=== PATIENT | female | born 1995 | race Caucasian/White ===

== ENCOUNTER 2023-04-21 16:20 | Emergency (ER) | payer OTHER, SELFPAY ==
[2023-04-21] VITALS (37 sets, daily range): BP systolic 0–147; BP diastolic 0–106; PULSE 104–153; RESP 16–39; O2SAT 53–99; BMI 56.5
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
--- NOTE | 2023-04-21 16:48 | XR_ITS ---
The [address] [address] Patient Name: GEOVANY GONZALEZ MRN: [id number] date: 1995 Sex: F Assigned Patient Location: ER Current Patient Location: ED.MAIN Accession/Order Number: [id number] Exam Date: 04/21/2023 18:19 Report Date: 04/21/2023 19:12 At the request of: APPLE BLEDSOE Procedure: XR chest 1V EXAM: XR chest 1V HISTORY: Dyspnea; technologist notes state overdose, unresponsive and finding. COMPARISON: 01/28/2021. TECHNIQUE: AP supine portable view of the chest performed. FINDINGS: The trachea is midline. The heart size is within normal limits. The cardiomediastinal silhouette and hilar shadows are within normal limits. There are low lung volumes with elevation of the right hemidiaphragm. There is no consolidation or infiltrates. There is no pleural effusion or pulmonary vascular congestion. There is no pneumothorax or osseous abnormality. XR/XR chest 1V IMPRESSION: Unremarkable expiratory chest. Electronically authenticated by: LOU BARRETT Date: 04/21/2023 19:12
--- NOTE | 2023-04-21 16:48 | ECG_ITS ---
The [facility] Test Date: 2023-04-21 Pat Name: GEOVANY GONZALEZ Department: Room: - Gender: Female School Cook: : 1995 Requested By: TOLU PLAZA Order Number: [id number] Reading MD: ANTIONETTE HIGGINS Measurements Intervals [place] Rate: 138 P: 233 [place]: 170 QRS: 81 QRSD: 78 T: 54 QT: 308 QTc: 389 Interpretive Statements Sinus tachycardia with PVC [address] depression 0102 ARTIFACT PRESENT 9150 abnormal ECG No previous ECG available for comparison Electronically Signed On 04-22-2023 7:11:00 EDT by ANTIONETTE HIGGINS
--- NOTE | 2023-04-21 16:50 | CT_ITS ---
The [address] [address] Patient Name: GEOVANY GONZALEZ MRN: [id number] date: 1995 Sex: F Assigned Patient Location: ER Current Patient Location: ER Accession/Order Number: [id number] Exam Date: 04/21/2023 18:30 Report Date: 04/21/2023 19:20 At the request of: APPLE BLEDSOE Procedure: CT head/brain wo con EXAM: CT scan of the head without contrast. Dose reduction technique used: Automated exposure control and/or adjustment of the mA and/or kV according to patient size and/or use of iterative reconstruction technique. REASON FOR EXAM: altered consciousness COMPARISON: CT scan dated 09/27/2018 CT/CT head/brain wo con IMPRESSION: Motion artifact degrades image quality and severely reduces sensitivity of the exam. No large intracranial hemorrhage. No mass effect or midline shift. No hydrocephalus. Remainder unremarkable. Electronically authenticated by: ALEXANDRA GARDNER Date: 04/21/2023 19:20
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
[2023-04-21] MEDS: 0.9 % SODIUM CHLORIDE 1,000 ML 100 ML IV (17:13)
[2023-04-21 17:17] LABS: pH VBG 7.381 (7.330-7.430)
[2023-04-21 17:18] LABS: PCO2 VBG 35.6 mmHg (40.0-52.0)
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
[2023-04-21 17:51] LABS: Amphetamine Screen Urine POSITIVE (NEGATIVE); Cannabinoid Screen Urine NEGATIVE (NEGATIVE); Cocaine Screen Urine NEGATIVE (NEGATIVE); Methamphetamines Screen Urine POSITIVE (NEGATIVE); Opiate Screen Urine NEGATIVE (NEGATIVE); Phencyclidine Screen Urine NEGATIVE (NEGATIVE)
[2023-04-21 17:52] LABS: Barbiturates Screen Urine NEGATIVE (NEGATIVE); Benzodiazepines Screen Urine NEGATIVE (NEGATIVE); Buprenorphine Screen Urine NEGATIVE (NEGATIVE); Methadone Screen Urine NEGATIVE (NEGATIVE); Oxycodone Screen Urine NEGATIVE (NEGATIVE); Tricyclic Antidepressant Urine NEGATIVE (NEGATIVE)
[2023-04-21] MEDS: NALOXONE HCL 2 MG/2 ML SYRINGE NS (18:21)
[2023-04-21] MEDS: LORAZEPAM 2 MG/ML 1 ML VIAL IV ×2 (18:22→20:36)
[2023-04-21 18:31] LABS: Alkaline Phosphatase 112 U/L (46-116); Anion Gap 22.4; BUN Creatinine Ratio 16.1; Bilirubin Total 1.4 mg/dL (0.2-1.0); Calcium 10.9 mg/dL (8.5-10.1); Carbon Dioxide 19.7 mmol/L (21.0-32.0); Chloride 108 mmol/L (98-107); Estimated GFR (African America 29 (>=60); Estimated GFR (Non-African Ame 24 (>=60); Glucose 150 mg/dL (74-106); Sodium 144 mmol/L (136-145); Total Protein 8.3 g/dL (6.4-8.2)
[2023-04-21 18:36] LABS: Salicylate <2.8 mg/dL (<=19.9)
[2023-04-21 18:46] LABS: Acetaminophen <2.0 ug/mL (10.0-30.0); Ethanol <3 mg/dL
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
[2023-04-21 18:51] LABS: Troponin I High Sensitivity 733.1 pg/mL (4.0-51.3)
[2023-04-21 18:52] LABS: Potassium 6.1 mmol/L (3.5-5.1)
[2023-04-21 19:00] LABS: Albumin Globulin Ratio 0.7; Albumin Level 3.3 g/dL (3.4-5.0)
[2023-04-21 19:01] LABS: Alanine Aminotransferase 1794 U/L (14-59)
--- NOTE | 2023-04-21 19:02 | PC.NURSE ---
nelli schumacher dark yellow urine pt remians in 4 pt restraints at this time [facility]0 infusing without difficulities pt remains agitated and on the quality control director at this time report given to avril jc rn and santo galloway
[2023-04-21 19:26] LABS: Lactate/Lactic Acid 4.8 mmol/L (0.4-2.0)
[2023-04-21 20:01] LABS: Myoglobin 14613 ng/mL (9-82)
[2023-04-21] MEDS: HALOPERIDOL LACTATE 5 MG/ML VIAL 10 MG IM (20:36)
[2023-04-21] MEDS: DIPHENHYDRAMINE HCL 50 MG/ML (1ML) VIAL IV (20:36)
[2023-04-21 21:05] LABS: Hematocrit 40.8 % (36.0-48.0); Hemoglobin 14.4 g/dL (12.0-16.0); Mean Corpuscular HGB Conc 35.3 g/dL (29.9-35.2); Mean Corpuscular Hemoglobin 30.6 pg (26.7-34.0); Mean Corpuscular Volume 86.8 fL (81.0-99.0); Mean Platelet Volume 9.1 fL (9.5-13.5); Platelet Count 546 10^3/uL (150-450); Red Cell Distribution Width 12.4 % (11.0-15.0); White Blood Count 27.2 10^3/uL (4.0-11.0)
[2023-04-21] MEDS: 0.9 % SODIUM CHLORIDE 1,000 ML 999 ML IV (21:07)
[2023-04-21] MEDS: SODIUM BICARBONATE 150 MEQ in DEXTROSE 5 % IN WATER 1,000 ML 250 MEQ IV (21:07)
[2023-04-21 21:24] LABS: Potassium 3.6 mmol/L (3.5-5.1)
[2023-04-21 21:27] LABS: Bilirubin Urine MODERATE (NEGATIVE); Blood Urine LARGE (NEGATIVE); Clarity Urine CLEAR (CLEAR); Color Urine DK. YELLOW (YELLOW); Glucose Urine UA 100 mg/dL (NEGATIVE); Ketones Urine TRACE mg/dL (NEGATIVE); Leukocyte Esterase Urine NEGATIVE (NEGATIVE); Nitrite Urine NEGATIVE (NEGATIVE); Protein Urine >=300 mg/dL (NEG/TRACE); Specific Gravity Urine >=1.030 (1.005-1.025); pH Urine 5.5 (5.0-9.0)
[2023-04-21 21:39] LABS: Lymphocytes Absolute Manual 1.36 10^3/uL (1.20-3.80); Monocytes Absolute Manual 1.36 10^3/uL (0.30-0.80); Segmented Neut Absolute Manual 24.48 10^3/uL (1.4-6.5)
[2023-04-21] MEDS: 0.9 % SODIUM CHLORIDE 1,000 ML 1000 ML IV (21:42)
[2023-04-21 21:43] LABS: Albumin Globulin Ratio 0.8; Albumin Level 3.5 g/dL (3.4-5.0); Alkaline Phosphatase 102 U/L (46-116); Bilirubin Total 1.2 mg/dL (0.2-1.0); Globulin 4.2 g/dL; Total Protein 7.7 g/dL (6.4-8.2)
[2023-04-21 21:47] LABS: Lactate/Lactic Acid 2.2 mmol/L (0.4-2.0)
[2023-04-21 21:48] LABS: Alanine Aminotransferase 1742 U/L (14-59); Aspartate Amino Transferase 1771 U/L (15-37); Bilirubin Direct 0.6 mg/dL (0.0-0.2); Creatine Kinase 10778 U/L (26-192)
[2023-04-21 21:49] LABS: Troponin I High Sensitivity 1160.2 pg/mL (4.0-51.3)
[2023-04-21 21:51] LABS: Bacteria Urine TRACE #/HPF (NONE SEEN); Cast Seen? NONE SEEN #/LPF (NONE SEEN); Mucus Urine NONE SEEN (NONE SEEN); Squamous Epithelial Cell Urine FEW #/LPF (NONE/RARE); Urine Microscopic Indicated YES; WBC Urine 0-2 #/HPF (NONE SEEN)
[2023-04-21 21:52] LABS: Amorphous Sediment Urine MANY; Crystals Seen? Seen #/HPF (None Seen); HCG Qualitative Urine* NEGATIVE (NEGATIVE); Urine Culture Indicated NO
[2023-04-21] MEDS: 0.9 % SODIUM CHLORIDE 1,000 ML 150 ML IV (22:50)
[2023-04-21 23:27] LABS: Acetaminophen <2.0 ug/mL (10.0-30.0)
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
[2023-04-22 00:27] VITALS: BP 130/89; PULSE 119; RESP 32; O2SAT 98
== END 2023-04-22 00:28 | disposition short-term general hospital (02) ==
PROVIDERS: Emergency Medicine Emergency Medical Services; Emergency Provider Emergency Medicine; PCP Nurse Practitioner
DX: T43.651A Poisoning by methamphetamines accidental (unintentional), initial encounter (principal); T43.621A Poisoning by amphetamines, accidental (unintentional), initial encounter
CPT/HCPCS: 36415; 70450; 71045; 80053; 80076; 80179; 80307; 80320; 80329; 81001; 82550; 82800; 83605; 83874; 84132; 84484; 84703; 85027; 93005; 96374; 96375; 96376; 99285

== ENCOUNTER 2023-08-04 00:29 | Emergency (ER) | payer OTHER, SELFPAY ==
[2023-08-04 00:31] VITALS: BP 156/96; PULSE 111; RESP 18; TEMP 36.9; O2SAT 98; BMI 38.4
--- NOTE | 2023-08-04 01:01 | ED_ITS ---
HPI - Eye Problem General Chief complaint: Eye Problems Stated complaint: RT EYE SWELLING Time Seen by Provider: 08/04/23 00:48 Source: patient Mode of arrival: walk-in Limitations: no limitations History of Present Illness HPI Narrative: This 28-year-old female who wears corrective lenses but not contact lenses presents for evaluation of one week of redness and tenderness and swelling to the right lower eyelid. She states there has been purulent drainage from the area. She has no pain with extraocular movement. There is no facial redness or swelling. She has been using teabags to the area and applying warm compresses. She does have the agency trainer/control systems specialist that she sees locally for her eyeglasses and eye exams. She also has a history of MRSA in the past. She has not had a fever. She states she does not wear contact lenses and she does not wear makeup. Related Data Home Medications Medication Instructions Recorded Confirmed aripiprazole 10 mg tablet 10 mg PO DAILY 08/04/23 08/04/23 buspirone 10 mg tablet 10 mg PO BID 08/04/23 08/04/23 clonidine HCl 0.1 mg tablet 0.1 mg PO TID 08/04/23 08/04/23 cyclobenzaprine 10 mg tablet 10 mg PO TID 08/04/23 08/04/23 gabapentin 300 mg capsule 300 mg PO TID 08/04/23 08/04/23 hydroxyzine HCl 25 mg tablet 25 mg PO DAILY 08/04/23 08/04/23 Allergies Allergy/AdvReac Type Severity Reaction Status Date / Time No Known Drug Allergies Allergy Verified 04/21/23 18:58 [facility] Social History Smoking status: Current every day smoker Exam Narrative Exam Narrative: Nurses note and vital signs reviewed; She is afebrile, mildly tachycardic with a pulse of 111 and blood pressures elevated at 156/96, she is not hypoxic with pulse ox of 98 percent on room air General: Alert, nontoxic female, notable right lower eyelid and conjunctiva swelling Skin: Warm, dry, no pallor noted. There is no rash noted. Head: Normocephalic, atraumatic Eye: Pupils are equal and reactive, vision is grossly intact, the right eye is notable for marked swelling of the lower eyelid with a small pustule on the lateral aspect of the lower eyelid which was expressed and cultured. There is no pain with extraocular movement. There is no periorbital redness swelling or sign of cellulitis. Ears, Nose, Mouth, and Throat: oral mucosa is moist. Nares patent. Mouth without vesicles. Cardiovascular: Regular Rate and Rhythm Respiratory: Patient is in no distress, no accessory muscle use, lungs are clear to auscultation, no wheezing, rales or rhonchi Neurological: A&O x4, normal speech Psychiatric: Cooperative Constitutional Vital Signs, click to edit/add: Last Vital Signs Temp 98.5 F 08/04/23 00:31 Pulse 111 H 08/04/23 00:31 Resp 18 08/04/23 00:31 BP 156/96 H 08/04/23 00:31 Pulse Ox 98 08/04/23 00:31 O2 Del Method Room Air 08/04/23 00:31 Course Vital Signs Vital signs: Vital Signs Temperature 98.5 F 08/04/23 00:31 Pulse Rate 111 H 08/04/23 00:31 Respiratory Rate 18 08/04/23 00:31 Blood Pressure 156/96 H 08/04/23 00:31 Pulse Oximetry 98 08/04/23 00:31 Oxygen Delivery Method Room Air 08/04/23 00:31 Temperature 98.5 F 08/04/23 00:31 Pulse Rate 111 H 08/04/23 00:31 Respiratory Rate 18 08/04/23 00:31 Blood Pressure 156/96 H 08/04/23 00:31 Pulse Oximetry 98 08/04/23 00:31 Oxygen Delivery Method Room Air 08/04/23 00:31 MDM - Eye Problem MDM Narrative Medical decision making narrative: This 28-year-old female with a history of MRSA who wears corrective lenses but not contact lenses presents for evaluation of one week of lower right eyelid swelling with conjunctival injection and a stye at the lateral aspect of the right lower eyelid. She has been using warm compresses and teabags with mild clinical improvement. She has not had a fever. She has no pain with extraocular movement. She denies any blurred vision. She states she has been having purulent drainage from the area. She had a small pustule at the lateral aspect of the right lower inner eyelid that I compressed and expressed some purulent drainage that was cultured. 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 She was given oral clindamycin instead and erythromycin ointment to use for the stye and conjunctival injection. He is instructed to continue using the warm compresses and tea bags and follow closely with her control systems specialist/agency trainer for further evaluation and treatment. Culture is pending at this time. Discharge Plan Discharge Chief Complaint: Eye Problems Clinical Impression: Hordeolum external, Blepharitis of eyelid of right eye Patient Disposition: Home, Self-Care Condition: Good Prescriptions / Home Meds: No Action aripiprazole 10 mg tablet 10 mg PO DAILY buspirone 10 mg tablet 10 mg PO BID clonidine HCl 0.1 mg tablet 0.1 mg PO TID cyclobenzaprine 10 mg tablet 10 mg PO TID gabapentin 300 mg capsule 300 mg PO TID hydroxyzine HCl 25 mg tablet 25 mg PO DAILY Instructions: Stye (ED), Blepharitis (ED) Additional Instructions: Continue using warm compresses to the right eye area. Use antibiotics as directed. Follow up as soon as possible with your control systems specialist or eye doctor. Return to the emergency department for change in her vision, worsening eye pain, fever or pain with any movement of upper respiratory infection. Stand Alone Forms: Portal Instructions Referrals: GHASSAN AL [Primary Care Provider] - 1 week
[2023-08-04] MEDS: ERYTHROMYCIN OP OINT 0.5% 1 GM TUBE OP (01:28)
[2023-08-04] MEDS: CLINDAMYCIN HCL 150 MG CAPSULE 300 MG PO (01:37)
--- NOTE | 2023-08-06 16:51 | PC.NURSE ---
PT CALLED IN NEW ANTIBIOTIC (BACTRIM) FOR POSITIVE EYE CULTURE. EVALUATED BY COLLEEN SAVAGE.
== END 2023-08-04 02:00 | disposition home or self-care (01) ==
PROVIDERS: Emergency Provider Emergency Medicine; PCP Nurse Practitioner Family
DX: H00.012 Hordeolum externum right lower eyelid (principal); H01.002 Unspecified blepharitis right lower eyelid; Z86.14 Personal history of Methicillin resistant Staphylococcus aureus infection; Z79.899 Other long term (current) drug therapy; F17.210 Nicotine dependence, cigarettes, uncomplicated
CPT/HCPCS: 87070; 87150; 87186; 99284

== ENCOUNTER 2024-05-10 06:51 | Emergency (ER) | payer SELFPAY ==
[2024-05-10 06:57] VITALS: BP 144/100; PULSE 103; TEMP 36.9; O2SAT 99; BMI 33.7
--- OUTSIDE RECORDS SUMMARY | 2024-05-10 06:58 | XMS_ITS | CCD ---
Author Organization [facility] Care Team Providers Care Communication Equipment Mechanic Name Role Phone NEAL HAMMOND Referring Unavailable NEAL HAMMOND Primary Care Unavailable DR NANI GUNTER Admitting Unavailable JANI, DR CARDOZA Attending Unavailable THANH TRISTAN Primary Care Unavailable JANI, DR CARDOZA Consulting Unavailable Vickie Nuñez Primary Care Provider [phone] NON STAFF Primary Care Provider UnavailDO Truong De Guzman Emergency Provider [phone] Truong Concepcion Attending Unavailable Truong Concepcion Admitting Unavailable NON STAFF Primary Care Unavailable THANH TRISTAN Primary Care Unavailable MARLYS STEWART Attending Unavailable Medications Current Medications Medication Drug Class(es) Dates Sig (Normalized) Sig (Original) busPIRone hydrochloride 5 mg oral tablet (3 sources) Start: 05-21-2023 take 5 mg by mouth twice daily Buspirone Active 5 MG PO Twice daily May 21, 2023 12:00am Start: 03-30-2023 take 5 mg by mouth twice daily 5 mg, Oral, 2 TIMES DAILY, First dose on Thu04/24/23 at 2100, Until Discontinued cefTRIAXone (ROCEPHIN) 1,000 mg in sterile water 10 mL IV syringe (1 source) Start: 04-25-2023 End: 04-28-2023 cefTRIAXone (ROCEPHIN) 1,000 mg in sterile water 10 mL IV syringe cloNIDine hydrochloride 0.1 mg oral tablet (1 source) Central alpha-2 Adrenergic Agonist Start: 05-21-2023 take 0.1 mg by mouth three times daily Clonidine Hcl Active 0.1 MG PO Three times daily May 21, 2023 12:00am cyclobenzaprine hydrochloride 5 mg oral tablet (1 source) Muscle Relaxant Start: 05-21-2023 take 5 mg by mouth three times daily Cyclobenzaprine Active 5 MG PO Three times daily May 21, 2023 12:00am 0.3 ml enoxaparin sodium 100 mg/ml prefilled syringe (1 source) Low Molecular Weight Heparin Start: 04-23-2023 enoxaparin Sodium (LOVENOX) injection 30 mg gabapentin 300 mg oral capsule (1 source) Anti-epileptic Agent Start: 05-21-2023 take 300 mg by mouth three times daily Gabapentin Active 300 MG PO Three times daily May 21, 2023 12:00am hydrOXYzine hydrochloride 25 mg oral tablet (4 sources) Antihistamine Start: 05-21-2023 take 25 mg by mouth once daily Hydroxyzine Hcl Active 25 MG PO Daily May 21, 2023 12:00am Start: 04-23-2023 End: 04-23-2023 hydrOXYzine (VISTARIL) injec tion 25 mg Start: 03-30-2023 take 25 mg by mouth every eight hours as needed 25 mg, Oral, EVERY 8 HOURS PRN, Starting on Thu04/24/23 at 1640, Until Discontinued, Anxiety nitrofurantoin, macrocrystals 25 mg / nitrofurantoin, monohydrate 75 mg oral capsule (3 sources) Nitrofuran Antibacterial Start: 04-26-2023 End: 05-02-2023 nitrofurantoin (macrocrystal-monohydrate) (MACROBID) capsule 100 mg ondansetron (ZOFRAN-ODT) disintegrating tablet 4 mg (1 source) Start: 04-22-2023 ondansetron (ZOFRAN-ODT) disintegrating tablet 4 mg oxyCODONE (1 source) Opioid Agonist Start: 04-26-2023 oxyCODONE (ROXICODONE) immediate release tablet 5 mg polyethylene glycol [id number] mg powder for oral solution (1 source) Osmotic Laxative Start: 04-22-2023 polyethylene glycol (GLYCOLAX) packet 17 g traZODone hydrochloride 50 mg oral tablet (3 sources) Serotonin Reuptake Inhibitor Start: 05-21-2023 take 50 mg by mouth once daily at bedtime Trazodone Active 50 MG PO Daily at bedtime May 21, 2023 12:00am Start: 03-30-2023 take 50 mg by mouth once daily as needed 50 mg, Oral, NIGHTLY PRN, Starting on Thu04/24/23 at 1640, Until Discontinued, Sleep Completed/Discontinued Medications Medication Drug Class(es) Dates Sig (Normalized) Sig (Original) acetaminophen 325 mg oral tablet (1 source) Start: 11-02-2017 End: 05-21-2023 take 2 tablets by mouth every six hours Acetaminophen (Tylenol) 325 mg Tablet Discontinued 2 TAB PO Every 6 hours November 02, 2017 12:00am May 21, 2023 6:34am 100 ml dexmedetomidine 0.004 mg/ml injection (1 source) Central alpha-2 Adrenergic Agonist Start: 04-22-2023 End: 04-26-2023 dexmedetomidine (PRECEDEX) 400 mcg in sodium chloride 0.9 % 100 mL infusion 250 ml glucose 50 mg/ml / sodium chloride 4.5 mg/ml injection (1 source) Start: 04-23-2023 End: 04-25-2023 dextrose 5 % and 0.45 % sodium chloride infusion 1 ml heparin sodium, porcine 5000 unt/ml prefilled syringe (1 source) Unfractionated Heparin, Anti-coagulant Start: 04-22-2023 End: 04-23-2023 heparin (porcine) injection 5,000 Units ibuprofen 200 mg oral tablet (1 source) Nonsteroidal Anti-inflammatory Drug Start: 12-11-2017 End: 12-16-2017 take 1 tablet by mouth three times daily Ibuprofen Discontinued 1 TAB PO Three times daily December 11, 2017 12:00am December 16, 2017 5:28pm 1 ml LORazepam 2 mg/ml injection (3 sources) Benzodiazepine Start: 04-23-2023 End: 04-23-2023 LORazepam (ATIVAN) injection 1 mg Start: 04-23-2023 End: 04-23-2023 LORazepam (ATIVAN) 2 MG/ML i njection Start: 04-22-2023 End: 04-22-2023 LORazepam (ATIVAN) injection 1 mg meloxicam 7.5 mg oral tablet (1 source) Nonsteroidal Anti-inflammatory Drug Start: 11-02-2017 End: 05-21-2023 take 1 tablet by mouth once daily Meloxicam Discontinued 1 TAB PO Daily November 02, 2017 12:00am May 21, 2023 6:34am microencapsulated potassium chloride 20 meq extended release oral tablet (4 sources) Start: 04-24-2023 End: 04-25-2023 potassium chloride (KLOR-CON M) extended release tablet 40 mEq Start: 04-22-2023 End: 04-22-2023 potassium chloride 20 mEq/50 mL IVPB (Central Line) 1000 ml sodium chloride 9 mg /ml injection (5 sources) Start: 04-22-2023 sodium chlorid e flush 0.9 % injection 5-40 mL Start: 04-22-2023 End: 04-26-2023 0.9 % sodium chloride infusi on Problems Problem Classification Problem Date Documented Date Episodic/Chronic Acute and unspecified renal failure (3 sources) Acute injury of kidney; Translations: [Acute kidney failure, unspecified] Onset: 04-22-2023 Resolved: 04-26-2023 Episodic Anxiety disorders (2 sources) Anxiety; Translations: [Anxiety disorder, unspecified] Onset: 04-25-2023 Chronic Cardiac dysrhythmias (1 source) Tachycardia; Translations: [Tachycardia, unspecified] 05-21-2023 Episodic Hepatitis (2 sources) Acute hepatitis C; Translations: [Acute hepatitis C without hepatic coma] Onset: 04-25-2023 Episodic Immunizations and screening for infectious disease (3 sources) Encounter for screening for infections with a predominantly sexual mode of transmission; Translations: [Encounter for screening for human immunodeficiency virus [HIV]] Onset: 06-03-2022 Episodic Mood disorders (2 sources) Depressive disorder; Translations: [Depression] Onset: 04-25-2023 Chronic Other connective tissue disease (1 source) Swelling of lower limb; Translations: [Other specified soft tissue disorders] Episodic Other connective tissue disease (1 source) Non-traumatic rhabdomyolysis; Translations: [Rhabdomyolysis] Episodic Other connective tissue disease (3 sources) Pain in lower limb; Translations: [Pain in leg, unspecified] Onset: 02-22-2024 05-21-2023 Episodic Other connective tissue disease (1 source) Pain in left lower limb; Translations: [Pain in left leg] Onset: 05-21-2023 Episodic Other connective tissue disease (1 source) Other specified soft tissue disorders; Translations: [Other specified soft tissue disorders] Onset: 05-21-2023 Episodic Other injuries and conditions due to external causes (1 source) Other injury of unspecified body region, initial encounter; Translations: [Other injury of unspecified body region, initial encounter] Onset: 02-22-2024 Episodic Other nervous system disorders (2 sources) Toxic metabolic encephalopathy; Translations: [Toxic metabolic encephalopathy] Onset: 04-25-2023 Resolved: 04-26-2023 Episodic Other screening for suspected conditions (not mental disorders or infectious disease) (5 sources) Encounter for screening for diseases of the blood and blood-forming organs and certain disorders involving the immune mechanism; Translations: [Other specified abnormal findings of blood chemistry] Onset: 05-30-2022 Episodic Poisoning by other medications and drugs (2 sources) Poisoning by unspecified drugs, medicaments and biological substances, undetermined, initial encounter; Translations: [Poisoning by unspecified drug or medicinal substance] Onset: 04-22-2023 Resolved: 04-26-2023 Episodic Residual codes; unclassified (1 source) Edema of lower extremity; Translations: [Localized edema] 05-21-2023 Episodic Skin and subcutaneous tissue infections (1 source) Local infection of the skin and subcutaneous tissue, unspecified; Translations: [Local infection of the skin and subcutaneous tissue, unspecified] Onset: 02-22-2024 Episodic Substance-related disorders (1 source) Substance abuse; Translations: [Other psychoactive substance use, unspecified, uncomplicated] 05-21-2023 Episodic Urinary tract infections (2 sources) Escherichia coli urinary tract infection; Translations: [Urinary tract infection, site not specified] Onset: 04-25-2023 Episodic Results Test Name Value Interpretation Reference Range Facility Activated partial thrombopla stin time (aPTT) in platelet poor plasma by coagulation aOrdered By: Truong Concepcion on 05-21-2023 aPTT Coag (PPP) [Time] 30.5 s 25.1-36.5 [facility] Comment on above: A hematocrit value g reater than 55% may lead to inaccurate results in coagulation testing. Patients having hematocrit values >55% require a special collection tube for coagulation studies. Please contact the laboratory at [phone] for redraw instructions. Alanine aminotransferase [En zymatic activity/volume] in Serum or PlasmaOrdered By: Truong Concepcion on 05-21-2023 ALT [Catalytic activity/Vol] 30 U/L 7-52 [facility] Albumin [Mass/volume] in Ser um or Plasma by Bromocresol green (BCG) dye binding methoOrdered By: Truong Concepcion on 05-21-2023 Albumin BCG dye [Mass/Vol] 4.1 g/dL 3.5-5.7 [facility] Alkaline phosphatase [Enzyma tic activity/volume] in Serum or PlasmaOrdered By: Truong Concepcion on 05-21-2023 ALP [Catalytic activity/Vol] 91 U/L 34-104 [facility] Amphetamine Screen Ql (U)Ord ered By: Truong Concepcion on 05-21-2023 Amphetamines Ql (U) Positive Negative [facility] Aspartate aminotransferase [ Enzymatic activity/volume] in Serum or PlasmaOrdered By: Truong Concepcion on 05-21-2023 AST [Catalytic activity/Vol] 30 U/L 13-39 [facility] Automated epithelial cells c ount in urine sediment (number/area)Ordered By: Truong Concepcion on 05-21-2023 Epithelial cells Auto (Urine sed) [#/Area] 20-49 [HPF] 0-2 [facility] Automated erythrocytes count in urine sediment (number/area)Ordered By: Truong Concepcion on 05-21-2023 RBC Auto (Urine sed) [#/Area] 0-1 [HPF] 0-4 [facility] Automated leukocytes count i n urine sediment (number/area)Ordered By: Truong Concepcion on 05-21-2023 WBC Auto (Urine sed) [#/Area] 0-1 [HPF] 0-4 [facility] Automated urine color determ inationOrdered By: Truong Concepcion on 05-21-2023 Color (U) Yellow Normal Yellow [facility] Comment on above: Order Comment: Name Collection Type:: Clean-Voided Midstream Performed By: #### U HCG, ADDONUAPLUS ####[facility] [id number] [place] [address] [facility] Automated urine hyaline cast s count (number/volume)Ordered By: Truong Concepcion on 05-21-2023 Hyaline casts Auto (U) [#/Vol] None seen [LPF] 0-1 [facility] B-Type Natriuretic Peptideon 05-21-2023 Natriuretic peptide B (Bld) [Mass/Vol] 9.0 pg/mL Normal 5-100 [facility] Comment on above: Result Comment: PERF ORMED BY: [facility] [address] [place] [address] PATHOLOGIST SHEET LAYER OBI MORRIS M.D. Performed By: #### P T, LACTIC, CMP, HS TROP, BNP, MG, CK, PTT ####[facility] [id number] [place] [address] [facility] Barbiturates [Presence] in U rine by Screen methodOrdered By: Truong Concepcion on 05-21-2023 Barbiturates Screen Ql (U) Negative Negative [facility] Basophils Auto (Bld) [#/Vol] Ordered By: Truong Concepcion on 05-21-2023 Basophils (Bld) [#/Vol] 0.1 10*3/uL 0.0-0.2 [facility] Basophils/100 WBC Auto (Bld) Ordered By: Truong Concepcion on 05-21-2023 Basophils/100 WBC (Bld) 0.6 % . [facility] Benzodiazepines Screen Ql (U )Ordered By: Truong Concepcion on 05-21-2023 Benzodiazepines Ql (U) Negative Negative [facility] Benzoylecgonine [Presence] i n Urine by Screen methodOrdered By: Truong Concepcion on 05-21-2023 Benzoylecgonine Screen Ql (U) Positive Negative [facility] Bilirubin Test strip Ql (U)O rdered By: Truong Concepcion on 05-21-2023 Bilirubin Ql (U) Negative Negative [facility] Bilirubin.total [Mass/volume ] in Serum or PlasmaOrdered By: Truong Concepcion on 05-21-2023 Bilirubin [Mass/Vol] 0.4 mg/dL 0.3-1.0 [facility] Calcium [Mass/volume] in Ser um or PlasmaOrdered By: Truong Concepcion on 05-21-2023 Calcium [Mass/Vol] 9.2 mg/dL 8.6-10.3 [facility] Cannabinoids [Presence] in U rine by Screen methodOrdered By: Truong Concepcion on 05-21-2023 Cannabinoids Screen Ql (U) Negative Negative [facility] Comment on above: These are unconfirme d results and should not be used for legal purposes. Drug Cut-Off Concentration: AMPH 1000 ng/mL AMY 200 ng/mL FANNY 200 ng/mL COCM 300 ng/mL OP 300 ng/mL PCP 25 ng/mL THC 20 ng/mL Carbon dioxide, total [Moles /volume] in Serum or PlasmaOrdered By: Truong Concepcion on 05-21-2023 CO2 [Moles/Vol] 28.3 mmol/L 21.0-31.0 [facility] Casts typing in urine sedime nt by light microscopyOrdered By: Truong Concepcion on 05-21-2023 Casts LM Nom (Urine sed) None seen [LPF] None Seen [facility] Chloride [Moles/volume] in S toyin or PlasmaOrdered By: Truong Concepcion on 05-21-2023 Chloride [Moles/Vol] 104 mmol/L 98-107 [facility] Complete Blood Count Auto Di ffon 05-21-2023 Basophils (Bld) [#/Vol] 0.1 10*3/uL Normal 0.0-0.2 [facility] Comment on above: Result Comment: PERF ORMED BY: [place] [address] PATHOLOGIST SHEET LAYER OBI MORRIS M.D. Performed By: #### C BC #### [address] Basophils/100 WBC (Bld) 0.6 % Normal . [facility] Comment on above: Performed By: #### C BC #### [place] [address] [place] Eosinophils (Bld) [#/Vol] 0.2 10*3/uL Normal 0.0-0.45 [facility] Comment on above: Performed By: #### C BC #### [place] [address] [place] Eosinophils/100 WBC (Bld) 2.2 % Normal . [facility] Comment on above: Performed By: #### C BC #### [address] Erythrocyte distribution width (RBC) [Ratio] 13.2 % Normal 11.9-15.3 [facility] Comment on above: Performed By: #### C BC #### [facility] [address] Hematocrit (Bld) [Volume fraction] 33.2 % Low 34.0-46.4 [facility] Comment on above: Performed By: #### C BC #### [facility] [address] Hemoglobin (Bld) [Mass/Vol] 11.4 g/dL Low 11.8-15.4 [facility] Comment on above: Performed By: #### C BC #### [facility] [address] Lymphocytes (Bld) [#/Vol] 2.8 10*3/uL Normal 1.00-4.8 [facility] Comment on above: Performed By: #### C BC #### [address] Lymphocytes/100 WBC (Bld) 27.4 % Normal . [facility] Comment on above: Performed By: #### C BC #### [facility] [address] MCH (RBC) [Entitic mass] 30.4 pg Normal 24.7-34.3 [facility] Comment on above: Performed By: #### C BC #### [address] MCV (RBC) [Entitic vol] 88.8 fL Normal 80-100 [facility] Comment on above: Performed By: #### C BC #### [address] Mean Corpuscular HGB Conc 34.2 g/dL Normal 32.0-35.0 [facility] Comment on above: Performed By: #### C BC #### [address] Monocytes (Bld) [#/Vol] 0.7 10*3/uL Normal 0.0-0.8 [facility] Comment on above: Performed By: #### C BC #### [facility] [address] [place] [address] [place] Monocytes/100 WBC (Bld) 20.95 % High 0.00-20.00 [facility] Comment on above: Result Comment: For adults in ED, MDW > 20.0 may be associated with a higher risk of sepsis during the first 12 hrs of hospital admission Performed By: #### C BC #### [facility] [address] Monocytes/100 WBC (Bld) 7.3 % Normal . [facility] Comment on above: Performed By: #### C BC #### [address] Neutrophils (Bld) [#/Vol] 6.4 10*3/uL Normal 1.8-7.7 [facility] Comment on above: Performed By: #### C BC #### [address] Neutrophils/100 WBC (Bld) 62.5 % Normal . [facility] Comment on above: Performed By: #### C BC #### [address] NRBC% 0.0 /100{WBC} Normal 0-0.5 [facility] Comment on above: Performed By: #### C BC #### [address] Platelet mean volume (Bld) [Entitic vol] 7.5 fL Normal 6.3-10.7 [facility] Comment on above: Performed By: #### C BC #### [place] [address] [place] Platelets (Bld) [#/Vol] 427 10*3/uL Normal 150-450 [facility] Comment on above: Performed By: #### C BC #### [place] [address] [place] RBC (Bld) [#/Vol] 3.74 10*6/uL Normal 3.60-5.00 [facility] Comment on above: Performed By: #### C BC #### [address] WBC (Bld) [#/Vol] 10.2 10*3/uL Normal 3.8-11.6 [facility] Comment on above: Performed By: #### C BC #### [address] Comprehensive Metabolic Pane patrice 05-21-2023 Albumin [Mass/Vol] 4.1 g/dL Normal 3.5-5.7 [facility] Comment on above: Performed By: #### P T, LACTIC, CMP, HS TROP, BNP, MG, CK, PTT #### [address] Albumin/Globulin [Mass ratio] 1.2 {ratio} Normal [facility] Comment on above: Performed By: #### P T, LACTIC, CMP, HS TROP, BNP, MG, CK, PTT #### [address] ALP [Catalytic activity/Vol] 91 U/L Normal 34-104 [facility] Comment on above: Performed By: #### P T, LACTIC, CMP, HS TROP, BNP, MG, CK, PTT #### [address] ALT [Catalytic activity/Vol] 30 U/L Normal 7-52 [facility] Comment on above: Performed By: #### P T, LACTIC, CMP, HS TROP, BNP, MG, CK, PTT #### [address] Anion gap [Moles/Vol] 5.3 mmol/L Low 6.0-15.0 [facility] Comment on above: Performed By: #### P T, LACTIC, CMP, HS TROP, BNP, MG, CK, PTT #### [address] AST [Catalytic activity/Vol] 30 U/L Normal 13-39 [facility] Comment on above: Performed By: #### P T, LACTIC, CMP, HS TROP, BNP, MG, CK, PTT #### [facility] [address] Bilirubin [Mass/Vol] 0.4 mg/dL Normal 0.3-1.0 [facility] Comment on above: Performed By: #### P T, LACTIC, CMP, HS TROP, BNP, MG, CK, PTT #### [facility] [address] Calcium [Mass/Vol] 9.2 mg/dL Normal 8.6-10.3 [facility] Comment on above: Performed By: #### P T, LACTIC, CMP, HS TROP, BNP, MG, CK, PTT #### [facility] [address] Chloride [Moles/Vol] 104 mmol/L Normal 98-107 [facility] Comment on above: Performed By: #### P T, LACTIC, CMP, HS TROP, BNP, MG, CK, PTT #### [facility] [address] CO2 [Moles/Vol] 28.3 mmol/L Normal 21.0-31.0 [facility] Comment on above: Performed By: #### P T, LACTIC, CMP, HS TROP, BNP, MG, CK, PTT #### [facility] [address] Creatinine [Mass/Vol] 0.72 mg/dL Normal 0.60-1.20 [facility] Comment on above: Performed By: #### P T, LACTIC, CMP, HS TROP, BNP, MG, CK, PTT #### [facility] [address] [place] [address] [place] Creatinine Clr Calc Pharmacy 135.61 Normal [facility] Comment on above: Performed By: #### P T, LACTIC, CMP, HS TROP, BNP, MG, CK, PTT #### [address] GFR/1.73 sq M.predicted MDRD (S/P/Bld) [Vol rate/Area] mL/min/{1.73_m2} Normal [facility] Comment on above: Performed By: #### P T, LACTIC, CMP, HS TROP, BNP, MG, CK, PTT #### [facility] [address] Globulin (S) [Mass/Vol] 3.3 g/dL [facility] Comment on above: Performed By: #### P T, LACTIC, CMP, HS TROP, BNP, MG, CK, PTT #### [facility] [address] Glucose [Mass/Vol] 120 mg/dL High 70-100 [facility] Comment on above: Result Comment: [facility] Glucose Reference Range is dependent on time and content of last meal. Glucose of more than 200 mg/dL in a nonstressed, ambulatory subject supports the diagnosis of Diabetes Mellitus. ADA recommended reference range Performed By: #### P T, LACTIC, CMP, HS TROP, BNP, MG, CK, PTT #### [facility] [address] [place] [address] Potassium [Moles/Vol] 3.6 mmol/L Normal 3.5-5.1 [facility] Comment on above: Performed By: #### P T, LACTIC, CMP, HS TROP, BNP, MG, CK, PTT #### [address] Protein [Mass/Vol] 7.4 g/dL Normal 6.4-8.9 [facility] Comment on above: Performed By: #### P T, LACTIC, CMP, HS TROP, BNP, MG, CK, PTT #### [facility] [address] Sodium [Moles/Vol] 134 mmol/L Low 136-145 [facility] Comment on above: Performed By: #### P T, LACTIC, CMP, HS TROP, BNP, MG, CK, PTT #### [facility] [address] Urea nitrogen [Mass/Vol] 8 mg/dL Normal 7-25 [facility] Comment on above: Performed By: #### P T, LACTIC, CMP, HS TROP, BNP, MG, CK, PTT #### [facility] [address] [place] [id number] [place] Creatine Kinaseon 05-21-2023 CK [Catalytic activity/Vol] 398 U/L High [facility] Comment on above: Performed By: #### P T, LACTIC, CMP, HS TROP, BNP, MG, CK, PTT ####[facility] Creatine kinase [Enzymatic a ctivity/volume] in Serum or PlasmaOrdered By: Truong Concepcion on 05-21-2023 CK [Catalytic activity/Vol] 398 U/L [facility] Creatinine [Mass/volume] in Serum or PlasmaOrdered By: Truong Concepcion on 05-21-2023 Creatinine [Mass/Vol] 0.72 mg/dL 0.60-1.20 [facility] Dipstick and Microscopicon 0 05-21-2023 Appearance (U) Cloudy Critically abnormal Clear [facility] Comment on above: Order Comment: Name Collection Type:: Clean-Voided Midstream Performed By: #### U HCG, ADDONUAPLUS ####[place] [id number] [address] Bacteria,Urine Rare High None Seen [facility] Comment on above: Order Comment: Name Collection Type:: Clean-Voided Midstream Performed By: #### U HCG, ADDONUAPLUS ####[address] Bilirubin,Urine Negative Normal Negative [facility] Comment on above: Order Comment: Name Collection Type:: Clean-Voided Midstream Performed By: #### U HCG, ADDONUAPLUS ####[place] [id number] [address] Glucose Ql (U) Normal Normal Normal [facility] Comment on above: Order Comment: Name Collection Type:: Clean-Voided Midstream Performed By: #### U HCG, ADDONUAPLUS ####[address] Hyaline Casts,Urine None Seen Normal 0-1 [facility] Comment on above: Order Comment: Name Collection Type:: Clean-Voided Midstream Performed By: #### U HCG, ADDONUAPLUS ####[address] [address] [facility] Ketones Ql (U) Negative Normal Negative [facility] Comment on above: Order Comment: Name Collection Type:: Clean-Voided Midstream Performed By: #### U HCG, ADDONUAPLUS ####[address] [address] [facility] Leukocyte esterase Test strip Ql (U) Negative Normal Negative [facility] Comment on above: Order Comment: Name Collection Type:: Clean-Voided Midstream Performed By: #### U HCG, ADDONUAPLUS ####[address] [address] [facility] Nitrite,Urine Negative Normal Negative [facility] Comment on above: Order Comment: Name Collection Type:: Clean-Voided Midstream Performed By: #### U HCG, ADDONUAPLUS ####[address] [address] [facility] Occult Blood,Urine Negative Normal Negative [facility] Comment on above: Order Comment: Name Collection Type:: Clean-Voided Midstream Performed By: #### U HCG, ADDONUAPLUS ####[address] [address] [facility] Other Casts,Urine None Seen Normal None Seen [facility] Comment on above: Order Comment: Name Collection Type:: Clean-Voided Midstream Performed By: #### U HCG, ADDONUAPLUS ####[address] [address] [facility] Protein,Urine Negative Normal Negative [facility] Comment on above: Order Comment: Name Collection Type:: Clean-Voided Midstream Performed By: #### U HCG, ADDONUAPLUS ####[address] [address] [facility] RBC LM.HPF (Urine sed) [#/Area] 0 /[HPF] Normal 0-4 [facility] Comment on above: Order Comment: Name Collection Type:: Clean-Voided Midstream Performed By: #### U HCG, ADDONUAPLUS ####[address] Specificy [place],Urine 1.011 Normal 1.001-1.030 [facility] Comment on above: Order Comment: Name Collection Type:: Clean-Voided Midstream Performed By: #### U HCG, ADDONUAPLUS ####[address] Squamous Epithelial Cell,Urine 20-49 High 0-2 [facility] Comment on above: Order Comment: Name Collection Type:: Clean-Voided Midstream Performed By: #### U HCG, ADDONUAPLUS ####[address] Urobilinogen,Urine Normal Normal Normal [facility] Comment on above: Order Comment: Name Collection Type:: Clean-Voided Midstream Performed By: #### U HCG, ADDONUAPLUS ####[address] WBC LM.HPF (Urine sed) [#/Area] 0 /[HPF] Normal 0-4 [facility] Comment on above: Order Comment: Name Collection Type:: Clean-Voided Midstream Performed By: #### U HCG, ADDONUAPLUS ####[address] Drug Screen,Urineon 05-21-20 23 Amphetamine Screen,Urine Positive High Negative [facility] Comment on above: Performed By: #### U RDS #### [facility] [address] [place] [address] [place] Barbiturate Screen,Urine Negative Normal Negative [facility] Comment on above: Performed By: #### U RDS #### [facility] [address] [place] [address] [place] Benzodiazepines Screen,Urine Negative Normal Negative [facility] Comment on above: Performed By: #### U RDS #### [facility] [address] [place] [address] [place] Cannabinoid Screen,Urine Negative Normal Negative [facility] Comment on above: Result Comment: Thes e are unconfirmed results and should not be used for legal purposes. Drug Cut-Off Concentration: AMPH 1000 ng/mL AMY 200 ng/mL FANNY 200 ng/mL COCM 300 ng/mL OP 300 ng/mL PCP 25 ng/mL THC 20 ng/mL PERFORMED BY: [place] [address] PATHOLOGIST SHEET LAYER OBI MORRIS M.D. Performed By: #### U RDS #### [address] Cocaine Screen,Urine Positive High Negative [facility] Comment on above: Performed By: #### U RDS #### [address] Opiate Screen,Urine Negative Normal Negative [facility] Comment on above: Performed By: #### U RDS #### [place] [address] [place] Phencyclidine Screen,Urine Negative Normal Negative [facility] Comment on above: Performed By: #### U RDS #### [address] ECG 12 lead ECGon 05-21-2023 ECG 12 lead ECG [facility] [employer] [address] [place] [address] Electrocardiograph Report Signed Patient: Tracy Bennett MR#: [id number] 436 : 1995 Acct:[id number] Age/Sex: 28 / F ADM Date: 05/21/23 Loc: ER Room: Type: [facility] ER Attending Dr: Ordering Provider: Truong Concepcion DO Date of Service: 05/21/23 ECG/ECG 12 lead ECG: Skin/Abscess/Foreign Body Copies to: Test Reason : Blood Pressure : 164/104 mmHG Vent. Rate : 122 BPM Atrial Rate : 122 BPM P-R Int : 144 ms QRS Dur : 080 ms QT Int : 314 ms P-R-T Axes : 060 034 027 degrees QTc Int : 447 ms Sinus tachycardia Confirmed by Truong CONCEPCION DO ([id number]) on 05/21/2023 12:21:01 PM Referred By: Electronically Signed By:Truong CONCEPCION DO Transcribed By: MUS Signed By Truong Concepcion, 0 05/21/23 1221 Normal [facility] Eosinophils Auto (Bld) [#/Vo l]Ordered By: Truong Concepcion on 05-21-2023 Eosinophils (Bld) [#/Vol] 0.2 10*3/uL 0.0-0.45 [facility] Eosinophils/100 WBC Auto (Bl d)Ordered By: Truong Concepcion on 05-21-2023 Eosinophils/100 WBC (Bld) 2.2 % . [facility] Erythrocyte distribution wid th Auto (RBC) [Ratio]Ordered By: Truong Concepcion on 05-21-2023 Erythrocyte distribution width (RBC) [Ratio] 13.2 % 11.9-15.3 [facility] Globulin Calc (S) [Mass/Vol] Ordered By: Truong Concepcion on 05-21-2023 Globulin (S) [Mass/Vol] 3.3 g/dL [facility] Glucose [Mass/volume] in Ser um or PlasmaOrdered By: Truong Concepcion on 05-21-2023 Glucose [Mass/Vol] 120 mg/dL 70-100 [facility] Comment on above: ADA recommended refe rence rangeRandom Glucose Reference Range is dependent on time and content of last meal. Glucose of more than 200 mg/dL in a nonstressed, ambulatory subject supports the diagnosis of Diabetes Mellitus. HCG ( test) IA.rapi d Ql (U)Ordered By: Truong Concepcion on 05-21-2023 HCG ( test) Ql (U) Negative [facility] HCG,Urineon 05-21-2023 Beta HCG ( test) Ql (U) Negative Normal [facility] Comment on above: Order Comment: Name Collection Type:: Clean-Voided Midstream Result Comment: PERF ORMED BY: [facility] [address] [place] [address] PATHOLOGIST SHEET LAYER OBI MORRIS M.D. Performed By: #### U HCG, ADDONUAPLUS ####[facility] Hematocrit Auto (Bld) [Volum e fraction]Ordered By: Truong Concepcion on 05-21-2023 Hematocrit (Bld) [Volume fraction] 33.2 % 34.0-46.4 [facility] Hemoglobin [Mass/volume] in BloodOrdered By: Truong Concepcion on 05-21-2023 Hemoglobin (Bld) [Mass/Vol] 11.4 g/dL 11.8-15.4 [facility] INR in Platelet poor plasma by Coagulation assayOrdered By: Truong loco on 05-21-2023 INR Coag (PPP) [Relative time] 1.2 {INR} [facility] Comment on above: INR Therapeutic Rang e A) Pre- and Peroperative OAT started two weeks before surgery. NOT HIP SURGERY: 1.5 - 2.5 HIP SURGERY: 2 - 3B) Primary and secondary prevention of venous THROMBOSIS: 2 - 3C) Active venous thrombosis, pulmonary embolismand prevention of recurrent venous thrombosis: 2 - 3D) Prevention of arterial thromboembolismincluding patients with mechanical heart valves: 3 - 4.5 Ketones Auto test strip (U) [Mass/Vol]Ordered By: Truong Kush on 05-21-2023 Ketones (U) [Mass/Vol] Negative Negative [facility] Lactate [Moles/volume] in Se rum or PlasmaOrdered By: Truong Concepcion on 05-21-2023 Lactate [Moles/Vol] 1.0 mmol/L 0.5-2.2 [facility] Lactic Acidon 05-21-2023 Lactate [Moles/Vol] 1.0 mmol/L Normal 0.5-2.2 [facility] Comment on above: Result Comment: PERF ORMED BY: [place] [address] PATHOLOGIST SHEET LAYER OBI MORRIS M.D. Performed By: #### P T, LACTIC, CMP, HS TROP, BNP, MG, CK, PTT #### [address] Leukocytes [#/volume] correc shlomo for nucleated erythrocytes in Blood by Automated counOrdered By: [facility]2023 WBC corrected for nucl RBC Auto (Bld) [#/Vol] 10.2 10*3/uL 3.8-11.6 [facility] Lymphocytes Auto (Bld) [#/Vo l]Ordered By: Truong Concepcion on 05-21-2023 Lymphocytes (Bld) [#/Vol] 2.8 10*3/uL 1.00-4.8 [facility] Lymphocytes/100 WBC Auto (Bl d)Ordered By: Truong Concepcion on 05-21-2023 Lymphocytes/100 WBC (Bld) 27.4 % . [facility] MCH Auto (RBC) [Entitic mass ]Ordered By: Truong Concepcion on 05-21-2023 MCH (RBC) [Entitic mass] 30.4 pg 24.7-34.3 [facility] MCHC Auto (RBC) [Mass/Vol]Or dered By: Truong Concepcion on 05-21-2023 MCHC (RBC) [Mass/Vol] 34.2 g/dL 32.0-35.0 [facility] MCV Auto (RBC) [Entitic vol] Ordered By: Truong Concepcion on 05-21-2023 MCV (RBC) [Entitic vol] 88.8 fL 80-100 [facility] Magnesiumon 05-21-2023 Magnesium [Mass/Vol] 1.9 mg/dL Normal 1.9-2.7 [facility] Comment on above: Result Comment: PERF ORMED BY: [place] [address] PATHOLOGIST SHEET LAYER OBI MORRIS M.D. Performed By: #### P T, LACTIC, CMP, HS TROP, BNP, MG, CK, PTT #### [facility] [address] [place] [address] Magnesium [Mass/volume] in S toyin or PlasmaOrdered By: Truong Concepcion on 05-21-2023 Magnesium [Mass/Vol] 1.9 mg/dL 1.9-2.7 [facility] Monocyte distribution width [Entitic volume] in Blood by AutomatedOrdered By: Truong Concepcion on 05-21-2023 Monocyte distribution width Auto (Bld) [Entitic vol] 20.95 % 0.00-20.00 [facility] Comment on above: For adults in ED, MD W > 20.0 may be associated with a higher risk of sepsis during the first 12 hrs of hospital admission Monocytes Auto (Bld) [#/Vol] Ordered By: Truong Concepcion on 05-21-2023 Monocytes (Bld) [#/Vol] 0.7 10*3/uL 0.0-0.8 [facility] Monocytes/100 WBC Auto (Bld) Ordered By: Truong Concepcion on 05-21-2023 Monocytes/100 WBC (Bld) 7.3 % . [facility] Natriuretic peptide B [Mass/ Vol]Ordered By: Truong Concepcion on 05-21-2023 Natriuretic peptide B (Bld) [Mass/Vol] 9.0 pg/mL 5-100 [facility] Neutrophils Auto (Bld) [#/Vo l]Ordered By: Truong Concepcion on 05-21-2023 Neutrophils (Bld) [#/Vol] 6.4 10*3/uL 1.8-7.7 [facility] Neutrophils/100 WBC Auto (Bl d)Ordered By: Truong Concepcion on 05-21-2023 Neutrophils/100 WBC (Bld) 62.5 % . [facility] Nitrite Test strip Ql (U)Ord ered By: Truong Concepcion on 05-21-2023 Nitrite Ql (U) Negative Negative [facility] No Panel InformationOrdered By: Truong Concepcion on 05-21-2023 Estimated GFR (CKD-EPI) > 60.0 mL/Min [facility] Creatinine Clearance (Chem 135.61 [facility] Nucleated erythrocytes [Pres ence] in Blood by Automated countOrdered By: Truong Concepcion on 05-21-2023 Nucleated RBC Auto Ql (Bld) 0.0 /100{WBC} 0-0.5 [facility] Opiates [Presence] in Urine by Screen methodOrdered By: Truong Concepcion on 05-21-2023 Opiates Screen Ql (U) Negative Negative [facility] Partial Thromboplastin Timeo n 05-21-2023 aPTT Coag (Bld) [Time] 30.5 s Normal 25.1-36.5 [facility] Comment on above: Result Comment: A he matocrit value greater than 55% may lead to inaccurate results in coagulation testing. Patients having hematocrit values >55% require a special collection tube for coagulation studies. Please contact the laboratory at [phone] for redraw instructions. PERFORMED BY: [facility] [address] [place] [address] PATHOLOGIST SHEET LAYER OBI MORRIS M.D. Performed By: #### P T, LACTIC, CMP, HS TROP, BNP, MG, CK, PTT #### [address] [address] [facility] Phencyclidine Screen Ql (U)O rdered By: Truong Concepcion on 05-21-2023 Phencyclidine Ql (U) Negative Negative [facility] Platelet mean volume Auto (B ld) [Entitic vol]Ordered By: Truong Concepcion on 05-21-2023 Platelet mean volume (Bld) [Entitic vol] 7.5 fL 6.3-10.7 [facility] Platelets Auto (Bld) [#/Vol] Ordered By: Truong Concepcion on 05-21-2023 Platelets (Bld) [#/Vol] 427 10*3/uL 150-450 [facility] Potassium [Moles/volume] in Serum or PlasmaOrdered By: Truong Concepcion on 05-21-2023 Potassium [Moles/Vol] 3.6 mmol/L 3.5-5.1 [facility] Protein Auto test strip (U) [Mass/Vol]Ordered By: Truong Concepcion on 05-21-2023 Protein (U) [Mass/Vol] Negative Negative [facility] Protein [Mass/volume] in Ser um or PlasmaOrdered By: Truong Concepcion on 05-21-2023 Protein [Mass/Vol] 7.4 g/dL 6.4-8.9 [facility] Prothrombin Time INRon 05-21 INR Coag (PPP) [Relative time] 1.2 {INR} Normal [facility] Comment on above: Result Comment: INR Therapeutic Range A) Pre- and Peroperative OAT started two weeks before surgery. NOT HIP SURGERY: 1.5 - 2.5 HIP SURGERY: 2 - 3 B) Primary and secondary prevention of venous THROMBOSIS: 2 - 3 C) Active venous thrombosis, pulmonary embolism and prevention of recurrent venous thrombosis: 2 - 3 D) Prevention of arterial thromboembolism including patients with mechanical heart valves: 3 - 4.5 Performed By: #### P T, LACTIC, CMP, HS TROP, BNP, MG, CK, PTT #### [facility] [address] [place] [id number] [facility] PT Coag (PPP) [Time] 14.2 s High 9.0-12.9 [facility] Comment on above: Result Comment: A he matocrit value greater than 55% may lead to inaccurate results in coagulation testing. Patients having hematocrit values >55% require a special collection tube for coagulation studies. Please contact the laboratory at [phone] for redraw instructions. Performed By: #### P T, LACTIC, CMP, HS TROP, BNP, MG, CK, PTT #### [facility] [address] [place] [id number] [facility] Prothrombin time (PT)Ordered By: Truong Concepcion on 05-21-2023 PT Coag (PPP) [Time] 14.2 s 9.0-12.9 [facility] Comment on above: A hematocrit value g reater than 55% may lead to inaccurate results in coagulation testing. Patients having hematocrit values >55% require a special collection tube for coagulation studies. Please contact the laboratory at [phone] for redraw instructions. RBC Auto (Bld) [#/Vol]Ordere d By: Truong Concepcion on 05-21-2023 RBC (Bld) [#/Vol] 3.74 10*6/uL 3.60-5.00 [facility] Serum or plasma albumin/glob ulin mass ratioOrdered By: Truong Concepcion on 05-21-2023 Albumin/Globulin [Mass ratio] 1.2 {ratio} [facility] Serum or plasma anion gap de terminationOrdered By: Truong Concepcion on 05-21-2023 Anion gap [Moles/Vol] 5.3 mmol/L 6.0-15.0 [facility] Sodium [Moles/volume] in Ser um or PlasmaOrdered By: Truong Concepcion on 05-21-2023 Sodium [Moles/Vol] 134 mmol/L 136-145 [facility] Specific gravity Auto test s trip (U) [Rel density]Ordered By: Truong Concepcion on 05-21-2023 Specific gravity (U) [Rel density] 1.011 1.001-1.030 [facility] Troponin I High Sensitivityo n 05-21-2023 Troponin I High Sensitivity 3.0 pg/mL Normal 0.0-15.0 [facility] Comment on above: Result Comment: PERF ORMED BY: [place] [address] PATHOLOGIST SHEET LAYER OBI MORRIS M.D. Performed By: #### P T, LACTIC, CMP, HS TROP, BNP, MG, CK, PTT ####[facility] Troponin I.cardiac [Mass/vol ume] in Serum or Plasma by Detection limit <= 0.01 ng/Ordered By: Truong Concepcion on 05-21-2023 Troponin I.cardiac DL <= 0.01 ng/mL [Mass/Vol] 3.0 pg/mL 0.0-15.0 [facility] US venous duplex LE LTon US venous duplex LE LT [facility] [address] Ultrasound Report Signed Patient: Tracy Bennett MR#: [id number] 436 : 1995 Acct:[id number] Age/Sex: 28 / F ADM Date: 05/21/23 Loc: ER Room: Type: [facility] ER Attending Dr: Ordering Provider: Truong Concepcion DO Date of Service: 05/21/23 US/US venous duplex LE LT: eval dvt, edema, pain Copies to: Truong Concepcion DO LEFT LOWER EXTREMITY VENOUS DUPLEX INDICATION: Left leg edema, pain and tenderness. Unilateral left lower extremity venous duplex Doppler study was obtained utilizing B-mode, color- flow and spectral Doppler. FINDINGS: The left common femoral, femoral, and popliteal veins showed adequate compressibility, color-flow and augmentation. The left posterior tibial and peroneal veins were compressible, as well as proximal greater saphenous vein. The contralateral right common femoral vein was compressible with color-flow and augmentation. US/US venous duplex LE LT IMPRESSION: NO EVIDENCE OF DEEP VENOUS THROMBOSIS IN THE LEFT LOWER EXTREMITY. NO SUPERFICIAL THROMBOPHLEBITIS WAS NOTED. Impression dictated by: Aroldo Johnson MD05/21/2023 2:40 PM Dictation Location: [place] [address] Tech: Nuvia Muller Transcribed By: MIN 05/21/23 144 Dictated By: Aroldo Johnson MD 05/21/23 144 Signed By: 05/21/23 1440 Normal [facility] Urea nitrogen [Mass/volume] in Serum or PlasmaOrdered By: Truong Concepcion on 05-21-2023 Urea nitrogen [Mass/Vol] 8 mg/dL 7 [facility] Urine bacteria detection by automated methodOrdered By: Truong Concepcion on 05-21-2023 Bacteria Auto Ql (U) Rare None Seen [facility] Urine clarity by refractomet ry automatedOrdered By: Truong Concepcion on 05-21-2023 Clarity Refractometry automated (U) Cloudy Clear [facility] Urine glucose measurement by automated test strip (mass/volume)Ordered By: Truong Concepcion on 05-21-2023 Glucose Auto test strip (U) [Mass/Vol] Normal mg/dL Normal [facility] Urine hemoglobin detection b y automated test stripOrdered By: Truong Concepcion on 05-21-2023 Hemoglobin Auto test strip Ql (U) Negative Negative [facility] Urine leukocyte esterase det ection by automated test stripOrdered By: Truong Concepcion on 05-21-2023 Leukocyte esterase Auto test strip Ql (U) Negative Negative [facility] Urine pH measurement by auto mated test stripOrdered By: Truong Concepcion on 05-21-2023 pH (U) 6.0 [pH] Normal 5.0-9.0 [facility] Comment on above: Order Comment: Name Collection Type:: Clean-Voided Midstream Performed By: #### U HCG, ADDONUAPLUS ####[facility] [address] [place] [address] [facility] Urobilinogen Auto test strip (U) [Mass/Vol]Ordered By: Truong Concepcion on 05-21-2023 Urobilinogen (U) [Mass/Vol] Normal mg/dL Normal [facility] WBC Auto (Bld) [#/Vol]Ordere d By: Truong Concepcion on 05-21-2023 WBC (Bld) [#/Vol] 10.2 10*3/uL 3.8-11.6 [facility] XR foot LT min 3V*on 023 XR foot LT min 3V* [facility] [address] XRay Report Signed Patient: Tracy Bennett MR#: [id number] 436 : 1995 Acct:[id number] Age/Sex: 28 / F ADM Date: 05/21/23 Loc: ER Room: Type: [facility] ER Attending Dr: Copies to: Truong Concepcion DO Ordering Provider: Truong Concepcion DO Date of Service: 05/21/23 XR/XR chest 2V*: Skin/Abscess/Foreign Body ([id number]) XR/XR foot LT min 3V*: Skin/Abscess/Foreign Body ([id number]) XR/XR tibia fibula LT 2V*: Skin/Abscess/Foreign Body Plain film chest 2 view HISTORY: Fell yesterday. Left lower extremity swelling. COMPARISON: None FINDINGS: SUPPORT DEVICES: None POSTSURGICAL CHANGES: None HEART: Within normal limits PULMONARY EARLINE: Within normal limits MEDIASTINUM: Unremarkable LUNGS AND PLEURA: No acute lung process, pleural effusion or pneumothorax identified. BONY STRUCTURES: Intact ADDITIONAL FINDINGS None XR/XR chest 2V* IMPRESSION: No acute process. 2 views left lower leg no fracture or dislocation. Diffuse soft tissue swelling. IMPRESSION: No acute fracture. 3 views left foot Dorsal soft tissue swelling. No fracture or dislocation. IMPRESSION: No acute fracture. Impression dictated by: Eric Stewart M.D.05/21/2023 7:56 AM Dictation Location: [place] [address] Transcribed By: [facility] 05/21/23 075 Dictated By: Eric Stewart DO 05/21/23 0754 Signed By: 05/21/23 075 [facility] Basic Metabolic Panel w/ Ref aditya to MGon 04-27-2023 Anion gap [Moles/Vol] 12 mmol/L 9 - 17 mmol/L [facility] Calcium [Mass/Vol] 9.1 mg/dL 8.6 - 10. 4 mg/dL [facility] Chloride [Moles/Vol] 105 mmol/L 98 - 10 7 mmol/L [facility] CO2 [Moles/Vol] 21 mmol/L 20 - 31 mmol/L [facility] Creatinine [Mass/Vol] 0.8 mg/dL 0.5 - 0.9 mg/dL [facility] GFR/1.73 sq M.predicted MDRD (S/P/Bld) [Vol rate/Area] - PINF [facility] Comment on above: These results are not intended for use in patients <18 years of age. eGFR results are calculated without a race factor using the 2020 CKD-EPI equation. Careful clinical correlation is recommended, particularly when comparing to results calculated using previous equations. The CKD-EPI equation is less accurate in patients with extremes of muscle mass, extra-renal metabolism of creatine, excessive creatine ingestion, or following therapy that affects renal tubular secretion. Glucose [Mass/Vol] 100 mg/dL High 70 - 99 mg/dL [facility] Interpretation and review of laboratory results Abnormal [facility] Potassium [Moles/Vol] 3.6 mmol/L Low 3.7 - 5.3 mmol/L [facility] Sodium [Moles/Vol] 138 mmol/L 135 - 144 mmol/L [facility] Urea nitrogen [Mass/Vol] 9 mg/dL 6 - 20 mg/dL [facility] CBC with Auto Differentialon 04-27-2023 Basophils (Bld) [#/Vol] 0.05 10*3/uL [facility] Basophils/100 WBC (Bld) 0 % 0 - 2 % [facility] Eosinophils (Bld) [#/Vol] 0.22 10*3/uL [facility] Eosinophils/100 WBC (Bld) 2 % 1 - 4 % [facility] Erythrocyte distribution width (RBC) [Ratio] 12.6 % 11.8 - 14.4 % [facility] Hematocrit (Bld) [Volume fraction] 38.2 % 36.3 - 47.1 % [facility] Hemoglobin (Bld) [Mass/Vol] 12.8 g/dL 11.9 - 15.1 g/dL [facility] Immature granulocytes (Bld) [#/Vol] 0.07 10*3/uL [facility] Immature granulocytes/100 WBC (Bld) 1 % High [address] [facility] Interpretation and review of laboratory results Abnormal [facility] Lymphocytes/100 WBC (Bld) 30 % 24 - 43 % [facility] Lymphocytes/100 WBC (Bld) 3.57 % [facility] MCH (RBC) [Entitic mass] 30.2 pg 25.2 - 33.[address] [facility] MCHC (RBC) [Mass/Vol] 33.5 g/dL 28.4 - 34.8 g/dL [facility] MCV (RBC) [Entitic vol] 90.1 fL 82.6 - 102.9 fL [facility] Monocytes/100 WBC (Bld) 9 % 3 - 12 % [facility] Monocytes/100 WBC (Bld) 1.10 % [facility] Neutrophils/100 WBC (Bld) 58 % 36 - 65 % [facility] Nucleated RBC/100 WBC (Bld) [Ratio] 0.0 % 0.0 per [address] [facility] Platelet mean volume (Bld) [Entitic vol] 9.4 fL 8.1 - 13.[address] [facility] Platelets (Bld) [#/Vol] 405 10*3/uL [facility] RBC (Bld) [#/Vol] 4.24 10*6/uL 3.95 - 5.1 1 m/uL [facility] Segmented neutrophils/100 WBC (Bld) 6.73 % [facility] WBC other (Bld) [#/Vol] 11.7 High [facility] CKon 04-27-2023 CK [Catalytic activity/Vol] 2596 U/L High 26 - 192 U/L [facility] Interpretation and review of laboratory results Abnormal [facility] Culture, Blood 1on 3 Service comment (Unsp spec) [Interp] RT HAND [address] [facility] Culture, Blood 2on 3 Service comment (Unsp spec) [Interp] LEFT FA [address] [facility] Laboratoryon 04-27-2023 Microorganism identified Cx Nom (Unsp spec) NO GROWTH [address] [facility] No Panel Informationon 04-27 Specimen Description .BLOOD [facility] Basic Metabolic Panel w/ Ref aditya to MGon 04-26-2023 Anion gap [Moles/Vol] 14 mmol/L 9 - 17 mmol/L [facility] Calcium [Mass/Vol] 8.9 mg/dL 8.6 - 10. 4 mg/dL [facility] Chloride [Moles/Vol] 107 mmol/L 98 - 10 7 mmol/L [facility] CO2 [Moles/Vol] 20 mmol/L 20 - 31 mmol/L [facility] Creatinine [Mass/Vol] 1.0 mg/dL High 0.5 - 0.9 mg/dL [facility] GFR/1.73 sq M.predicted MDRD (S/P/Bld) [Vol rate/Area] - PINF [facility] Comment on above: These results are not intended for use in patients <18 years of age. eGFR results are calculated without a race factor using the 2020 CKD-EPI equation. Careful clinical correlation is recommended, particularly when comparing to results calculated using previous equations. The CKD-EPI equation is less accurate in patients with extremes of muscle mass, extra-renal metabolism of creatine, excessive creatine ingestion, or following therapy that affects renal tubular secretion. Glucose [Mass/Vol] 100 mg/dL High 70 - 99 mg/dL [facility] [facility] Interpretation and review of laboratory results Abnormal [facility] Potassium [Moles/Vol] 4.2 mmol/L 3.7 - 5.3 mmol/L [facility] Sodium [Moles/Vol] 141 mmol/L 135 - 144 mmol/L [facility] Urea nitrogen [Mass/Vol] 9 mg/dL 6 - 20 mg/dL [facility] CBC with Auto Differentialon 04-26-2023 Basophils (Bld) [#/Vol] 0.08 10*3/uL [facility] Basophils/100 WBC (Bld) 1 % 0 - 2 % [facility] Eosinophils (Bld) [#/Vol] 0.17 10*3/uL [facility] Eosinophils/100 WBC (Bld) 1 % 1 - 4 % [facility] Erythrocyte distribution width (RBC) [Ratio] 12.1 % 11.8 - 14.4 % [facility] Hematocrit (Bld) [Volume fraction] 38.0 % 36.3 - 47.1 % [facility] Hemoglobin (Bld) [Mass/Vol] 12.4 g/dL 11.9 - 15.1 g/dL [facility] Immature granulocytes (Bld) [#/Vol] 0.06 10*3/uL [facility] Immature granulocytes/100 WBC (Bld) 1 % High [address] [facility] Interpretation and review of laboratory results Abnormal [facility] Lymphocytes/100 WBC (Bld) 25 % 24 - 43 % [facility] Lymphocytes/100 WBC (Bld) 2.94 % [facility] MCH (RBC) [Entitic mass] 30.5 pg 25.2 - 33.[address] [facility] MCHC (RBC) [Mass/Vol] 32.6 g/dL 28.4 - 34.8 g/dL [facility] MCV (RBC) [Entitic vol] 93.6 fL 82.6 - 102.9 fL [facility] Monocytes/100 WBC (Bld) 9 % 3 - 12 % [facility] Monocytes/100 WBC (Bld) 1.11 % [facility] Neutrophils/100 WBC (Bld) 63 % 36 - 65 % [facility] Nucleated RBC/100 WBC (Bld) [Ratio] 0.0 % 0.0 per [address] [facility] Platelet mean volume (Bld) [Entitic vol] 9.1 fL 8.1 - 13.[address] [facility] Platelets (Bld) [#/Vol] 404 10*3/uL [facility] RBC (Bld) [#/Vol] 4.06 10*6/uL 3.95 - 5.1 1 m/uL [facility] Segmented neutrophils/100 WBC (Bld) 7.58 % [facility] WBC other (Bld) [#/Vol] 11.9 High [facility] CKon 04-26-2023 CK [Catalytic activity/Vol] 6033 U/L High 26 - 192 U/L [facility] Interpretation and review of laboratory results Abnormal [facility] Culture, Urineon 04-26-2023 Interpretation and review of laboratory results Abnormal [facility] Microorganism identified Cx Nom (Unsp spec) ESCHERICHIA COLI >100,000 CFU/ML Abnormal [facility] Specimen Description .CLEAN CATCH URINE [facility] HIV Screenon 04-26-2023 HIV 1+2 Ab+HIV1 p24 Ag IA Ql Non-Reactive NONREACTIVE [facility] Comment on above: No laboratory eviden ce of HIV infection. If acute HIV infection is suspected, consider testing for HIV-[address]. [facility] MRI TIBIA FIBULA LEFT WO CON TRASTon 04-26-2023 Diffuse nonspecific intramuscular edema throughout the leg, severe and greatest involving the medial head of the gastrocnemius. No discrete fluid collection. Etiologies include myositis, trauma, myopathies, rhabdomyolysis, in addition to vascular causes. Correlation with physical exam recommended, especially to exclude compartment syndrome and necrotizing fasciitis, which is based on clinical findings. The findings were sent to the Radiology Results Communication Center at 5:35 pm on 04/26/2023 to be communicated to a licensed caregiver. [facility] RIS CONSOLIDATED EXAMINATION: MRI OF THE LEFT TIBIA/FIBULA WITHOUT CONTRAST, 04/26/2023 3:07 pm TECHNIQUE: Multiplanar multisequence MRI of the left tibia/fibula was performed without the administration of intravenous contrast. COMPARISON: Same day MRI of the right tibia/fibula HISTORY: ORDERING SYSTEM PROVIDED HISTORY: Swelling pain TECHNOLOGIST PROVIDED HISTORY: Swelling pain Reason for Exam: Swelling pain FINDINGS: SOFT TISSUES: Diffuse intramuscular edema throughout the posterior compartment of the leg, severe and greatest involving the medial head of the gastrocnemius with perifascial edema throughout the entire leg. Mild edema throughout the anterior compartment in the proximal aspect of the leg. No discrete fluid collection. No definite gas formation. BONE MARROW: No evidence of fracture. Normal marrow signal. JOINTS: Visualized joint spaces demonstrate no significant joint effusions or appreciable osseous erosions. [facility] Lance Jackson DO - 04/26/2023 EXAMINATION: MRI OF THE LEFT TIBIA/FIBULA WITHOUT CONTRAST, 04/26/2023 3:07 pm TECHNIQUE: Multiplanar multisequence MRI of the left tibia/fibula was performed without the administration of intravenous contrast. COMPARISON: Same day MRI of the right tibia/fibula HISTORY: ORDERING SYSTEM PROVIDED HISTORY: Swelling pain TECHNOLOGIST PROVIDED HISTORY: Swelling pain Reason for Exam: Swelling pain FINDINGS: SOFT TISSUES: Diffuse intramuscular edema throughout the posterior compartment of the leg, severe and greatest involving the medial head of the gastrocnemius with perifascial edema throughout the entire leg. Mild edema throughout the anterior compartment in the proximal aspect of the leg. No discrete fluid collection. No definite gas formation. BONE MARROW: No evidence of fracture. Normal marrow signal. JOINTS: Visualized joint spaces demonstrate no significant joint effusions or appreciable osseous erosions. IMPRESSION: Diffuse nonspecific intramuscular edema throughout the leg, severe and greatest involving the medial head of the gastrocnemius. No discrete fluid collection. Etiologies include myositis, trauma, myopathies, rhabdomyolysis, in addition to vascular causes. Correlation with physical exam recommended, especially to exclude compartment syndrome and necrotizing fasciitis, which is based on clinical findings. The findings were sent to the Radiology Results Communication Center at 5:35 pm on 04/26/2023 to be communicated to a licensed caregiver. [facility] Rad[facility] Study observation (narrative) [facility] MRI TIBIA FIBULA LEFT WO CON TRASTOrdered By: Lance Jara on 04-26-2023 [facility] Work Phone: POC Glucose Fingerstickon Glucose [Mass/Vol] 133 mg/dL High 65 - 105 mg/dL [facility]Pr[facility] DigitalASHT[facility] Interpretation and review of laboratory results Abnormal [facility]ENTERDeliveryCheetah [facility] Glucose [Mass/Vol] 129 mg/dL High 65 - 105 mg/dL [facility] Interpretation and review of laboratory results Abnormal [facility] Glucose [Mass/Vol] 96 mg/dL 65 - 105 mg/dL [facility] Vascular duplex lower extrem ity venous bilateralon 04-26-2023 No evidence of deep or superficial vein thrombosis in the bilateral lower extremities. Right Lower Venous Unable to visualize the common femoral vein due to central line in the groin area. Limited visualization of the some of the vessels due to poor patient positioning. The superficial femoral, popliteal, posterior tibial, peroneal, great saphenous and small saphenous veins are compressible. The superficial femoral and popliteal veins have normal phasic and spontaneous flow. Left Lower Venous The common femoral, superficial femoral, popliteal, posterior tibial, great saphenous and small saphenous veins are compressible. The common femoral, superficial femoral and popliteal veins have normal phasic and spontaneous flow. Limited visualization of the calf veins due to swelling. Correctional Supervisor Lieutenant Details A neves scale, color Doppler imaging and spectral Doppler analysis ultrasound was performed. During the study longitudinal and transverse views were obtained. Overall the study quality was limited. Study was technically difficult due to: patient uncooperative, presence of lines and dressings, bedside exam, patient positioning and edema. [facility] CV CPACS Vascular duplex lower extrem ity venous bilateralOrdered By: Al Phan on 04-26-[address] [facility] Work Phone: Basic Metabolic Panel w/ Ref aditya to MGon 04-25-2023 Anion gap [Moles/Vol] 12 mmol/L 9 - 17 mmol/L [facility] Calcium [Mass/Vol] 8.6 mg/dL 8.6 - 10. 4 mg/dL [facility] Chloride [Moles/Vol] 107 mmol/L 98 - 10 7 mmol/L [facility] CO2 [Moles/Vol] 24 mmol/L 20 - 31 mmol/L [facility] Creatinine [Mass/Vol] 1.0 mg/dL High 0.5 - 0.9 mg/dL [facility] GFR/1.73 sq M.predicted MDRD (S/P/Bld) [Vol rate/Area] - PINF [facility] Comment on above: These results are not intended for use in patients <18 years of age. eGFR results are calculated without a race factor using the 2020 CKD-EPI equation. Careful clinical correlation is recommended, particularly when comparing to results calculated using previous equations. The CKD-EPI equation is less accurate in patients with extremes of muscle mass, extra-renal metabolism of creatine, excessive creatine ingestion, or following therapy that affects renal tubular secretion. Glucose [Mass/Vol] 94 mg/dL 70 - 99 mg/dL [facility] Interpretation and review of laboratory results Abnormal [facility] Potassium [Moles/Vol] 3.6 mmol/L Low 3.7 - 5.3 mmol/L [facility] Sodium [Moles/Vol] 143 mmol/L 135 - 144 mmol/L [facility] Urea nitrogen [Mass/Vol] 12 mg/dL 6 - 20 mg/dL [facility] CBC with Auto Differentialon 04-25-2023 Basophils (Bld) [#/Vol] 0.04 10*3/uL [facility] Basophils/100 WBC (Bld) 0 % 0 - 2 % [facility] Eosinophils (Bld) [#/Vol] 0.15 10*3/uL [facility] Eosinophils/100 WBC (Bld) 1 % 1 - 4 % [facility] Erythrocyte distribution width (RBC) [Ratio] 12.3 % 11.8 - 14.4 % [facility] Hematocrit (Bld) [Volume fraction] 34.4 % Low 36.3 - 47.1 % [facility] Hemoglobin (Bld) [Mass/Vol] 11.8 g/dL Low 11.9 - 15.1 g/dL [facility] Immature granulocytes (Bld) [#/Vol] 0.08 10*3/uL [facility] Immature granulocytes/100 WBC (Bld) 1 % High [address] [facility] Interpretation and review of laboratory results Abnormal [facility] Lymphocytes/100 WBC (Bld) 21 % Low 24 - 43 % [facility] Lymphocytes/100 WBC (Bld) 2.71 % [facility] MCH (RBC) [Entitic mass] 30.4 pg 25.2 - 33.5 pg [facility] MCHC (RBC) [Mass/Vol] 34.3 g/dL 28.4 - 34.8 g/dL [facility] MCV (RBC) [Entitic vol] 88.7 fL 82.6 - 102.9 fL [facility] Monocytes/100 WBC (Bld) 8 % 3 - 12 % [facility] Monocytes/100 WBC (Bld) 1.07 % [facility] Neutrophils/100 WBC (Bld) 69 % High 36 - 65 % [facility] Nucleated RBC/100 WBC (Bld) [Ratio] 0.0 % 0.0 per [address] [facility] Platelet mean volume (Bld) [Entitic vol] 10.0 fL 8.1 - 13.[address] [facility] Platelets (Bld) [#/Vol] 415 10*3/uL [facility] RBC (Bld) [#/Vol] 3.88 10*6/uL Low 3.95 - 5.1 1 m/uL [facility] Segmented neutrophils/100 WBC (Bld) 9.05 % High [facility] WBC other (Bld) [#/Vol] 13.1 High [facility] CKon 04-25-2023 CK [Catalytic activity/Vol] 99077 U/L High 26 - 192 U/L [facility] Interpretation and review of laboratory results Abnormal [facility] Potassiumon 04-25-2023 Interpretation and review of laboratory results Abnormal [facility] Potassium [Moles/Vol] 3.4 mmol/L Low 3.7 - 5.3 mmol/L [facility] Vascular duplex lower extrem ity venous bilateralon 04-25-2023 Radiology Study observation (narrative) [facility] Basic Metabolic Panel w/ Ref aditya to MGon 04-24-2023 Anion gap [Moles/Vol] 8 mmol/L Low 9 - 17 mmol/L [facility] Calcium [Mass/Vol] 8.5 mg/dL Low 8.6 - 10. 4 mg/dL [facility] Chloride [Moles/Vol] 107 mmol/L 98 - 10 7 mmol/L [facility] CO2 [Moles/Vol] 25 mmol/L 20 - 31 mmol/L [facility] Creatinine [Mass/Vol] 1.2 mg/dL High 0.5 - 0.9 mg/dL [facility] GFR/1.73 sq M.predicted MDRD (S/P/Bld) [Vol rate/Area] - PINF [facility] Comment on above: These results are not intended for use in patients <18 years of age. eGFR results are calculated without a race factor using the 2020 CKD-EPI equation. Careful clinical correlation is recommended, particularly when comparing to results calculated using previous equations. The CKD-EPI equation is less accurate in patients with extremes of muscle mass, extra-renal metabolism of creatine, excessive creatine ingestion, or following therapy that affects renal tubular secretion. Glucose [Mass/Vol] 140 mg/dL High 70 - 99 mg/dL [facility] Interpretation and review of laboratory results Abnormal [facility] Potassium [Moles/Vol] 3.5 mmol/L Low 3.7 - 5.3 mmol/L [facility] Sodium [Moles/Vol] 140 mmol/L 135 - 144 mmol/L [facility] Urea nitrogen [Mass/Vol] 14 mg/dL 6 - 20 mg/dL [facility] Anion gap [Moles/Vol] 9 mmol/L 9 - 17 mmol/L [facility] Calcium [Mass/Vol] 8.7 mg/dL 8.6 - 10. 4 mg/dL [facility] Chloride [Moles/Vol] 110 mmol/L High 98 - 10 7 mmol/L [facility] CO2 [Moles/Vol] 26 mmol/L 20 - 31 mmol/L [facility] Creatinine [Mass/Vol] 1.1 mg/dL High 0.5 - 0.9 mg/dL [facility] GFR/1.73 sq M.predicted MDRD (S/P/Bld) [Vol rate/Area] - PINF [facility] Comment on above: These results are not intended for use in patients <18 years of age. eGFR results are calculated without a race factor using the 2020 CKD-EPI equation. Careful clinical correlation is recommended, particularly when comparing to results calculated using previous equations. The CKD-EPI equation is less accurate in patients with extremes of muscle mass, extra-renal metabolism of creatine, excessive creatine ingestion, or following therapy that affects renal tubular secretion. Glucose [Mass/Vol] 106 mg/dL High 70 - 99 mg/dL [facility] Interpretation and review of laboratory results Abnormal [facility] Potassium [Moles/Vol] 3.6 mmol/L Low 3.7 - 5.3 mmol/L [facility] Sodium [Moles/Vol] 145 mmol/L High 135 - 144 mmol/L [facility] Urea nitrogen [Mass/Vol] 17 mg/dL 6 - 20 mg/dL [facility] CBC with Auto Differentialon 04-24-2023 Basophils (Bld) [#/Vol] 0.04 10*3/uL [facility] Basophils/100 WBC (Bld) 0 % 0 - 2 % [facility] Eosinophils (Bld) [#/Vol] 0.23 10*3/uL [facility] Eosinophils/100 WBC (Bld) 2 % 1 - 4 % [facility] Erythrocyte distribution width (RBC) [Ratio] 12.3 % 11.8 - 14.4 % [facility] Hematocrit (Bld) [Volume fraction] 32.7 % Low 36.3 - 47.1 % [facility] Hemoglobin (Bld) [Mass/Vol] 11.1 g/dL Low 11.9 - 15.1 g/dL [facility] Immature granulocytes (Bld) [#/Vol] 0.05 10*3/uL [facility] Immature granulocytes/100 WBC (Bld) 0 % [address] [facility] Interpretation and review of laboratory results Abnormal [facility] Lymphocytes/100 WBC (Bld) 25 % 24 - 43 % [facility] Lymphocytes/100 WBC (Bld) 2.81 % [facility] MCH (RBC) [Entitic mass] 30.7 pg 25.2 - 33.[address] [facility] MCHC (RBC) [Mass/Vol] 33.9 g/dL 28.4 - 34.8 g/dL [facility] MCV (RBC) [Entitic vol] 90.3 fL 82.6 - 102.9 fL [facility] Monocytes/100 WBC (Bld) 9 % 3 - 12 % [facility] Monocytes/100 WBC (Bld) 1.05 % [facility] Neutrophils/100 WBC (Bld) 64 % 36 - 65 % [facility] Nucleated RBC/100 WBC (Bld) [Ratio] 0.0 % 0.0 per [address] [facility] Platelet mean volume (Bld) [Entitic vol] 9.4 fL 8.1 - 13.[address] [facility] Platelets (Bld) [#/Vol] 358 10*3/uL [facility] RBC (Bld) [#/Vol] 3.62 10*6/uL Low 3.95 - 5.1 1 m/uL [facility] Segmented neutrophils/100 WBC (Bld) 7.24 % [facility] WBC other (Bld) [#/Vol] 11.4 High [facility] CKon 04-24-2023 CK [Catalytic activity/Vol] 24582 U/L High 26 - 192 U/L [facility] Interpretation and review of laboratory results Abnormal [facility] Drugs of abuse 9 serum w/ re flexon 04-24-2023 Amphetamine Negative Cutoff 20 ng/mL [facility] Barbiturates Negative Cutoff 50 ng/mL [facility] Benzodiazepines Ql (U) Negative Cutoff 50 ng/mL [facility] Buprenorphine Negative Cutoff 1 ng/mL [facility] Cocaine Ql (U) Negative Cutoff 20 ng/mL [facility] Drugs of Abuse Comment See Note [facility] Comment on above: (NOTE) INTERPRETIVE INFORMATION: Drug Screen 9 Panel, Serum or Plasma - Immunoassay Screen with Reflex to Mass Spectrometry Confirmation/Quantitation 1. Methodology: Qualitative Immunoassay Screen 2. Drugs/Drug classes reported as Positive are automatically reflexed to mass spectrometry confirmation/quantitation testing. An immunoassay unconfirmed positive screen result may be useful for medical purposes but does not meet forensic standards. 3. The absence of expected drug(s) and/or drug metabolite(s) may indicate noncompliance, inappropriate timing of specimen collection relative to drug administration, poor drug absorption, or limitations of testing. The concentration at which the screening test can detect a drug or metabolite varies within a drug class. Specimens for which drugs or drug classes are detected by the screen are automatically reflexed to a second, more specific technology (mass spectrometry). The concentration value must be greater than or equal to the cutoff to be reported as positive. Interpretive questions should be directed to the laboratory. 4. For medical purposes only; not valid for forensic use. This test was developed and its performance characteristics determined by [employer]. It has not been cleared or approved by the [place] Food and Drug Administration. This test was performed in a CLIA certified laboratory and is intended for clinical purposes. Performed By: [employer] [address] [place], [place] [id number] Nipple Threader: Canelo Croft MD, PhD CLIA Number: [id number] Methadone Ql (U) Negative Cutoff 25 ng/mL [facility] DigitalASHT[facility] Methamphetamine Negative Cutoff 20 ng/mL [facility] Opiates Ql (U) Negative Cutoff 20 ng/mL [facility]ENTERDelivery[facility] Oxycodone Negative Cutoff 20 ng/mL [facility] Phencyclidine Ql (U) Negative Cutoff 10 ng/mL [facility]ENTER[facility]AS[facility] THC Negative Cutoff 20 ng/mL [facility] Hepatic Function Panelon Albumin [Mass/Vol] 3.2 g/dL Low 3.5 - 5.2 g/dL [facility] Albumin/Globulin [Mass ratio] 1.2 {ratio} 1.0 - 2.5 [facility]HT[facility] ALP [Catalytic activity/Vol] 78 U/L 35 - 104 U/L [facility] ALT [Catalytic activity/Vol] 820 U/L High 5 - 33 U/L [facility]AS[facility] AST [Catalytic activity/Vol] 580 U/L High NINF - 32 U/L [facility] Bilirubin [Mass/Vol] 0.8 mg/dL 0.3 - 1 .2 mg/dL [facility] Bilirubin.direct [Mass/Vol] 0.4 mg/dL High NINF - 0.3 mg/dL [facility] Bilirubin.indirect [Mass/Vol] 0.4 mg/dL 0.0 - 1.0 mg/dL [facility] Interpretation and review of laboratory results Abnormal [facility] Protein [Mass/Vol] 5.9 g/dL Low 6.4 - 8.3 g/dL [facility] Hepatitis Panel, Acuteon HAV IgM IA Ql Non-Reactive NONREACTIVE [facility] HBV core IgM IA Ql Non-Reactive NONREACTIVE [facility] HBV surface Ag IA Ql Non-Reactive [facility]ACTIVE [facility] HCV Ab IA Ql Reactive Abnormal NONREACTIVE [facility] Comment on above: The hepatitis C procedure used in our laboratory is a Chemiluminescent test specific for three recombinant HCV antigens. A negative anti-HCV result indicates that the antibodies to hepatitis C virus are not present at this time. Individuals with reactive anti-HCV should be considered infected and infectious until proven otherwise. Confirmation of all equivocal or reactive results is recommended by ordering HCV RNA by PCR. Results reported to the appropriate Health Department Interpretation and review of laboratory results Abnormal [facility] Magnesiumon 04-24-2023 Interpretation and review of laboratory results Abnormal [facility] Magnesium [Mass/Vol] 2.7 mg/dL High 1.6 - 2 .6 mg/dL [facility] Microscopic Urinalysison Bacteria LM Ql (Urine sed) MANY Abnormal None [facility] Casts LM.LPF (Urine sed) [#/Area] 10 TO 20 HYALINE Reference range defined for non-centrifuged specimen. [facility] Epithelial cells LM.HPF (Urine sed) [#/Area] 10 TO [address] [facility] Interpretation and review of laboratory results Abnormal [facility] RBC LM.HPF (Urine sed) [#/Area] 5 TO [address] [facility] Comment on above: Reference range defi flavia for non-centrifuged specimen. WBC LM.HPF (Urine sed) [#/Area] TOO NUMEROUS TO COUNT [facility] POC Glucose Fingerstickon Glucose [Mass/Vol] 110 mg/dL High 65 - 105 mg/dL [facility] Interpretation and review of laboratory results Abnormal [facility] Glucose [Mass/Vol] 112 mg/dL High 65 - 105 mg/dL [facility] Interpretation and review of laboratory results Abnormal [facility] Glucose [Mass/Vol] 114 mg/dL High 65 - 105 mg/dL [facility] Interpretation and review of laboratory results Abnormal [facility] Glucose [Mass/Vol] 112 mg/dL High 65 - 105 mg/dL [facility] Interpretation and review of laboratory results Abnormal [facility] TSH with Reflexon 04-24-2023 TSH Qn 1.12 m[IU]/L [facility] Urinalysis with Reflex to Cu ltureon 04-24-2023 Bilirubin Ql (U) Negative NEGATIVE [facility] Clarity (U) Turbid Abnormal Clear [facility] Color (U) Yellow Yellow [facility] Glucose Test strip (U) [Mass/Vol] Negative NEGATIVE mg/dL [facility] Hemoglobin Auto test strip Ql (U) LARGE Abnormal NEGATIVE [facility] Interpretation and review of laboratory results Abnormal [facility] Ketones (U) [Mass/Vol] Negative NEGATIVE mg/dL [facility] Leukocyte esterase Test strip Ql (U) LARGE Abnormal NEGATIVE [facility] Nitrite Ql (U) Positive Abnormal NEGATIVE [facility] pH (U) 7.0 [pH] 5.0 - 8.[address] [facility] Protein (U) [Mass/Vol] 1+ Abnormal NEGATIVE mg/dL [facility] Specific gravity (U) [Rel density] 1.015 1.005 - 1.[address] [facility] Urobilinogen Qn (U) ELEVATED 0.0 - 1. 0 EU/dL [facility] APTTon 04-23-2023 aPTT Coag (Bld) [Time] 26.[address] [facility] Comment on above: IV Heparin Therapy Range: 66.0-92.0 sec Ammoniaon 04-23-2023 Ammonia (P) [Moles/Vol] 41 umol/L 11 - 51 umol/L [facility] Basic Metabolic Panel w/ Ref aditya to MGon 04-23-2023 Anion gap [Moles/Vol] 12 mmol/L 9 - 17 mmol/L [facility] Calcium [Mass/Vol] 8.6 mg/dL 8.6 - 10. 4 mg/dL [facility] Chloride [Moles/Vol] 120 mmol/L High 98 - 10 7 mmol/L [facility] CO2 [Moles/Vol] 24 mmol/L 20 - 31 mmol/L [facility] Creatinine [Mass/Vol] 1.2 mg/dL High 0.5 - 0.9 mg/dL [facility] GFR/1.73 sq M.predicted MDRD (S/P/Bld) [Vol rate/Area] - PINF [facility] Comment on above: These results are not intended for use in patients <18 years of age. eGFR results are calculated without a race factor using the 2020 CKD-EPI equation. Careful clinical correlation is recommended, particularly when comparing to results calculated using previous equations. The CKD-EPI equation is less accurate in patients with extremes of muscle mass, extra-renal metabolism of creatine, excessive creatine ingestion, or following therapy that affects renal tubular secretion. Glucose [Mass/Vol] 111 mg/dL High 70 - 99 mg/dL [facility] Interpretation and review of laboratory results Abnormal [facility] Potassium [Moles/Vol] 5.5 mmol/L High 3.7 - 5.3 mmol/L [facility] Sodium [Moles/Vol] 156 mmol/L High 135 - 144 mmol/L [facility] Urea nitrogen [Mass/Vol] 19 mg/dL 6 - 20 mg/dL [facility] CBC with Auto Differentialon 04-23-2023 Basophils (Bld) [#/Vol] 0.06 10*3/uL [facility] Basophils/100 WBC (Bld) 1 % 0 - 2 % [facility] Eosinophils (Bld) [#/Vol] 0.14 10*3/uL [facility] Eosinophils/100 WBC (Bld) 1 % 1 - 4 % [facility] Erythrocyte distribution width (RBC) [Ratio] 12.4 % 11.8 - 14.4 % [facility] Hematocrit (Bld) [Volume fraction] 36.7 % 36.3 - 47.1 % [facility] Hemoglobin (Bld) [Mass/Vol] 12.0 g/dL 11.9 - 15.1 g/dL [facility] Immature granulocytes (Bld) [#/Vol] 0.04 10*3/uL [facility] Immature granulocytes/100 WBC (Bld) 0 % [address] [facility] Interpretation and review of laboratory results Abnormal [facility] Lymphocytes/100 WBC (Bld) 20 % Low 24 - 43 % [facility] Lymphocytes/100 WBC (Bld) 2.35 % [facility] MCH (RBC) [Entitic mass] 30.2 pg 25.2 - 33.[address] [facility] MCHC (RBC) [Mass/Vol] 32.7 g/dL 28.4 - 34.8 g/dL [facility] MCV (RBC) [Entitic vol] 92.2 fL 82.6 - 102.9 fL [facility] Monocytes/100 WBC (Bld) 7 % 3 - 12 % [facility] Monocytes/100 WBC (Bld) 0.89 % [facility] Neutrophils/100 WBC (Bld) 71 % High 36 - 65 % [facility] Nucleated RBC/100 WBC (Bld) [Ratio] 0.0 % 0.0 per [address] [facility] Platelet mean volume (Bld) [Entitic vol] 9.1 fL 8.1 - 13.[address] [facility] Platelets (Bld) [#/Vol] 374 10*3/uL [facility] RBC (Bld) [#/Vol] 3.98 10*6/uL 3.95 - 5.1 1 m/uL [facility] Segmented neutrophils/100 WBC (Bld) 8.59 % High [facility] WBC other (Bld) [#/Vol] 12.1 High [facility] CKon 04-23-2023 CK [Catalytic activity/Vol] 99325 U/L High 26 - 192 U/L [facility] Interpretation and review of laboratory results Abnormal [facility] Comprehensive Metabolic Pane l w/ Reflex to MGon 04-23-2023 Albumin [Mass/Vol] 3.3 g/dL Low 3.5 - 5.2 g/dL [facility] Albumin/Globulin [Mass ratio] 1.2 {ratio} 1.0 - 2.[address] [facility] ALP [Catalytic activity/Vol] 78 U/L 35 - 104 U/L [facility] ALT [Catalytic activity/Vol] 1179 U/L High 5 - 33 U/L [facility] Anion gap [Moles/Vol] 9 mmol/L 9 - 17 mmol/L [facility] AST [Catalytic activity/Vol] 615 U/L High NINF - 32 U/L [facility] Bilirubin [Mass/Vol] 0.9 mg/dL 0.3 - 1 .2 mg/dL [facility] Calcium [Mass/Vol] 8.8 mg/dL 8.6 - 10. 4 mg/dL [facility] Chloride [Moles/Vol] 114 mmol/L High 98 - 10 7 mmol/L [facility] CO2 [Moles/Vol] 24 mmol/L 20 - 31 mmol/L [facility] Creatinine [Mass/Vol] 1.3 mg/dL High 0.5 - 0.9 mg/dL [facility] GFR/1.73 sq M.predicted MDRD (S/P/Bld) [Vol rate/Area] 57 mL/min/{1.73_m2} Low - PINF [facility] Comment on above: These results are not intended for use in patients <18 years of age. eGFR results are calculated without a race factor using the 2020 CKD-EPI equation. Careful clinical correlation is recommended, particularly when comparing to results calculated using previous equations. The CKD-EPI equation is less accurate in patients with extremes of muscle mass, extra-renal metabolism of creatine, excessive creatine ingestion, or following therapy that affects renal tubular secretion. Glucose [Mass/Vol] 99 mg/dL 70 - 99 mg/dL [facility] Interpretation and review of laboratory results Abnormal [facility] Potassium [Moles/Vol] 4.1 mmol/L 3.7 - 5.3 mmol/L [facility] Protein [Mass/Vol] 6.0 g/dL Low 6.4 - 8.3 g/dL [facility] Sodium [Moles/Vol] 147 mmol/L High 135 - 144 mmol/L [facility] Urea nitrogen [Mass/Vol] 21 mg/dL High 6 - 20 mg/dL [facility] No Panel Informationon 04-[address] [facility] POC Glucose Fingerstickon Glucose [Mass/Vol] 111 mg/dL High 65 - 105 mg/dL [facility] Interpretation and review of laboratory results Abnormal [facility] Glucose [Mass/Vol] 115 mg/dL High 65 - 105 mg/dL [facility] Interpretation and review of laboratory results Abnormal [facility] Protime-INRon 04-23-2023 INR Coag (PPP) [Relative time] 1.5 {INR} [facility] Comment on above: Therapeutic Range: Moderate Anticoagulant Intensity: INR = 2.0-3.0 High Anticoagulant Intensity: INR = 2.5-3.5 Interpretation and review of laboratory results Abnormal [facility] PT Coag (PPP) [Time] 17.8 s High [facility] US GALLBLADDER RUQon 04-23-2 023 1. Cholelithiasis bu t no evidence of thickening of the gallbladder wall. Negative Teague sign. 2. Normal liver and biliary system. [facility] RIS CONSOLIDATED EXAMINATION: RIGHT UPPER QUADRANT ULTRASOUND 04/22/2023 5:00 pm COMPARISON: None. HISTORY: ORDERING SYSTEM PROVIDED HISTORY: transaminitis TECHNOLOGIST PROVIDED HISTORY: transaminitis FINDINGS: LIVER: The liver demonstrates normal echogenicity without evidence of intrahepatic biliary ductal dilatation. There is hepatopetal flow of the portal vein which is in the normal direction. No evidence of hepatomegaly. BILIARY SYSTEM: Cholelithiasis. No evidence of wall thickening. Negative Teague sign. Common bile duct is within normal limits measuring 0.46 cm. RIGHT KIDNEY: The right kidney is grossly unremarkable without evidence of hydronephrosis. PANCREAS: Visualized portions of the pancreas are unremarkable. OTHER: No evidence of right upper quadrant ascites. [facility] RIS Chela Kim MD - 04/23/2023 EXAMINATION: RIGHT UPPER QUADRANT ULTRASOUND 04/22/2023 5:00 pm COMPARISON: None. HISTORY: ORDERING SYSTEM PROVIDED HISTORY: transaminitis TECHNOLOGIST PROVIDED HISTORY: transaminitis FINDINGS: LIVER: The liver demonstrates normal echogenicity without evidence of intrahepatic biliary ductal dilatation. There is hepatopetal flow of the portal vein which is in the normal direction. No evidence of hepatomegaly. BILIARY SYSTEM: Cholelithiasis. No evidence of wall thickening. Negative Teague sign. Common bile duct is within normal limits measuring 0.46 cm. RIGHT KIDNEY: The right kidney is grossly unremarkable without evidence of hydronephrosis. PANCREAS: Visualized portions of the pancreas are unremarkable. OTHER: No evidence of right upper quadrant ascites. IMPRESSION: 1. Cholelithiasis but no evidence of thickening of the gallbladder wall. Negative Teague sign. 2. Normal liver and biliary system. [facility] GALLBLADDER RUQOrdered By : Chela Sagastume on 04-23-2023 [facility] [employer] Work Phone: Arterial Blood Gas, POCon Brian Test Positive [facility] [employer] HCO3 (Bld) [Moles/Vol] 26.3 mmol/L 21.0 - 28.0 mmol/L [facility] [employer] Oxygen saturation in Blood 94.0 % 94.0 - 98.0 % [facility] POC pCO2 33.[address] [facility] POC pCO2 Temp 35.[address] mm [address] [facility] POC pH 7.503 High 7.350 - 7.[address] [facility] POC pH Temp 7.[address] [facility] POC PO2 63.[address] [facility] POC pO2 Temp 67.[address] [facility] Positive Base Excess, Art 3.5 mmol/L High 0.0 - 3.0 mmol/L [facility] Pt Temp 38.[address] [facility] Sample Site Right Radial Artery [facility] Basic Metabolic Panelon 03-26 Anion gap [Moles/Vol] 12 mmol/L 9 - 17 mmol/L [facility] Calcium [Mass/Vol] 8.1 mg/dL Low 8.6 - 10. 4 mg/dL [facility] Chloride [Moles/Vol] 108 mmol/L High 98 - 10 7 mmol/L [facility] CO2 [Moles/Vol] 24 mmol/L 20 - 31 mmol/L [facility] Creatinine [Mass/Vol] 1.4 mg/dL High 0.5 - 0.9 mg/dL [facility] GFR/1.73 sq M.predicted MDRD (S/P/Bld) [Vol rate/Area] 52 mL/min/{1.73_m2} Low - PINF [facility] Comment on above: These results are not intended for use in patients <18 years of age. eGFR results are calculated without a race factor using the 2020 CKD-EPI equation. Careful clinical correlation is recommended, particularly when comparing to results calculated using previous equations. The CKD-EPI equation is less accurate in patients with extremes of muscle mass, extra-renal metabolism of creatine, excessive creatine ingestion, or following therapy that affects renal tubular secretion. Glucose [Mass/Vol] 105 mg/dL High 70 - 99 mg/dL [facility] Interpretation and review of laboratory results Abnormal [facility] Potassium [Moles/Vol] 3.5 mmol/L Low 3.7 - 5.3 mmol/L [facility] Sodium [Moles/Vol] 144 mmol/L 135 - 144 mmol/L [facility] Urea nitrogen [Mass/Vol] 23 mg/dL High 6 - 20 mg/dL [facility] Basic Metabolic Panel w/ Ref aditya to MGon 04-22-2023 Anion gap [Moles/Vol] 10 mmol/L 9 - 17 mmol/L [facility] Calcium [Mass/Vol] 8.2 mg/dL Low 8.6 - 10. 4 mg/dL [facility] Chloride [Moles/Vol] 112 mmol/L High 98 - 10 7 mmol/L [facility] CO2 [Moles/Vol] 23 mmol/L 20 - 31 mmol/L [facility] Creatinine [Mass/Vol] 1.3 mg/dL High 0.5 - 0.9 mg/dL [facility] GFR/1.73 sq M.predicted MDRD (S/P/Bld) [Vol rate/Area] 57 mL/min/{1.73_m2} Low - PINF [facility] Comment on above: These results are not intended for use in patients <18 years of age. eGFR results are calculated without a race factor using the 2020 CKD-EPI equation. Careful clinical correlation is recommended, particularly when comparing to results calculated using previous equations. The CKD-EPI equation is less accurate in patients with extremes of muscle mass, extra-renal metabolism of creatine, excessive creatine ingestion, or following therapy that affects renal tubular secretion. Glucose [Mass/Vol] 117 mg/dL High 70 - 99 mg/dL [facility] Interpretation and review of laboratory results Abnormal [facility] Potassium [Moles/Vol] 4.1 mmol/L 3.7 - 5.3 mmol/L [facility] Sodium [Moles/Vol] 145 mmol/L High 135 - 144 mmol/L [facility] Urea nitrogen [Mass/Vol] 21 mg/dL High 6 - 20 mg/dL [facility] Anion gap [Moles/Vol] 12 mmol/L 9 - 17 mmol/L [facility] Calcium [Mass/Vol] 8.1 mg/dL Low 8.6 - 10. 4 mg/dL [facility] Chloride [Moles/Vol] 108 mmol/L High 98 - 10 7 mmol/L [facility] CO2 [Moles/Vol] 26 mmol/L 20 - 31 mmol/L [facility] Creatinine [Mass/Vol] 1.5 mg/dL High 0.5 - 0.9 mg/dL [facility] GFR/1.73 sq M.predicted MDRD (S/P/Bld) [Vol rate/Area] 48 mL/min/{1.73_m2} Low - PINF [facility] Comment on above: These results are not intended for use in patients <18 years of age. eGFR results are calculated without a race factor using the 2020 CKD-EPI equation. Careful clinical correlation is recommended, particularly when comparing to results calculated using previous equations. The CKD-EPI equation is less accurate in patients with extremes of muscle mass, extra-renal metabolism of creatine, excessive creatine ingestion, or following therapy that affects renal tubular secretion. Glucose [Mass/Vol] 91 mg/dL 70 - 99 mg/dL [facility] Interpretation and review of laboratory results Abnormal [facility] Potassium [Moles/Vol] 3.4 mmol/L Low 3.7 - 5.3 mmol/L [facility] Sodium [Moles/Vol] 146 mmol/L High 135 - 144 mmol/L [facility] Urea nitrogen [Mass/Vol] 26 mg/dL High 6 - 20 mg/dL [facility] CALCIUM, IONIC (POC)on 04-22 Calcium.ionized (Bld) [Moles/Vol] 1.10 mmol/L Low 1.15 - 1.33 mmol/L [facility] CBC with Auto Differentialon 04-22-2023 Basophils (Bld) [#/Vol] 0.00 10*3/uL [facility] Basophils/100 WBC (Bld) 0 % 0 - 2 % [facility] Eosinophils (Bld) [#/Vol] 0.00 10*3/uL [facility] Eosinophils/100 WBC (Bld) 0 % Low 1 - 4 % [facility] Erythrocyte distribution width (RBC) [Ratio] 12.4 % 11.8 - 14.4 % [facility] Hematocrit (Bld) [Volume fraction] 37.8 % 36.3 - 47.1 % [facility] Hemoglobin (Bld) [Mass/Vol] 13.0 g/dL 11.9 - 15.1 g/dL [facility] Immature granulocytes (Bld) [#/Vol] 0.00 10*3/uL [facility] Immature granulocytes/100 WBC (Bld) 0 % [address] [facility] Interpretation and review of laboratory results Abnormal [facility] Lymphocytes/100 WBC (Bld) 15 % Low 24 - 44 % [facility] Lymphocytes/100 WBC (Bld) 3.03 % [facility] MCH (RBC) [Entitic mass] 31.1 pg 25.2 - 33.[address] [facility] MCHC (RBC) [Mass/Vol] 34.4 g/dL 28.4 - 34.8 g/dL [facility] MCV (RBC) [Entitic vol] 90.4 fL 82.6 - 102.9 fL [facility] Monocytes/100 WBC (Bld) 3 % 1 - 7 % [facility] Monocytes/100 WBC (Bld) 0.61 % [facility] Morphology Jad (Bld) [Interp] Normal [facility] Neutrophils/100 WBC (Bld) 82 % High 36 - 66 % [facility] Nucleated RBC/100 WBC (Bld) [Ratio] 0.0 % 0.0 per [address] [facility] Platelet mean volume (Bld) [Entitic vol] 9.5 fL 8.1 - 13.[address] [facility] Platelets (Bld) [#/Vol] 441 10*3/uL [facility] RBC (Bld) [#/Vol] 4.18 10*6/uL 3.95 - 5.1 1 m/uL [facility] Segmented neutrophils/100 WBC (Bld) 16.56 % High [facility] WBC other (Bld) [#/Vol] 20.2 High [facility] CKon 04-22-2023 CK [Catalytic activity/Vol] 17326 U/L High 26 - 192 U/L [facility] Interpretation and review of laboratory results Abnormal [facility] Creatinine W/GFR Point of Ca reon 04-22-2023 Creatinine [Mass/Vol] 1.5 mg/dL High 0.51 - 1.19 mg/dL [facility] eGFR, POC 48 mL/min/1.73m [address] [facility] Comment on above: These results are not intended for use in patients <18 years of age. eGFR results are calculated without a race factor using the 2020 CKD-EPI equation. Careful clinical correlation is recommended, particularly when comparing to results calculated using previous equations. The CKD-EPI equation is less accurate in patients with extremes of muscle mass, extra-renal metabolism of creatine, excessive creatine ingestion, or following therapy that affects renal tubular secretion. DRUG SCREEN MULTI URINEon Amphetamines Ql (U) Positive Abnormal NEGATIVE [employer] [facility] Comment on above: (Positive cutoff 1000 ng/mL) Barbiturates Screen Ql (U) Negative NEGATIVE [facility] Comment on above: (Positive cutoff 200 ng/mL) Benzodiazepines Ql (U) Negative NEGATIVE [facility] Comment on above: (Positive cutoff 200 ng/mL) Cannabinoids Screen Ql (U) Negative NEGATIVE [facility] Comment on above: (Positive cutoff 50 ng/mL) Cocaine Ql (U) Negative NEGATIVE [facility] Comment on above: (Positive cutoff 300 ng/mL) fentaNYL Ql (U) Positive Abnormal NEGATIVE [facility] Comment on above: (Positive cutoff 5 ng/ml) Interpretation and review of laboratory results Abnormal [facility] Methadone Ql (U) Negative NEGATIVE [facility] Comment on above: (Positive cutoff 300 ng/mL) Opiates Screen Ql (U) Negative NEGATIVE [facility] Comment on above: (Positive cutoff 300 ng/mL) oxyCODONE Ql (U) Negative NEGATIVE [facility] Comment on above: (Positive cutoff 100 ng/mL) Phencyclidine Ql (U) Negative NEGATIVE [facility] Comment on above: (Positive cutoff 25 ng/mL) Test Information Assay provides medic al screening only. The absence of expected drug(s) and/or metabolite(s) may indicate diluted or adulterated urine, limitations of testing or timing of collection. [employer] Comment on above: Testing for legal pu rposes should be confirmed by another method. To request confirmation of test result, please call the lab within 7 days of sample submission. [employer] EKG 12 LeadOrdered By: Quinn Carrasco on 04-22-2023 Atrial Rate 115 BPM [employer] Work Phone: P [place] 56 degrees [employer] Work Phone: P-R Interval 132 ms [employer] Work Phone: Q-T Interval 382 ms [employer] Work Phone: QRS Duration 78 ms BON [employer] Work Phone: QTc Calculation (Bazett) 528 ms [employer] Work Phone: R [place] 54 degrees CINDY [employer] Work Phone: T [place] 60 degrees [employer] Work Phone: Ventricular Rate 115 BPM [facility] Work Phone: CINDY Corrig[employer] Work Phone: EKG 12 Leadon 04-22-[address] and T wave abnormality Prolonged QT Abnormal ECG When compared with ECG of 22-APR-2023 02:12, Fusion complexes are no longer Present [facility] Dale Ron MD - 04/22/[address] and T wave abnormality Prolonged QT Abnormal ECG When compared with ECG of 22-APR-2023 02:12, Fusion complexes are no longer Present [facility] Corrigo ELECTROLYTES PLUSon 04-22-20 Anion gap [Moles/Vol] 8 mmol/L 7 - 16 mmol/L [facility] [employer] Chloride [Moles/Vol] 110 mmol/L High 98 - 10 7 mmol/L [facility] CO2 Calc (Bld) [Moles/Vol] 28 mmol/L 22 - 30 mmol/L [facility] [employer] Potassium [Moles/Vol] 3.1 mmol/L Low 3.5 - 4.5 mmol/L [employer] Sodium [Moles/Vol] 145 mmol/L 138 - 146 mmol/L [facility] Hemoglobin and hematocrit, b loodon 04-22-2023 Hematocrit (Bld) [Volume fraction] 39 % 36 - 46 % [employer] Hemoglobin (Bld) [Mass/Vol] 13.2 g/dL 12.0 - 16.0 g/dL [facility] [employer] Lactic Acidon 04-22-2023 Lactic Acid, Whole Blood 1.5 mmol/L 0.7 - 2.1 mmol/L [facility] Lactic Acid, Whole Blood 1.3 mmol/L 0.7 - 2.1 mmol/L [facility] Lactic Acid, POCon POC Lactic Acid 1.8 mmol/L High 0.56 - 1.39 mmol/L [facility] POC Lactic Acid 1.4 mmol/L High 0.56 - 1.39 mmol/L [facility] MRSA DNA Probe, Nasalon 03-26 Interpretation and review of laboratory results Abnormal [facility] MRSA, DNA, Nasal POSITIVE: MRSA DNA detected by nucleic acid amplification. Abnormal NEGATIVE [facility] Comment on above: Results should be used as an adjunct to nosocomial control efforts to identify patients needing enhanced precautions. The test is not intended to identify patients with staphylococcal infections. Results should not be used to guide or monitor treatment for MRSA infections. Specimen Description .NASAL SWAB [facility] Magnesiumon 04-22-2023 Magnesium [Mass/Vol] 2.4 mg/dL 1.6 - 2 .6 mg/dL [facility] Mixed Venous Gas, POCon 03-26 Brian Test Positive [facility] HCO3 (Bld) [Moles/Vol] 28.1 mmol/L 23.0 - 29.0 mmol/L [facility] Oxygen saturation in Blood 86.1 % High 60.0 - 80.0 % [facility] PCO2, Mixed 34.[address] [facility] PH MIXED 7.524 High 7.310 - 7.[address] [facility] PO2, Mixed 45.[address] [facility] POC pCO2 Temp 35.[address] [facility] POC pH Temp 7.[address] [facility] POC pO2 Temp 47.[address] [facility] Positive Base Excess, Mixed 5.4 mmol/L High 0.0 - 3.0 mmol/L [facility] Pt Temp 37.7 [facility] Sample Site Left Radial Artery [facility] Myoglobin, Bloodon Interpretation and review of laboratory results Abnormal [facility] Myoglobin [Mass/Vol] 3819 ng/mL High 25 - 58 ng/mL [facility] No Panel Informationon 04-22 Interpretation and review of laboratory results Abnormal [facility] Interpretation and review of laboratory results Abnormal [facility] Radiology Study observation (narrative) [facility] POCT Glucoseon 04-22-2023 Glucose [Mass/Vol] 103 mg/dL High 74 - 100 mg/dL [facility] Glucose [Mass/Vol] 92 mg/dL 74 - 100 mg/dL [facility] POCT urea (BUN)on 04-22-2023 Urea nitrogen [Mass/Vol] 24 mg/dL 8 - 26 mg/dL [facility] Troponinon 04-22-2023 Interpretation and review of laboratory results Abnormal [facility] Troponin I.cardiac High sensitivity method [Mass/Vol] 84 ng/L Critically high 0 - 14 ng/L [facility] Comment on above: High Sensitivity Tro ponin values cannot be compared with other Troponin methodologies. Previous Alert Value Reported [facility] Interpretation and review of laboratory results Abnormal [facility] Troponin I.cardiac High sensitivity method [Mass/Vol] 90 ng/L Critically high 0 - 14 ng/L [facility] Comment on above: High Sensitivity Tro ponin values cannot be compared with other Troponin methodologies. Previous Alert Value Reported [facility] Interpretation and review of laboratory results Abnormal [facility] Troponin I.cardiac High sensitivity method [Mass/Vol] 103 ng/L Critically high 0 - 14 ng/L [facility] Comment on above: High Sensitivity Tro ponin values cannot be compared with other Troponin methodologies. Previous Alert Value Reported [facility] Interpretation and review of laboratory results Abnormal [facility] Troponin I.cardiac High sensitivity method [Mass/Vol] 105 ng/L Critically high 0 - 14 ng/L [facility] Comment on above: High Sensitivity Tro ponin values cannot be compared with other Troponin methodologies. [facility] XR CHEST PORTABLEon 04-22-20 Normal examination. [facility] RIS CONSOLIDATED EXAMINATION: ONE XRAY VIEW OF THE CHEST 04/22/2023 3:26 am COMPARISON: None. HISTORY: ORDERING SYSTEM PROVIDED HISTORY: pneumo TECHNOLOGIST PROVIDED HISTORY: pneumo FINDINGS: Heart size and pulmonary vasculature are normal. The lungs are clear and normally expanded. No evidence of pneumothorax or pleural effusion on this supine image. Surrounding osseous and soft tissue structures are unremarkable. [facility] RIS CONSOLIDATED Benji Leiva MD - 04/22/2023 EXAMINATION: ONE XRAY VIEW OF THE CHEST 04/22/2023 3:26 am COMPARISON: None. HISTORY: ORDERING SYSTEM PROVIDED HISTORY: pneumo TECHNOLOGIST PROVIDED HISTORY: pneumo FINDINGS: Heart size and pulmonary vasculature are normal. The lungs are clear and normally expanded. No evidence of pneumothorax or pleural effusion on this supine image. Surrounding osseous and soft tissue structures are unremarkable. IMPRESSION: Normal examination. [facility] XR CHEST PORTABLEOrdered By: Benji Leiva on 04-22-[address] [facility] Work Phone: HEPATITIS PANEL, ACUTEon HBsAg Screen Negative Normal Negative [facility] Comment on above: Performed By: #### H EPACUT #### [facility] [address] [place] [address] Dr. Dorothy Ornelas HCV AB >11.0 Critically high 0.0-0.9 [facility] Comment on above: Result Comment: . Performed By: #### H EPACUT #### [facility] [address] [address] [address] Dorothy Ornelas HCV log10 Normal [facility] Comment on above: Performed By: #### H EPACUT #### [facility] [address] [address] [address] Dorothy Ornelas Hep A Ab, IgM Negative Normal Negative [facility] Comment on above: Performed By: #### H EPACUT #### [facility] [address] [address] [address] Dorothy Ornelas Hep B Core Ab, IgM Negative Normal Negative [facility] Comment on above: Performed By: #### H EPACUT #### [facility] [address] [address] [address] Dorothy Ornelas Hep C Quantitation Not detected Normal [facility] Comment on above: Performed By: #### H EPACUT #### [facility] [address] [address] [address] Dorothy Ornelas Interpretation Comment Normal [facility] Comment on above: Result Comment: Posi tive HCV antibody screen without the presence of HCV RNA is consistent with a resolved past infection or a false positive HCV antibody. Consider repeat testing after one month. Performed By: #### H EPACUT #### [facility] [address] [place] [address] Dr. Dorothy Ornelas Test Information: Comment Normal [facility] Comment on above: Result Comment: The quantitative range of this assay is 15 IU/mL to 100 million IU/mL. Performed By: #### H EPACUT #### [facility] [address] [place] [address] Dr. Dorothy Ornelas HIV 1 AND 2 WITH REFLEXon HIV Screen 4th Generation wRfx Non-Reactive Normal Non Reactive [facility] Comment on above: Result Comment: HIV Negative HIV-1/HIV-2 antibodies and HIV-1 p24 antigen were NOT detected. There is no laboratory evidence of HIV infection. Performed By: #### H IV12 #### [facility] [address] [place] [address] Dr. Dorothy Ornelas RPR QUANTon 05-31-2022 Rapid Plasma Reagin, Quant Non-Reactive Normal NonRea<1:1 [facility] Comment on above: Result Comment: Plea se Note: This test does not meet current guidelines for screening and diagnosis of syphilis. This test is intended for following treatment response in patients being treated for syphilis infection. To screen for syphilis infection, a reflex cascade that includes both RPR and a treponema-specific assay should be utilized, such as Treponema pallidum (Syphilis) Screening [place] (315201) or Rapid Plasma Reagin (RPR) Test With Reflex to Quantitative RPR and Confirmatory Treponema pallidum Antibodies (297637). Performed By: #### R PRQ #### [facility] [address] [address] [address] Dorothy Ornelas CBC AUTO DIFFon 05-30-2022 BASO # 0.1 103/ul Normal 0.0-0.1 [facility] Comment on above: Performed By: #### C BC #### [facility] [address] [address] [address] Dorothy Ornelas Basophils/100 WBC (Bld) 0.5 % Normal 0.2-2.0 [facility] Comment on above: Performed By: #### C BC #### [facility] [address] [place] [address] Dr. Dorothy Ornelas EO # 0.1 103/ul Normal 0.0-0.7 [facility] Comment on above: Performed By: #### C BC #### [facility] [address] [place] [address] Dr. Dorothy Ornelas Eosinophils/100 WBC (Bld) 1.1 % Normal 0.9-7.0 [facility] Comment on above: Performed By: #### C BC #### [facility] [address] [place] [address] Dr. Dorothy Ornelas Erythrocyte distribution width (RBC) [Ratio] 13.0 % Normal 11.0-15.0 [facility] Comment on above: Performed By: #### C BC #### [facility] [address] [place] [address] Dr. Dorothy Ornelas Hematocrit (Bld) [Volume fraction] 45.1 % Normal 36.0-48.0 [facility] Comment on above: Performed By: #### C BC #### [facility] [address] [place] [address] Dr. Dorothy Ornelas Hemoglobin (Bld) [Mass/Vol] 15.1 g/dL Normal 12.0-16.0 [facility] Comment on above: Performed By: #### C BC #### [facility] [address] [place] [address] Dr. Dorothy Ornelas IG # 0.03 10e3/ul Normal 0.00-0.03 [facility] Comment on above: Performed By: #### C BC #### [facility] [address] [place] [address] Dr. Dorothy Ornelas IG % 0.3 % Normal 0.0-0.5 [facility] Comment on above: Performed By: #### C BC #### [facility] [address] [place] [address] Dr. Dorothy Ornelas LYMPH # 4.1 103/ul Critically high 1.2-3.8 [facility] Comment on above: Performed By: #### C BC #### [facility] [address] [place] [address] Dr. Dorothy Ornelas Lymphocytes/100 WBC (Bld) 38.2 % Normal 20.5-60.0 [facility] Comment on above: Performed By: #### C BC #### [facility] [address] [place] [address] Dr. Dorothy Ornelas MANUAL DIFF REQ NO Normal [facility] Comment on above: Performed By: #### C BC #### [facility] [address] [place] [address] Dr. Dorothy Ornelas MCH (RBC) [Entitic mass] 30.4 pg Normal 26.7-34.0 [facility] Comment on above: Performed By: #### C BC #### [facility] [address] [place] [address] Dr. Dorothy Ornelas MCHC (RBC) [Mass/Vol] 33.5 g/dL Normal 29.9-35.2 [facility] Comment on above: Performed By: #### C BC #### [facility] [address] [place] [address] Dr. Dorothy Ornelas MCV (RBC) [Entitic vol] 90.9 fL Normal 81.0-99.0 [facility] Comment on above: Performed By: #### C BC #### [facility] [address] [place] [address] Dr. Dorothy Ornelas MONO # 0.6 103/ul Normal 0.3-0.8 [facility] Comment on above: Performed By: #### C BC #### [facility] [address] [place] [address] Dr. Dorothy Ornelas Monocytes/100 WBC (Bld) 5.9 % Normal 1.7-12.0 [facility] Comment on above: Performed By: #### C BC #### [facility] [address] [place] [address] Dr. Dorothy Ornelas NEUT # 5.8 103/ul Normal 1.4-6.5 [facility] Comment on above: Performed By: #### C BC #### [facility] [address] [place] [address] Dr. Dorothy Ornelas Neutrophils/100 WBC (Bld) 54.0 % Normal 43.0-75.0 [facility] Comment on above: Performed By: #### C BC #### [facility] [address] [place] [address] Dr. Dorothy Ornelas Platelet mean volume (Bld) [Entitic vol] 9.3 fL Critically low 9.5-13.5 [facility] Comment on above: Performed By: #### C BC #### [facility] [address] [place] [address] Dr. Dorothy Ornelas PLT 390 103/ul Normal 150-450 [facility] Comment on above: Performed By: #### C BC #### [facility] [address] [place] [address] Dr. Dorothy Ornelas RBC 4.96 106/ul Normal 4.20-5.40 [facility] Comment on above: Performed By: #### C BC #### [facility] [address] [place] [address] Dr. Dorothy Ornelas WBC 10.8 103/ul Normal 4.0-11.0 [facility] Comment on above: Performed By: #### C BC #### [facility] [address] [place] [address] Dr. Dorothy Ornelas PROF 14(COMP METB)on 022 Albumin [Mass/Vol] 3.6 g/dL Normal 3.4-5.0 [facility] Comment on above: Performed By: #### C MP #### [facility] [address] [address] [address] Dorothy Ornelas Albumin/Globulin [Mass ratio] 0.8 {ratio} Normal [facility] Comment on above: Performed By: #### C MP #### [facility] [address] [address] [address] Dorothy Ornelas ALP [Catalytic activity/Vol] 101 U/L Normal 46-116 [facility] Comment on above: Performed By: #### C MP #### [facility] [address] [place] [address] Dr. Dorothy Ornelas ALT [Catalytic activity/Vol] 90 U/L Critically high 14-59 [facility] Comment on above: Performed By: #### C MP #### [facility] [address] [place] [address] Dr. Dorothy Ornelas Anion gap [Moles/Vol] 11.3 mmol/L Normal [facility] Comment on above: Performed By: #### C MP #### [facility] [address] [place] [address] Dr. Dorothy Ornelas AST [Catalytic activity/Vol] 65 U/L Critically high 15-37 [facility] Comment on above: Performed By: #### C MP #### [facility] [address] [place] [address] Dr. Dorothy Ornelas Bilirubin [Mass/Vol] 0.4 mg/dL Normal 0.2-1.0 [facility] Comment on above: Performed By: #### C MP #### [facility] [address] [place] [address] Dr. Dorothy Ornelas Calcium [Mass/Vol] 9.0 mg/dL Normal 8.5-10.1 [facility] Comment on above: Performed By: #### C MP #### [facility] [address] [place] [address] Dr. Dorothy Ornelas Chloride [Moles/Vol] 101 mmol/L Normal 98-107 [facility] Comment on above: Performed By: #### C MP #### [facility] [address] [place] [address] Dr. Dorothy Ornelas CO2 [Moles/Vol] 22.8 mmol/L Normal 21.0-32.0 [facility] Comment on above: Performed By: #### C MP #### [facility] [address] [address] [address] Dorothy Ornelas Creatinine [Mass/Vol] 0.84 mg/dL Normal 0.55-1.02 [facility] Comment on above: Performed By: #### C MP #### [facility] [address] [address] [address] Dorothy Ornelas EGFR-AF PORTUGUESE >60 Normal >=60 [facility] Comment on above: Performed By: #### C MP #### [facility] [address] [address] [address] Dorothy Ornelas EGFR-NON AF [place]UESE >60 Normal >=60 [facility] Comment on above: Performed By: #### C MP #### [facility] [address] [place] [address] Dr. Dorothy Ornelas Globulin (S) [Mass/Vol] 4.3 g/dL Normal [facility] Comment on above: Performed By: #### C MP #### [facility] [address] [place] [address] Dr. Dorothy Ornelas Glucose [Mass/Vol] 103 mg/dL Normal 74-106 [facility] Comment on above: Performed By: #### C MP #### [facility] [address] [place] [address] Dr. Dorothy Ornelas Potassium [Moles/Vol] 4.1 mmol/L Normal 3.5-5.1 [facility] Comment on above: Performed By: #### C MP #### [facility] [address] [address] [address] Dorothy Ornelas Protein [Mass/Vol] 7.9 g/dL Normal 6.4-8.2 [facility] Comment on above: Performed By: #### C MP #### [facility] [address] [place] [address] Dr. Dorothy Ornelas Sodium [Moles/Vol] 131 mmol/L Critically low 136-145 Th [facility] Comment on above: Performed By: #### C MP #### [facility] [address] [address] [address] Dorothy Ornelas Urea nitrogen [Mass/Vol] 9.0 mg/dL Normal 7.0-18.0 [facility] Comment on above: Performed By: #### C MP #### [facility] [address] [address] [address] Dorothy Ornelas Urea nitrogen/Creatinine [Mass ratio] 10.7 mg/mg Normal [facility] Comment on above: Performed By: #### C MP #### [facility] [address] [address] [address] Dorothy Ornelas CBCon 01-11-2019 Erythrocyte distribution width (RBC) [Ratio] 14.2 % Normal 11.8-14.4 [facility] Comment on above: Performed By: #### C BC, HCG, CP #### [address] [place] [address] Dispensing And Measuring Optician: Gee Velasco MD #### HIVCMB, PHEP #### [facility] [address] [place] [address] Dispensing And Measuring Optician: Main Hunt MD Hematocrit (Bld) [Volume fraction] 36.1 % Low 36.3-47.1 [facility] Comment on above: Performed By: #### C BC, HCG, CP #### [address] [place] [address] Dispensing And Measuring Optician: Gee Velasco MD #### HIVCMB, PHEP #### [facility] [address] [place] [address] Dispensing And Measuring Optician: Main Hunt MD Hemoglobin (Bld) [Mass/Vol] 11.8 g/dL Low 11.9-15.1 [facility] Comment on above: Performed By: #### C BC, HCG, CP #### [address] [place] [address] Dispensing And Measuring Optician: Gee Velasco MD #### HIVCMB, PHEP #### [address] [place], [place] [id number] [employer]pensing And Measuring Optician: Main Hunt MD MCH (RBC) [Entitic mass] 28.4 pg Normal 25.2-33.5 [facility] Comment on above: Performed By: #### C BC, HCG, CP #### [address] [place] [id number] Dispensing [employer] Measuring Optician: Gee Velasco MD #### HIVCMB, PHEP #### [address] [id number] [employer]pensing [employer] Measuring Optician: Main Hunt MD MCHC (RBC) [Mass/Vol] 32.7 g/dL Normal 28.4-34.8 [facility] Comment on above: Performed By: #### C BC, HCG, CP #### [address] [place] [id number] Dispensing And Measuring Optician: Gee Velasco MD #### HIVCMB, PHEP #### [place] [address] Dispensing And Measuring Optician: Main Hunt MD MCV (RBC) [Entitic vol] 86.8 fL Normal 82.6-102.9 [facility] Comment on above: Performed By: #### C BC, HCG, CP #### [address] [place] [id number] Dispensing And Measuring Optician: Gee Velasco MD #### HIVCMB, PHEP #### [address] [id number] [employer]pensing [employer] Measuring Optician: Main Hunt MD NRBC Automated 0.0 per [address] [facility] Comment on above: Performed By: #### C BC, HCG, CP #### [address] [place] [id number] Dispensing And Measuring Optician: Gee Velasco MD #### HIVCMB, PHEP #### [address] [place], [place] [id number] Dispensing And Measuring Optician: Main Hunt MD Platelet mean volume (Bld) [Entitic vol] 9.5 fL Normal 8.1-13.5 [facility] Comment on above: Performed By: #### C BC, HCG, CP #### [facility] [address] [place] [address] [address] [place] [id number] Dispensing And Measuring Optician: Gee Velasco MD #### HIVCMB, PHEP #### [address] [id number] [employer]pensing And Measuring Optician: Main Hunt MD Platelets (Bld) [#/Vol] 453 10*3/uL Normal 138-453 [facility] Comment on above: Performed By: #### C BC, HCG, CP #### [address] [place] [id number] Dispensing And Measuring Optician: Gee Velasco MD #### HIVCMB, PHEP #### [address] [id number] Dispensing And Measuring Optician: Main Hunt MD RBC (Bld) [#/Vol] 4.16 10*6/uL Normal 3.95-5.11 [facility] Comment on above: Performed By: #### C BC, HCG, CP #### [address] [place] [address] Dispensing And Measuring Optician: Gee Velasco MD #### HIVCMB, PHEP #### [address] [id number] Dispensing And Measuring Optician: Main Hunt MD WBC (Bld) [#/Vol] 9.4 10*3/uL Normal 3.5-11.3 [facility] Comment on above: Performed By: #### C BC, HCG, CP #### [address] [place] [address] Dispensing And Measuring Optician: Gee Velasco MD #### HIVCMB, PHEP #### [facility] [address] [place], [place] [id number] Dispensing And Measuring Optician: Main Hunt MD Comp Metabolic Profon 2018 (cont.) Normal [facility] Comment on above: Result Comment: Aver age GFR for 20-29 years old: 116 mL/min/1.73sq m Chronic Kidney Disease: <60 mL/min/1.73sq m Kidney failure: <15 mL/min/1.73sq m eGFR calculated using average adult body mass. Additional eGFR calculator available at: http://www.[employer]/multiple_crcl_2011.htm Performed By: #### C BC, HCG, CP #### [address] [place] [address] Dispensing And Measuring Optician: Gee Velasco MD #### HIVCMB, PHEP #### [address] [place], [place] [id number] Dispensing And Measuring Optician: Main Hunt MD Albumin [Mass/Vol] 4.1 g/dL Normal 3.5-5.2 [facility] Comment on above: Performed By: #### C BC, HCG, CP #### [address] [place] [address] Dispensing And Measuring Optician: Gee Velasco MD #### HIVCMB, PHEP #### [facility] [address] [place], [place] [id number] Dispensing And Measuring Optician: Main Hunt MD Albumin/Globulin [Mass ratio] 1.2 {ratio} Normal 1.0-2.5 [facility] Comment on above: Performed By: #### C BC, HCG, CP #### [address] [place] [address] Dispensing And Measuring Optician: Gee Velasco MD #### HIVCMB, PHEP #### [address] [place] [address] Dispensing And Measuring Optician: Main Hunt MD Alkaline Phos 85 U/L Normal 35-104 [facility] Comment on above: Performed By: #### C BC, HCG, CP #### [facility] [address] [place], [place] [id number] Dispensing And Measuring Optician: Gee Velasco MD #### HIVCMB, PHEP #### [address] [address] Dispensing And Measuring Optician: Main Hunt MD ALT [Catalytic activity/Vol] 26 U/L Normal 5-33 [facility] Comment on above: Performed By: #### C BC, HCG, CP #### [facility] [address] [place], [place] [id number] Dispensing And Measuring Optician: Gee Velasco MD #### HIVCMB, PHEP #### [address] [address] Dispensing And Measuring Optician: Main Hunt MD Anion gap [Moles/Vol] 14 mmol/L Normal 9-17 [facility] Comment on above: Performed By: #### C BC, HCG, CP #### [address] [place], [place] [phone] Dispensing And Measuring Optician: Gee Velasco MD #### HIVCMB, PHEP #### [address] [address] Dispensing And Measuring Optician: Main Hunt MD AST [Catalytic activity/Vol] 23 U/L Normal <32 [facility] Comment on above: Performed By: #### C BC, HCG, CP #### [facility] [address] [place], [place] [phone] Dispensing And Measuring Optician: Gee Velasco MD #### HIVCMB, PHEP #### [address] [place] [address] Dispensing And Measuring Optician: Main Hunt MD Bilirubin Ql (U) 0.65 mg/dL Normal 0.3-1.2 [facility] Comment on above: Performed By: #### C BC, HCG, CP #### [facility] [address] [place], [place] [id number] Dispensing And Measuring Optician: Gee Velasco MD #### HIVCMB, PHEP #### [address] [address] Dispensing And Measuring Optician: Main Hunt MD BUN/CRE Ratio 7 Low 9-20 [facility] Comment on above: Performed By: #### C BC, HCG, CP #### [facility] [address] [place] [address] Dr. [place], [place] [id number] Dispensing And Measuring Optician: Gee Velasco MD #### HIVCMB, PHEP #### [address] [address] Dispensing And Measuring Optician: Main Hunt MD Calcium [Mass/Vol] 9.3 mg/dL Normal 8.6-10.4 [facility] Comment on above: Performed By: #### C BC, HCG, CP #### [facility] [address] [place] [address] Dr. [place]án[place], [place] [id number] Dispensing And Measuring Optician: Gee Velasco MD #### HIVCMB, PHEP #### [address] [address] Dispensing And Measuring Optician: Main Hunt MD Chloride [Moles/Vol] 95 mmol/L Low 98-107 [facility] Comment on above: Performed By: #### C BC, HCG, CP #### [facility] [address] [place] [address] Dr. [place], [place] [id number] Dispensing And Measuring Optician: Gee Velasco MD #### HIVCMB, PHEP #### [address] [address] Dispensing And Measuring Optician: Main Hunt MD CO2 [Moles/Vol] 26 mmol/L Normal 20-31 [facility] Comment on above: Performed By: #### C BC, HCG, CP #### [facility] [address] [place], [place] [id number] Dispensing And Measuring Optician: Gee Velasco MD #### HIVCMB, PHEP #### [address] [address] Dispensing And Measuring Optician: Main Hunt MD Creatinine [Mass/Vol] 0.69 mg/dL Normal 0.50-0.90 [facility] Comment on above: Performed By: #### C BC, HCG, CP #### [address] [place], [place] [id number] Dispensing And Measuring Optician: Gee Velasco MD #### HIVCMB, PHEP #### [address] [address] Dispensing And Measuring Optician: Main Hunt MD GFR, Amer >60 Normal >60 [facility] Comment on above: Performed By: #### C BC, HCG, CP #### [facility] [address] [place] [address] Dr. [place], [place] [id number] Dispensing And Measuring Optician: Gee Velasco MD #### HIVCMB, PHEP #### [address] [address] Dispensing And Measuring Optician: Main Hutn MD GFR,non Amer >60 Normal >60 [facility] Comment on above: Performed By: #### C BC, HCG, CP #### [facility] [address] [place] [address] Dr. [place], [place] [id number] Dispensing And Measuring Optician: Gee Velasco MD #### HIVCMB, PHEP #### [address] [address] Dispensing And Measuring Optician: Main Hunt MD Glucose [Mass/Vol] 87 mg/dL Normal 70-99 [facility] Comment on above: Performed By: #### C BC, HCG, CP #### [facility] [address] [place] [address] Dr. [place], [place] [id number] Dispensing And Measuring Optician: Gee Velasco MD #### HIVCMB, PHEP #### [address] [address] Dispensing And Measuring Optician: Main Hunt MD Potassium [Moles/Vol] 3.6 mmol/L Low 3.7-5.3 [facility] Comment on above: Performed By: #### C BC, HCG, CP #### [address] [place] [id number] Dispensing And Measuring Optician: Gee Velasco MD #### HIVCMB, PHEP #### [address] [address] Dispensing And Measuring Optician: Main Hunt MD Protein [Mass/Vol] 7.6 g/dL Normal 6.4-8.3 [facility] Comment on above: Performed By: #### C BC, HCG, CP #### [address] [place] [id number] Dispensing And Measuring Optician: Gee Velasco MD #### HIVCMB, PHEP #### [address] [address] Dispensing And Measuring Optician: Main Hunt MD Sodium [Moles/Vol] 135 mmol/L Normal 135-144 [facility] Comment on above: Performed By: #### C BC, HCG, CP #### [address] [place] [id number] Dispensing And Measuring Optician: Gee Velasco MD #### HIVCMB, PHEP #### [address] [address] Dispensing And Measuring Optician: Main Hunt MD Staging: Normal [facility] Comment on above: Result Comment: Stag e 1: Some kidney damage normal GFR Stage 2: Mild kidney damage GFR 60-89 Stage 3: Moderate kidney damage GFR 30-59 Stage 4: Severe kidney damage GFR 15-29 Stage 5: Severe kidney damage GFR <15 ESRD - chronic treatment by dialysis or transplant Performed By: #### C BC, HCG, CP #### [facility] [address] [place], [place] [address] Dispensing And Measuring Optician: Gee Velasco MD #### HIVCMB, PHEP #### [place] [address] [place], [place] [id number] Dispensing And Measuring Optician: Main Hunt MD Urea nitrogen [Mass/Vol] 5 mg/dL Low - [facility] Comment on above: Performed By: #### C BC, HCG, CP #### [facility] [address] [place] [address] Dispensing And Measuring Optician: Gee Velasco MD #### HIVCMB, PHEP #### [facility] [address] [place], [place] [id number] Dispensing And Measuring Optician: Main Hunt MD HCG Screen, Bloodon 01-12-20 19 HCG Qn Negative Normal NEG [facility] Comment on above: Result Comment: Spec imens with hCG levels near the threshold of the test (25 mIU/mL) may give a negative or indeterminate result. In such cases, another test should be performed with a new specimen in 48-72 hours. If early is suspected clinically in this setting, correlation with quantitative serum b-hCG level is suggested. [facility] has confirmed the use of plasma for this test. This has not been cleared or approved by the U.S. Food and Drug Administration. The FDA has determined that such clearance is not necessary. Performed By: #### C BC, HCG, CP #### [facility] [address] [place] [address] Dispensing And Measuring Optician: Gee Velasco MD #### HIVCMB, PHEP #### [facility] [address] [place], [place] [id number] Dispensing And Measuring Optician: Main Hunt MD HIV Ag/Abon 01-11-2019 HIV Ag/Ab NONREACTIVE Normal NR [facility] Comment on above: Result Comment: No l aboratory evidence of HIV infection. If acute HIV infection is suspected, consider testing for HIV-1 RNA. Performed By: #### C BC, HCG, CP #### [facility] [address] [place], [place] [id number] Dispensing And Measuring Optician: Gee Velasco MD #### HIVCMB, PHEP #### [address] [address] Dispensing And Measuring Optician: Main Hunt MD Hepatitis Acute [facility] 01-11 Hep A Ab,IgM NONREACTIVE Normal NR [facility] Comment on above: Performed By: #### C BC, HCG, CP #### [facility] [address] [place] [address] Dr. [place], [place] [id number] Dispensing And Measuring Optician: Gee Velasco MD #### HIVCMB, PHEP #### [address] [address] Dispensing And Measuring Optician: Main Hunt MD Hep B Core Ab,IgM NONREACTIVE Normal NR [facility] Comment on above: Performed By: #### C BC, HCG, CP #### [address] [place], [place] 2016883 Dispensing And Measuring Optician: Gee Velasco MD #### HIVCMB, PHEP #### [address] [address] Dispensing And Measuring Optician: Main Hunt MD Hep B Surf Ag NONREACTIVE Normal NR [facility] Comment on above: Performed By: #### C BC, HCG, CP #### [facility] [address] [place] [address] Dispensing And Measuring Optician: Gee Velasco MD #### HIVCMB, PHEP #### [address] [address] Dispensing And Measuring Optician: Main Hunt MD Hep C Ab NONREACTIVE Normal NR [facility] Comment on above: Result Comment: The hepatitis C procedure used in our laboratory is a Chemiluminescent test specific for three recombinant HCV antigens. A negative anti-HCV result indicates that the antibodies to hepatitis C virus are not present at this time. Individuals with reactive anti-HCV should be considered infected and infectious until proven otherwise. Confirmation of all equivocal or reactive results is recommended by ordering HCV RNA by PCR. Performed By: #### C BC, HCG, CP #### [facility] [address] [place] [address] Dispensing And Measuring Optician: Gee Velasco MD #### HIVCMB, PHEP #### [facility] [address] [place], [place] [id number] Dispensing And Measuring Optician: Main Hunt MD Vital Signs Date Time Vital Sign Value Performing Clinician Faci lity 05-21-2023 09:17-0400 Diastolic blood pressure 90 mm[Hg] [facility] 05-21-2023 09:17-0400 Heart rate 115 /min [facility] 05-21-2023 09:17-0400 Respiratory rate 18 /min [facility] 05-21-2023 09:17-0400 SaO2% (BldA) [Mass fraction] 98 % [facility] 05-21-2023 09:17-0400 Systolic blood pressure 146 mm[Hg] [facility] 05-21-2023 06:28-0400 Body height 157.48 cm [facility] 05-21-2023 06:28-0400 Body weight 111.13 kg [facility] 05-21-2023 06:27-0400 Body temperature 98.4 [degF] [facility] 04-27-2023 09:38-0400 Respiratory rate 15 /min Salo Olivia MD Work Phone: [facility] 04-27-2023 07:43-0400 Body temperature 98.4 [degF] Salo Olivia MD [facility] Phone: [facility] 04-27-2023 07:43-0400 Diastolic blood pressure 112 mm[Hg] Salo Olivia MD Work Phone: [facility] 04-27-2023 07:43-0400 Heart rate 116 /min Salo Olivia MD Work Phone: [facility] 04-27-2023 07:43-0400 SaO2% (BldA) [Mass fraction] 97 % Salo Olivia MD Work Phone: [facility] 04-27-2023 07:43-0400 Systolic blood pressure 160 mm[Hg] Salo Olivia MD Work Phone: [facility] 04-25-2023 06:00-0400 Body weight 108.4 kg Salo Olivia MD Work Phone: [facility] Encounters Encounter Date Encounter Type Care Provider Facility Start: 02-22-2024 End: 02-22-2024 Emergency department patient visit [facility] Start: 05-21-2023 End: 05-21-2023 Emergency department patient visit Truong Concepcion Facility:[facility] Start: 05-21-2023 End: 05-21-2023 Emergency department patient visit [facility] Work Phone: Start: 04-22-2023 End: 04-27-2023 Evaluation and management of inpatient Salo Olivia MD Work Phone: [facility] Comment on above: Leg swelling (Primar y Dx); Acute kidney injury (HCC); Non-traumatic rhabdomyolysis; Elevated LFTs Start: 05-30-2022 End: 05-31-[address] NANI GUNTER Facility: Start: 01-11-2019 End: 01-12-2019 Patient encounter procedure [facility] Procedures Date Procedure Procedure Detail Performing Clinician Start: 05-21-2023 End: 05-21-2023 Plain chest X-ray Start: 05-21-2023 Plain X-ray of left tibia and left fibula Start: 04-27-2023 BASIC METABOLIC PANE L W/ REFLEX TO MG FOR LOW K Brendan Hand MD Work Phone: Start: 04-27-2023 Creatine kinase total J ulhima Schira F[employer]OSS - ORDER EDITOR Work Phone: Start: 04-26-2023 Glucose blood reagen t strip Yesenia Anne MD Work Phone: Start: 04-26-2023 Glucose blood reagen t strip Yesenia Anne MD Work Phone: Start: 04-26-2023 Mri lower extrem oth /thn jt w/o contr matrl Sandi Schira F[employer] - ORDER EDITOR Work Phone: Start: 04-26-2023 Mri lower extrem oth /thn jt w/o contr matrl Joe Vurest DO Work Phone: Start: 04-26-2023 Antibody hiv-1&hiv-2 single result Sandi Schira F[employer] - ORDER EDITOR Work Phone: Start: 04-26-2023 Creatine kinase total J ulhima Schira F[employer]OSS - ORDER EDITOR Work Phone: Start: 04-26-2023 BASIC METABOLIC PANE L W/ REFLEX TO MG FOR LOW K Brendan Hand MD Work Phone: Start: 04-26-2023 End: 04-26-2023 Blood count complete auto&auto difrntl wbc Sheila Parekh MD Work Phone: Start: 04-25-2023 Potassium serum plasma/whole blood Susanna Duran MD Work Phone: Start: 04-25-2023 Radiologic examinati on femur minimum 2 views Joe Thomast DO Work Phone: Start: 04-25-2023 Dup-scan xtr veins complete bilateral study Edda Howell MD Work Phone: Start: 04-25-2023 BASIC METABOLIC PANE L W/ REFLEX TO MG FOR LOW K Brendan Hand MD Work Phone: Start: 04-25-2023 Creatine kinase total S miles Olivia MD Work Phone: Start: 04-24-2023 Glucose blood reagen t strip Salo Olivia MD Work Phone: Start: 04-24-2023 Glucose blood reagen t strip Salo Olivia MD Work Phone: Start: 04-24-2023 Assay of magnesium Leigh Olivia MD Work Phone: Start: 04-24-2023 BASIC METABOLIC PANE L W/ REFLEX TO MG FOR LOW K Salo Olivia MD Work Phone: Start: 04-24-2023 Glucose blood reagen t strip Salo Olivia MD Work Phone: Start: 04-24-2023 Glucose blood reagen t strip Salo Olivia MD Work Phone: Start: 04-24-2023 End: 04-24-2023 Culture bacterial quanttative colony count urine Salo Olivia MD Work Phone: Start: 04-24-2023 BASIC METABOLIC PANE L W/ REFLEX TO MG FOR LOW K Edda Howell MD Work Phone: Start: 04-24-2023 Urnls dip stick/tabl et rgnt auto w/o microscopy Delonte Landa MD Work Phone: Start: 04-24-2023 End: 04-24-2023 Creatine kinase total Jillian Cuevas MD Work Phone: Start: 04-24-2023 Hepatic function panel Jillian Cuevas MD Work Phone: Start: 04-23-2023 BASIC METABOLIC PANE L W/ REFLEX TO MG FOR LOW K Salo Olivia MD Work Phone: Start: 04-23-2023 Prothrombin time Edda Howell MD Work Phone: Start: 04-23-2023 Creatine kinase total W pia Sawyer MD Work Phone: Start: 04-23-2023 End: 04-23-2023 Assay of ammonia Jillian Cuevas MD Work Phone: Start: 04-23-2023 Glucose blood reagen t strip Salo Olivia MD Work Phone: Start: 04-23-2023 Blood count complete auto&auto difrntl wbc Salo Olivia MD Work Phone: Start: 04-22-2023 BASIC METABOLIC PANE L W/ REFLEX TO MG FOR LOW K Delonte Landa MD Work Phone: Start: 04-22-2023 Assay of troponin quantitative Delonte Landa MD Work Phone: Start: 04-22-2023 Us abdominal real ti me w/image limited Brendan Hand MD Work Phone: Start: 04-22-2023 Assay of troponin quantitative Delonte Landa MD Work Phone: Start: 04-22-2023 Assay of lactate Velasquez Olivia MD Work Phone: Start: 04-22-2023 Culture bacterial bl ood aerobic w/id isolates Brendan Hand MD Work Phone: Start: 04-22-2023 Drug screen, qualitate/multi Salo Olivia MD Work Phone: Start: 04-22-2023 CULTURE, BLOOD 1 Di Hand MD Work Phone: Start: 04-22-2023 Basic metabolic pane l calcium total Salo Olivia MD Work Phone: Start: 04-22-2023 BASIC METABOLIC PANE L W/ REFLEX TO MG FOR LOW K Brendan Hand MD Work Phone: Start: 04-22-2023 End: 04-22-2023 Creatine kinase total Brendan hernadez MD Work Phone: Start: 04-22-2023 MYOGLOBIN, BLOOD Di Hand MD Work Phone: Start: 04-22-2023 ARTERIAL BLOOD GAS, POC Salo Olivia MD Work Phone: Start: 04-22-2023 End: 04-22-2023 Gluc bld gluc mntr dev cleared fda spec home use Salo Olivia MD Work Phone: Start: 04-22-2023 End: 04-22-2023 LACTIC ACID,POINT OF CARE Salo perez MD Work Phone: Start: 04-22-2023 Radiologic exam ches t single view Brendan Hand MD Work Phone: Start: 04-22-2023 RESPIRATORY CARE EVALUATION ONLY Brendan Hand MD Work Phone: Start: 04-22-2023 Drug tst prsmv instr mnt chem analyzers pr date Brendan Hand MD Work Phone: Start: 04-22-2023 CALCIUM, IONIC (POC) Sr bere Olivia MD Work Phone: Start: 04-22-2023 CREATININE W/GFR POI NT OF CARE Salo Olivia MD Work Phone: Start: 04-22-2023 ELECTROLYTES PLUS Kiran Olivia MD Work Phone: Start: 04-22-2023 MIXED VENOUS GAS, PO INT OF CARE Salo Olivia MD Work Phone: Start: 04-22-2023 Ecg routine ecg w/le ast 12 lds i&r only Brendan Hand MD Work Phone: Start: 04-22-2023 Iadna s aureus methi cillin resist amp probe tq Hugh George MD Work Phone: Start: 01-11-2019 Acute hepatitis panel E SAIMA HAMMOND Start: 01-11-2019 Antibody hiv-1&hiv-2 single result NEAL HAMMOND Start: 01-11-2019 Blood count complete automated NEAL HAMMOND Start: 01-11-2019 Comprehensive metabo lic panel NEAL HAMMOND Start: 01-11-2019 Gonadotropin chorion ic qualitative NEAL HAMMOND Plan of Treatment Date Care Activity Detail Author Start: 05-21-2023 Duplex scan of lower limb veins US venous duplex LE LT [facility] Start: 05-21-2023 US Lower extremity v ein - left [facility] Start: 05-04-2023 End: 04-27-2024 CK CK Lab Routine Non-traumatic rhabdomyolysis Expected: 05/04/2023, Expires: 04/27/[address] [facility] Comment on above: Expected: 05/04/2023 , Expires: 04/27/2024 Start: 05-04-2023 End: 04-27-2024 Comprehensive metabolic 2000 panel - Serum or Plasma Comprehensive Metabolic Panel Lab Routine Acute kidney injury (HCC) Elevated LFTs Expected: 05/04/2023, Expires: 04/27/2024 [facility] Comment on above: Expected: 05/04/2023 , Expires: 04/27/2024 Start: 03-24-2023 Influenza vaccination Flu vaccine (# 1) [facility] Start: 2015 Screening for malign ant neoplasm of cervix Pap smear [facility] Start: 2013 DTaP/Tdap/Td vaccine (1 - Tdap) DTaP/Tdap/Td vaccine (1 - Tdap) [facility] Start: 2006 Depression Monitoring Depression Mon itoring [facility] Start: 1995 Varicella vaccine (1 of 2 - 2-dose childhood series) Varicella vaccine (1 of 2 - 2-dose childhood series) [facility] Start: 1994 COVID-19 Vaccine (#1) COVID-19 Vacci ne (#1) [facility] ABG draw ABG draw Respira tory Care Routine As Needed until discontinued starting 04/22/2023 [employer] Comment on above: As Needed until disc ontinued starting 04/22/2023 End: 05-16-2023 CBC W Auto Differential panel - Blood CBC with Auto Differential Lab Routine Daily for 3 Weeks starting 04/26/2023 until 05/16/2023, 2 completed [employer] Comment on above: Daily for [address] arting 04/26/2023 until 05/16/2023, 2 completed End: 04-29-2023 CK CK Lab Routine Daily for 3 Days starting 04/27/2023 until 04/29/2023, 1 completed [employer] Comment on above: Daily for 3 Days sta rting 04/27/2023 until 04/29/2023, 1 completed Continuous pulse oximetry Pulse oximetry, continuous Respiratory Care Routine Every 4hr until discontinued starting 04/22/2023 [employer] Comment on above: Every 4hr until disc ontinued starting 04/22/2023 End: 04-22-2023 Culture, Respiratory Culture, Respiratory Microbiology Routine One Time for 1 Occurrences starting 04/22/2023 until 04/22/2023 [employer] Comment on above: One Time for 1 Occur rences starting 04/22/2023 until 04/22/2023 End: 04-22-2023 Culture, Virus, Respiratory Culture, Virus, Respiratory Microbiology Routine One Time for 1 Occurrences starting 04/22/2023 until 04/22/2023 [employer] Comment on above: One Time for 1 Occur rences starting 04/22/2023 until 04/22/2023 Glucose [Mass/volume ] in Serum or Plasma POCT glucose Point of Care Testing Routine 4X Daily (AC & HS) until discontinued starting 04/22/2023 [employer] Work Phone: Comment on above: 4X Daily (AC & HS) u ntil discontinued starting 04/22/2023 Mri lower extrem oth /thn jt w/o contr matrl MRI TIBIA FIBULA RIGHT WO CONTRAST Imaging STAT 04/26/2023 12:06 PM EDT [employer] Oxygen therapy [place] [place] Initiate Oxygen Therapy Protocol Respiratory Care Routine As Needed until discontinued starting 04/22/2023 [facility] Comment on above: As Needed until disc ontinued starting 04/22/2023 Patient Education Tachycardia De pendent Edema (DC) Muscle and Bone Pain (DC) [facility] Work Phone: Patient referral [facility] Work Phone: End: 04-22-2023 PREVIOUS SPECIMEN [employer] Work Phone: Comment on above: Once for 1 Occurrenc es starting 04/22/2023 until 04/22/2023 Radiologic examinati on femur minimum 2 views XR FEMUR RIGHT (MIN 2 VIEWS) Imaging STAT 04/25/2023 6:26 PM EDT [employer] Radiologic examinati on knee 3 views XR KNEE RIGHT (3 VIEWS) Imaging STAT 04/25/2023 6:26 PM EDT [employer] Work Phone: Radiologic examinati on tibia & fibula 2 views XR TIBIA FIBULA RIGHT (2 VIEWS) Imaging STAT 04/25/2023 6:26 PM EDT [employer] Payers Date Payer Category Payer Self-pay [id number] 1995 Unknown [id number] 1994 Unknown [id number] 1994 Unknown [id number] 1959 Unknown [id number] Unknown [id number] Social History Date Type Detail Facility Tobacco smoking status MTIS Tobacco smoking consumption unknown [employer] Start: 1995 Sex Assigned At Not on file B [facility] Start: 05-21-2023 Tobacco smoking status NHIS Smoker (finding) [facility] Start: 1995 Sex Assigned At Female F [facility] Hospital Discharge instructions 04-27-2023 Discharge InstructionsAttachments Note Date & Type Note Facility 04-27-2023 Hospital Discharg e instructions Yesenia Anne MD - 04/27/2023 3:37 PM EDT - Avoid excessive or strenuous activities till you follow-up with your PCP and get cleared -Repeat blood work in 1 week The following attachments cannot be sent through Care Everywhere.UTI (Urinary Tract Infection): Female ([place]ian)Rhabdomyolysis ([place]ian)Hepatitis C (Eth[place]ian)documented in this encounter [facility] course Narrative 04-27-2023 Yesenia Anne MD - 04/27/2023 2:24 PM EDT Note Date & Type Note Facility 04-27-2023 Hospital course Narrative [facility] Office: [phone] Evangelista Ledezma DO, Wojciech New DO, Piter Shin DO, Eric Aguillon DO, Ila Davila MD, Cora Ly MD, Natasha Monteiro MD, Yesenia Anne MD, Cory Balbuena MD, Catalina Sinha MD,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 (GLYCOLAX) packet 17 g 17 g, Oral, DAILY PRN, Starting on Thu04/22/23 at 0313, Until Discontinued, Constipation, First line therapy for constipation sodium chloride flush 0.9 % injection 5-40 mL 5-40 mL, IntraVENous, PRN, Starting on Thu04/22/23 at 0313, Until Discontinued, Line Care, After every IV line use, For Line Patency: Peripheral IV = 5 mL; Midline or Central Line = 10 mL/lumen. If following IV push medication, administer flush at same rate as the IV push. Flush volume is determined by type of infusion therapy being given. For non-viscous solutions use: Peripheral IV = 5 mL Midline or Central Line = 10 mL/lumen For viscous solutions (i.e. blood components, parenteral nutrition, contrast media, or after obtaining blood sample) use: Peripheral IV = 10 mL Midline or Central Line = 20 mL/lumen traZODone (DESYREL) tablet 50 mg 50 mg, Oral, NIGHTLY PRN, Starting on Thu04/24/23 at 1640, Until Discontinued, Sleep 2027 (Given - Provider: Sadi Swain RN) Linked Groups Order Group 1: ondansetron (ZOFRAN-ODT) disintegrating tablet 4 mgJump to med 4 mg, Oral, EVERY 8 HOURS PRN, Starting on Thu04/22/23 at 0313, Until Discontinued, Nausea, Vomiting Or ondansetron (ZOFRAN) injection 4 mgJump to med 4 mg, IntraVENous, EVERY 6 HOURS PRN, Starting on Thu04/22/23 at 0313, Until Discontinued, Nausea, Vomiting
Administer if oral route cannot be used.
Group 2: oxyCODONE (ROXICODONE) immediate release tablet 5 mgJump to med 5 mg, Oral, EVERY 6 HOURS PRN, Starting on Thu04/26/23 at 0822, Until Discontinued, Pain Moderate (4-6) Or oxyCODONE (ROXICODONE) immediate release tablet 10 mgJump to med 10 mg, Oral, EVERY 6 HOURS PRN, Starting on Thu04/26/23 at 08, Until Discontinued, Pain Severe (7-10) Care Teams (unrecognized sec tion and content) Communication Equipment Mechanic Relationship Specialty Start Date End Date Vickie Nuñez [address] [place] [id number] PCP - General Nurse Practitioner 04/22/23 Team Status: Active Member Role Status Dates NON STAFF Primary Care Provider Active Team Status: Inactive Member Role Status Dates NON STAFF Primary Care Provider Active Truong Concepcion DO Emergency Provider Active Goals (unrecognized section and content) Goals may be documented in a n alternate section FOR RECORDS PERTAINING TO PATIENTS WHO ARE OR HAVE BEEN ENROLLED IN A CHEMICAL DEPENDENCY/SUBSTANCEABUSE PROGRAM, SOME INFORMATION MAY BE OMITTED. This clinical summary was aggregated from multiple sources. Caution should be exercised in using it in the provision of clinical care. This summary normalizes information from multiple sources, and as a consequence, information in this document may materially change the coding, format and clinical context of patient data. In addition, data may be omitted in some cases. CLINICAL DECISIONS SHOULD BE BASED ON THE PRIMARY CLINICAL RECORDS. [facility] [employer] [facility]. provides no warranty or guarantee of the accuracy or completeness of information in this document.
--- NOTE | 2024-05-10 07:31 | ED_ITS ---
HPI HPI - General Adult General Chief complaint: Skin/Abscess/Foreign Body Stated complaint: BUMP ON BACK Time Seen by Provider: 05/10/24 07:21 Source: patient Mode of arrival: walk-in Limitations: no limitations History of Present Illness HPI narrative: Patient is a 29-year-old female who is presenting to the ER with chief complaint of a large abscess to the upper mid thoracic area. Patient states this has been getting larger in the past 4 days. Patient does work at a fast food restaurant, she works at [employer]. Patient is not diabetic. Patient has a large fluctuant abscess to the mid upper thoracic area, approximately 11 x 8 cm fluctuant. Patient has no fever, chills, nausea or vomiting. Patient currently states that they have no running water at home. Supplies and resources are given to the patient by his Rayna RN. All systems are negative except as noted/marked. All systems reviewed and otherwise negative. Nurses note and vital signs reviewed and patient is not hypoxic. General: The patient appears well and in no apparent distress. Patient is resting comfortably on cart. Patient is not toxic, lethargic, or listless Skin: Warm, dry, no pallor noted. There is no rash noted. No petechiae, purpura. Patient has 11 x 8 cm fluctuant abscess to the mid upper thoracic area, no surrounding cellulitis, inflammation noted. A few small pustules in the middle of the area. See procedure note. Head: Normocephalic, atraumatic Eye: Normal conjunctiva, no drainage, EOMI. PERRL Ears, Nose, Mouth, and Throat: oral mucosa is moist. Nares patent. Mouth without vesicles. Cardiovascular: Regular Rate and Rhythm, no murmur, gallop, rub Respiratory: Patient is in no distress, no accessory muscle use, lungs are clear to auscultation, no wheezing, rales or rhonchi Musculoskeletal: Patient has full range of motion of all of the extremities, no motor, sensory, or focal neurological deficits Neurological: A&O x4, normal speech Psychiatric: Cooperative Related Data Home Medications ?Medication ?Instructions ?Recorded ?Confirmed aripiprazole 10 mg tablet 10 mg PO DAILY 08/04/23 08/04/23 buspirone 10 mg tablet 10 mg PO BID 08/04/23 08/04/23 clonidine HCl 0.1 mg tablet 0.1 mg PO TID 08/04/23 08/04/23 cyclobenzaprine 10 mg tablet 10 mg PO TID 08/04/23 08/04/23 gabapentin 300 mg capsule 300 mg PO TID 08/04/23 08/04/23 hydroxyzine HCl 25 mg tablet 25 mg PO DAILY 08/04/23 08/04/23 Previous Rx's ?Medication ?Instructions ?Recorded sulfamethoxazole 800 1 tab PO BID 10 days #20 tabs 08/06/23 mg-trimethoprim 160 mg tablet (Bactrim DS) cephalexin 500 mg capsule 500 mg PO QID 7 days #28 caps 05/10/24 oxycodone-acetaminophen 5 mg-325 1 tab PO Q4H PRN pain #10 tabs 05/10/24 mg tablet (Percocet) sulfamethoxazole 800 1 tab PO TID 10 days #30 tabs 05/10/24 mg-trimethoprim 160 mg tablet (Bactrim DS) Allergies Allergy/AdvReac Type Severity Reaction Status Date / Time No Known Drug Allergies Allergy Verified 05/10/24 06:57 Opioid HPI Opioid Management Most Recent Opioid Data: Last Pain Scale 7 05/10/24 08:06 Last MAR Pain Assessment 05/10/24 08:06 Ur Phencyclidine Scrn Negative (NEGATIVE) 04/21/23 17:00 PFSH PFSH Social History Smoking status: Current every day smoker Exam Constitutional Vital Signs, click to edit/add: Last Vital Signs Temp 98.5 F 05/10/24 06:57 Pulse 103 H 05/10/24 06:57 Resp 16 05/10/24 06:57 BP 144/100 H 05/10/24 06:57 Pulse Ox 99 05/10/24 06:57 O2 Del Method Room Air 05/10/24 06:57 Course Vital Signs Vital signs: Vital Signs Temperature 98.5 F 05/10/24 06:57 Pulse Rate 103 H 05/10/24 06:57 Respiratory Rate 16 05/10/24 06:57 Blood Pressure 144/100 H 05/10/24 06:57 Pulse Oximetry 99 05/10/24 06:57 Oxygen Delivery Method Room Air 05/10/24 06:57 Temperature 98.5 F 05/10/24 06:57 Pulse Rate 103 H 05/10/24 06:57 Respiratory Rate 16 09/17/24 06:57 Blood Pressure 144/100 H 05/10/24 06:57 Pulse Oximetry 99 05/10/24 06:57 Oxygen Delivery Method Room Air 05/10/24 06:57 Medical Decision Making MDM Narrative Medical decision making narrative: Procedure note: Large of the mid thoracic fluctuant abscess Incision and drainage: Multiple alcohol swabs were used to prep the area. D rapes were placed to ensure isolation of the abscess and surrounding skin tissue. A regional field block was performed with 1% lidocaine and 0.5% Marcaine. Incision was made with an 11 blade to the full dimension of the abscess, moderate amount purulent material was expressed along with a small amount of serosanguineous approximately 15 cc was drained as well. Cultures were obtained and sent to the lab. The abscess was explored, the use of hemostats were used to break up the septum and loculations within the abscess. The cavity was irrigated with two 60 cc syringe of peroxide, and then 50 cc of normal saline. Plain, 0.25 packing was placed within the abscess. A dry sterile dressing was placed. Patient tolerated the procedure well and will be discharged with Keflex, Bactrim and a short course of analgesic medications. Patient is to follow-up in the next 2-3 days with PCP or ED to have area evaluated. Patient does have a PCP in [place]. Patient will follow-up with PCP, Dr. Diamond has been referred as well for surgery. Wound care education was done at bedside in the discharge paperwork. Rayna MICHAELS was at bedside during the entire procedure, assisting. Wound cultures were taken. Discharge Plan Discharge Stand Alone Forms: Work/School Release Chief Complaint: Skin/Abscess/Foreign Body Clinical Impression: Abscess Patient Disposition: Home, Self-Care Time of Disposition Decision: 08:06 Condition: Fair Prescriptions / Home Meds: New sulfamethoxazole-trimethoprim [Bactrim DS] 800-160 mg tablet 1 tab PO TID 10 Days Qty: 30 0RF cephalexin 500 mg capsule 500 mg PO QID 7 Days Qty: 28 0RF oxycodone-acetaminophen [Percocet] 5-325 mg tablet 1 tab PO Q4H PRN (Reason: pain) Qty: 10 0RF No Action aripiprazole 10 mg tablet 10 mg PO DAILY buspirone 10 mg tablet 10 mg PO BID clonidine HCl 0.1 mg tablet 0.1 mg PO TID cyclobenzaprine 10 mg tablet 10 mg PO TID gabapentin 300 mg capsule 300 mg PO TID hydroxyzine HCl 25 mg tablet 25 mg PO DAILY sulfamethoxazole-trimethoprim [Bactrim DS] 800-160 mg tablet 1 tab PO BID 10 Days Qty: 20 0RF Print Language: Danish Instructions: Wound Infection (ED), Abscess (ED) Additional Instructions: Use warm compresses, warm washcloth or heating pad every 1-2 hours to help increase inflammation and drainage. Do not burn yourself. Use intermittent heat for the next 3 to 5 days. Follow-up with your PCP or surgeon in the next 2 or 3 days to have reevaluation of wound and wound packing removed and changed. You may return back to the ER if you are not able to get into PCP or surgeon by Thursday. Take both antibiotics until they are finished. Use pain medication as needed. Do not drive or work 4 hours after you take pain medication. Follow-up with PCP. Referrals: Ezequiel Diamond MD [Physician] - 1 week GHASSAN AL [Primary Care Provider] - 1 week
[2024-05-10] MEDS: BUPIVACAINE HCL 0.5% PF 50 MG/10 ML VIAL 20 ML INJ (07:42)
[2024-05-10] MEDS: LIDOCAINE HCL 1% 100 MG/10 ML MDV INJ (07:42)
[2024-05-10] MEDS: CEPHALEXIN 500 MG CAPSULE PO (08:06)
[2024-05-10] MEDS: OXYCODONE HCL/ACETAMINOPHEN 5MG/325MG 1 TAB PO (08:06)
[2024-05-10] MEDS: SULFAMETHOXAZOLE/TRIMETHOPRIM 800-160 MG TABLET 1 TAB PO (08:07)
== END 2024-05-10 08:17 | disposition home or self-care (01) ==
PROVIDERS: Emergency Provider Emergency Medicine; PCP Nurse Practitioner Family
DX: L02.212 Cutaneous abscess of back [any part, except buttock and flank] (principal); F17.200 Nicotine dependence, unspecified, uncomplicated
CPT/HCPCS: 10060; 87070; 87075; 99284; J0665

== ENCOUNTER 2024-05-14 15:58 | Emergency (ER) | payer SELFPAY ==
--- OUTSIDE RECORDS SUMMARY | 2024-05-14 16:07 | XMS_ITS | CCD ---
Author Organization [facility] Care Team Providers Care Medicine Tech Name Role Phone NEAL HAMMOND Referring Unavailable NEAL HAMMOND Primary Care Unavailable DR NANI GUNTER Admitting Unavailable JANI, DR CARDOZA Attending Unavailable THANH TRISTAN Primary Care Unavailable JANI, DR CARDOZA Consulting Unavailable Vickie Nuñez Primary Care Provider [phone] NON STAFF Primary Care Provider UnavailDO Truong De Guzman Emergency Provider Truong Concepcion Attending Unavailable Truong Concepcion Admitting [...] release tablet 5 mg polyethylene glycol 3350 13558 mg powder for oral solution (1 source) [...] aPTT Coag (PPP) [Time] 30.5 s 25.1-36.5 [facility] Comment on above: A hematocrit value g reater than 55% may lead to inaccurate results in coagulation testing. Patients having hematocrit values >55% require a special collection tube for coagulation studies. Please contact the laboratory at [phone] for redraw instructions. Alanine aminotransferase [En zymatic activity/volume] in Serum or PlasmaOrdered By: Truong Concepcion on 05-21-2023 ALT [Catalytic activity/Vol] 30 U/L 7-52 [facility] Albumin [Mass/volume] in Ser um or Plasma by Bromocresol green (BCG) dye binding methoOrdered By: Truong Concepcion on 05-21-2023 Albumin BCG dye [Mass/Vol] 4.1 g/dL 3.5-5.7 [facility] Alkaline phosphatase [Enzyma tic activity/volume] in Serum or PlasmaOrdered By: Truong Concepcion on 05-21-2023 ALP [Catalytic activity/Vol] 91 U/L 34-104 [facility] Amphetamine Screen Ql (U)Ord ered By: Truong Concepcion on 05-21-2023 Amphetamines Ql (U) Positive Negative [facility] Aspartate aminotransferase [ Enzymatic activity/volume] in Serum or PlasmaOrdered By: Truong Concepcion on 05-21-2023 AST [Catalytic activity/Vol] 30 U/L 13-39 [facility] Automated epithelial cells c ount in urine sediment (number/area)Ordered By: Truong Concepcion on 05-21-2023 Epithelial cells Auto (Urine sed) [#/Area] 20-49 [HPF] 0-2 [facility] Automated erythrocytes count in urine sediment (number/area)Ordered By: Truong Concepcion on 05-21-2023 RBC Auto (Urine sed) [#/Area] 0-1 [HPF] 0-4 [facility] Automated leukocytes count i n urine sediment (number/area)Ordered By: Truong Concepcion on 05-21-2023 WBC Auto (Urine sed) [#/Area] 0-1 [HPF] 0-4 [facility] Automated urine color determ inationOrdered By: Truong Concepcion on 05-21-2023 Color (U) Yellow Normal Yellow [facility] Comment on above: Order Comment: Name Collection Type:: Clean-Voided Midstream Performed By: #### U HCG, ADDONUAPLUS ####[facility] [address] [place] [address] [facility] Automated urine hyaline cast s count (number/volume)Ordered By: Truong Concepcion on 05-21-2023 Hyaline casts Auto (U) [#/Vol] None seen [LPF] 0-1 [facility] B-Type Natriuretic Peptideon 05-21-2023 Natriuretic peptide B (Bld) [Mass/Vol] 9.0 pg/mL Normal 5-100 [facility] Comment on above: Result Comment: PERF ORMED BY: [facility] [address] [place] [address] PATHOLOGIST [employer]LOADER OBI MORRIS M.D. Performed By: #### P T, LACTIC, CMP, HS TROP, BNP, MG, CK, PTT ####[facility] [address] [place] [address] [facility] Barbiturates [Presence] in U rine by Screen methodOrdered By: Truong Concepcion on 05-21-2023 Barbiturates Screen Ql (U) Negative Negative [facility] Basophils Auto (Bld) [#/Vol] Ordered By: Truong Concepcion on 05-21-2023 Basophils (Bld) [#/Vol] 0.1 10*3/uL 0.0-0.2 [facility] Basophils/100 WBC Auto (Bld) Ordered By: Truong Concepcion on 05-21-2023 Basophils/100 WBC (Bld) 0.6 % . [facility] Benzodiazepines Screen Ql (U )Ordered By: Truong Concepcion on 05-21-2023 Benzodiazepines Ql (U) Negative Negative [facility] Benzoylecgonine [Presence] i n Urine by Screen methodOrdered By: Truong Concepcion on 05-21-2023 Benzoylecgonine Screen Ql (U) Positive Negative [facility] Bilirubin Test strip Ql (U)O rdered By: Truong Concecpion on 05-21-2023 Bilirubin Ql (U) Negative Negative [facility] Bilirubin.total [Mass/volume ] in Serum or PlasmaOrdered By: Truong Concepcion on 05-21-2023 Bilirubin [Mass/Vol] 0.4 mg/dL 0.3-1.[address] [facility] Calcium [Mass/volume] in Ser um or PlasmaOrdered By: Truong Concepcion on 05-21-2023 Calcium [Mass/Vol] 9.2 mg/dL 8.6-10.3 [facility] Cannabinoids [Presence] in U rine by Screen methodOrdered By: Truong Concepcion on 05-21-2023 Cannabinoids Screen Ql (U) Negative Negative [facility] Comment on above: These are unconfirme d results and should not be used for legal purposes. Drug Cut-Off Concentration: AMPH 1000 ng/mL AMY 200 ng/mL FANNY 200 ng/mL COCM 300 ng/mL OP 300 ng/mL PCP 25 ng/mL THC 20 ng/mL Carbon dioxide, total [Moles /volume] in Serum or PlasmaOrdered By: Truong Concepcion on 05-21-2023 CO2 [Moles/Vol] 28.3 mmol/L 21.0-31.[address] [facility] Casts typing in urine sedime nt by light microscopyOrdered By: Truong Concepcion on 05-21-2023 Casts LM Nom (Urine sed) None seen [LPF] None Seen [facility] Chloride [Moles/volume] in S toyin or PlasmaOrdered By: Truong Concepcion on 05-21-2023 Chloride [Moles/Vol] 104 mmol/L 98-[address] [facility] Complete Blood Count Auto Di ffon 05-21-2023 Basophils (Bld) [#/Vol] 0.1 10*3/uL Normal 0.0-0.2 [facility] Comment on above: Result Comment: PERF ORMED BY: [place] [address] PATHOLOGIST [employer]LOADER OBI MORRIS M.D. Performed By: #### C BC #### [address] Basophils/100 WBC (Bld) 0.6 % Normal . [facility] Comment on above: Performed By: #### C BC #### [place] [address] [place] Eosinophils (Bld) [#/Vol] 0.2 10*3/uL Normal 0.0-0.45 [facility] Comment on above: Performed By: #### C BC #### [place] [address] [place] Eosinophils/100 WBC (Bld) 2.2 % Normal . [facility] Comment on above: Performed By: #### C BC #### [address] Erythrocyte distribution width (RBC) [Ratio] 13.2 % Normal 11.9-15.3 [facility] Comment on above: Performed By: #### C BC #### [facility] [address] Hematocrit (Bld) [Volume fraction] 33.2 % Low 34.0-46.4 [facility] Comment on above: Performed By: #### C BC #### [facility] [address] Hemoglobin (Bld) [Mass/Vol] 11.4 g/dL Low 11.8-15.4 [facility] Comment on above: Performed By: #### C BC #### [facility] [address] Lymphocytes (Bld) [#/Vol] 2.8 10*3/uL Normal 1.00-4.8 [facility] Comment on above: Performed By: #### C BC #### [address] Lymphocytes/100 WBC (Bld) 27.4 % Normal . [facility] Comment on above: Performed By: #### C BC #### [facility] [address] MCH (RBC) [Entitic mass] 30.4 pg Normal 24.7-34.3 [facility] Comment on above: Performed By: #### C BC #### [address] MCV (RBC) [Entitic vol] 88.8 fL Normal 80-100 [facility] Comment on above: Performed By: #### C BC #### [address] Mean Corpuscular HGB Conc 34.2 g/dL Normal 32.0-35.0 [facility] Comment on above: Performed By: #### C BC #### [address] Monocytes (Bld) [#/Vol] 0.7 10*3/uL Normal 0.0-0.8 [facility] Comment on above: Performed By: #### C BC #### [facility] [address] [place] [address] [place] Monocytes/100 WBC (Bld) 20.95 % High 0.00-20.00 [facility] Comment on above: Result Comment: For adults in ED, MDW > 20.0 may be associated with a higher risk of sepsis during the first 12 hrs of hospital admission Performed By: #### C BC #### [facility] [address] Monocytes/100 WBC (Bld) 7.3 % Normal . [facility] Comment on above: Performed By: #### C BC #### [address] Neutrophils (Bld) [#/Vol] 6.4 10*3/uL Normal 1.8-7.7 [facility] Comment on above: Performed By: #### C BC #### [address] Neutrophils/100 WBC (Bld) 62.5 % Normal . [facility] Comment on above: Performed By: #### C BC #### [address] NRBC% 0.0 /100{WBC} Normal 0-0.5 [facility] Comment on above: Performed By: #### C BC #### [address] Platelet mean volume (Bld) [Entitic vol] 7.5 fL Normal 6.3-10.7 [facility] Comment on above: Performed By: #### C BC #### [place] [address] [place] Platelets (Bld) [#/Vol] 427 10*3/uL Normal 150-450 [facility] Comment on above: Performed By: #### C BC #### [place] [address] [place] RBC (Bld) [#/Vol] 3.74 10*6/uL Normal 3.60-5.00 [facility] Comment on above: Performed By: #### C BC #### [address] WBC (Bld) [#/Vol] 10.2 10*3/uL Normal 3.8-11.6 [facility] Comment on above: Performed By: #### C BC #### [address] Comprehensive Metabolic Pane patrice 05-21-2023 Albumin [Mass/Vol] 4.1 g/dL Normal 3.5-5.7 [facility] Comment on above: Performed By: #### P T, LACTIC, CMP, HS TROP, BNP, MG, CK, PTT #### [address] Albumin/Globulin [Mass ratio] 1.2 {ratio} Normal [facility] Comment on above: Performed By: #### P T, LACTIC, CMP, HS TROP, BNP, MG, CK, PTT #### [address] ALP [Catalytic activity/Vol] 91 U/L Normal 34-104 [facility] Comment on above: Performed By: #### P T, LACTIC, CMP, HS TROP, BNP, MG, CK, PTT #### [address] ALT [Catalytic activity/Vol] 30 U/L Normal 7-52 [facility] Comment on above: Performed By: #### P T, LACTIC, CMP, HS TROP, BNP, MG, CK, PTT #### [address] Anion gap [Moles/Vol] 5.3 mmol/L Low 6.0-15.0 [facility] Comment on above: Performed By: #### P T, LACTIC, CMP, HS TROP, BNP, MG, CK, PTT #### [address] AST [Catalytic activity/Vol] 30 U/L Normal 13-39 [facility] Comment on above: Performed By: #### P T, LACTIC, CMP, HS TROP, BNP, MG, CK, PTT #### [facility] [address] Bilirubin [Mass/Vol] 0.4 mg/dL Normal 0.3-1.[address] [facility] Comment on above: Performed By: #### P T, LACTIC, CMP, HS TROP, BNP, MG, CK, PTT #### [facility] [address] Calcium [Mass/Vol] 9.2 mg/dL Normal 8.6-10.3 [facility] Comment on above: Performed By: #### P T, LACTIC, CMP, HS TROP, BNP, MG, CK, PTT #### [facility] [address] Chloride [Moles/Vol] 104 mmol/L Normal 98-[address] [facility] Comment on above: Performed By: #### P T, LACTIC, CMP, HS TROP, BNP, MG, CK, PTT #### [facility] [address] CO2 [Moles/Vol] 28.3 mmol/L Normal 21.0-31.[address] [facility] Comment on above: Performed By: #### P T, LACTIC, CMP, HS TROP, BNP, MG, CK, PTT #### [facility] [address] Creatinine [Mass/Vol] 0.72 mg/dL Normal 0.60-1.20 [facility] Comment on above: Performed By: #### P T, LACTIC, CMP, HS TROP, BNP, MG, CK, PTT #### [facility] [address] [place] [address] [place] Creatinine Clr Calc Pharmacy 135.61 Normal [facility] Comment on above: Performed By: #### P T, LACTIC, CMP, HS TROP, BNP, MG, CK, PTT #### [address] GFR/1.73 sq M.predicted MDRD (S/P/Bld) [Vol rate/Area] mL/min/{1.73_m2} Normal [facility] Comment on above: Performed By: #### P T, LACTIC, CMP, HS TROP, BNP, MG, CK, PTT #### [facility] [address] Globulin (S) [Mass/Vol] 3.3 g/dL [facility] Comment on above: Performed By: #### P T, LACTIC, CMP, HS TROP, BNP, MG, CK, PTT #### [facility] [address] Glucose [Mass/Vol] 120 mg/dL High 70-100 [facility] Comment on above: Result Comment: [facility] Glucose Reference Range is dependent on time and content of last meal. Glucose of more than 200 mg/dL in a nonstressed, ambulatory subject supports the diagnosis of Diabetes Mellitus. ADA recommended reference range Performed By: #### P T, LACTIC, CMP, HS TROP, BNP, MG, CK, PTT #### [facility] [address] [place] [address] Potassium [Moles/Vol] 3.6 mmol/L Normal 3.5-5.1 [facility] Comment on above: Performed By: #### P T, LACTIC, CMP, HS TROP, BNP, MG, CK, PTT #### [address] Protein [Mass/Vol] 7.4 g/dL Normal 6.4-8.9 [facility] Comment on above: Performed By: #### P T, LACTIC, CMP, HS TROP, BNP, MG, CK, PTT #### [facility] [address] Sodium [Moles/Vol] 134 mmol/L Low 136-145 [facility] Comment on above: Performed By: #### P T, LACTIC, CMP, HS TROP, BNP, MG, CK, PTT #### [facility] [address] Urea nitrogen [Mass/Vol] 8 mg/dL Normal 7-25 [facility] Comment on above: Performed By: #### P T, LACTIC, CMP, HS TROP, BNP, MG, CK, PTT #### [facility] [address] [place] [id number] [place] Creatine Kinaseon 05-21-2023 CK [Catalytic activity/Vol] 398 U/L High [facility] Comment on above: Performed By: #### P T, LACTIC, CMP, HS TROP, BNP, MG, CK, PTT ####[facility] Creatine kinase [Enzymatic a ctivity/volume] in Serum or PlasmaOrdered By: Truong Concepcion on 05-21-2023 CK [Catalytic activity/Vol] 398 U/L [facility] Creatinine [Mass/volume] in Serum or PlasmaOrdered By: Truong Concepcion on 05-21-2023 Creatinine [Mass/Vol] 0.72 mg/dL 0.60-1.20 [facility] Dipstick and Microscopicon 0 05-21-2023 Appearance (U) Cloudy Critically abnormal Clear [facility] Comment on above: Order Comment: Name Collection Type:: Clean-Voided Midstream Performed By: #### U HCG, ADDONUAPLUS ####[place] [id number] [address] Bacteria,Urine Rare High None Seen [facility] Comment on above: Order Comment: Name Collection Type:: Clean-Voided Midstream Performed By: #### U HCG, ADDONUAPLUS ####[address] Bilirubin,Urine Negative Normal Negative [facility] Comment on above: Order Comment: Name Collection Type:: Clean-Voided Midstream Performed By: #### U HCG, ADDONUAPLUS ####[place] [id number] [address] Glucose Ql (U) Normal Normal Normal [facility] Comment on above: Order Comment: Name Collection Type:: Clean-Voided Midstream Performed By: #### U HCG, ADDONUAPLUS ####[address] Hyaline Casts,Urine None Seen Normal 0-1 [facility] Comment on above: Order Comment: Name Collection Type:: Clean-Voided Midstream Performed By: #### U HCG, ADDONUAPLUS ####[address] [address] [facility] Ketones Ql (U) Negative Normal Negative [facility] Comment on above: Order Comment: Name Collection Type:: Clean-Voided Midstream Performed By: #### U HCG, ADDONUAPLUS ####[address] [address] [facility] Leukocyte esterase Test strip Ql (U) Negative Normal Negative [facility] Comment on above: Order Comment: Name Collection Type:: Clean-Voided Midstream Performed By: #### U HCG, ADDONUAPLUS ####[address] [address] [facility] Nitrite,Urine Negative Normal Negative [facility] Comment on above: Order Comment: Name Collection Type:: Clean-Voided Midstream Performed By: #### U HCG, ADDONUAPLUS ####[address] [address] [facility] Occult Blood,Urine Negative Normal Negative [facility] Comment on above: Order Comment: Name Collection Type:: Clean-Voided Midstream Performed By: #### U HCG, ADDONUAPLUS ####[address] [address] [facility] Other Casts,Urine None Seen Normal None Seen [facility] Comment on above: Order Comment: Name Collection Type:: Clean-Voided Midstream Performed By: #### U HCG, ADDONUAPLUS ####[address] [address] [facility] Protein,Urine Negative Normal Negative [facility] Comment on above: Order Comment: Name Collection Type:: Clean-Voided Midstream Performed By: #### U HCG, ADDONUAPLUS ####[address] [address] [facility] RBC LM.HPF (Urine sed) [#/Area] 0 /[HPF] Normal 0-4 [facility] Comment on above: Order Comment: Name Collection Type:: Clean-Voided Midstream Performed By: #### U HCG, ADDONUAPLUS ####[address] Specificy [place],Urine 1.011 Normal 1.001-1.030 [facility] Comment on above: Order Comment: Name Collection Type:: Clean-Voided Midstream Performed By: #### U HCG, ADDONUAPLUS ####[address] Squamous Epithelial Cell,Urine 20-49 High 0-2 [facility] Comment on above: Order Comment: Name Collection Type:: Clean-Voided Midstream Performed By: #### U HCG, ADDONUAPLUS ####[address] Urobilinogen,Urine Normal Normal Normal [facility] Comment on above: Order Comment: Name Collection Type:: Clean-Voided Midstream Performed By: #### U HCG, ADDONUAPLUS ####[address] WBC LM.HPF (Urine sed) [#/Area] 0 /[HPF] Normal 0-4 [facility] Comment on above: Order Comment: Name Collection Type:: Clean-Voided Midstream Performed By: #### U HCG, ADDONUAPLUS ####[address] Drug Screen,Urineon 05-21-20 23 Amphetamine Screen,Urine Positive High Negative [facility] Comment on above: Performed By: #### U RDS #### [facility] [address] [place] [address] [place] Barbiturate Screen,Urine Negative Normal Negative [facility] Comment on above: Performed By: #### U RDS #### [facility] [address] [place] [address] [place] Benzodiazepines Screen,Urine Negative Normal Negative [facility] Comment on above: Performed By: #### U RDS #### [facility] [address] [place] [address] [place] Cannabinoid Screen,Urine Negative Normal Negative [facility] Comment on above: Result Comment: Thes e are unconfirmed results and should not be used for legal purposes. Drug Cut-Off Concentration: AMPH 1000 ng/mL AMY 200 ng/mL FANNY 200 ng/mL COCM 300 ng/mL OP 300 ng/mL PCP 25 ng/mL THC 20 ng/mL PERFORMED BY: [place] [address] PATHOLOGIST [employer]ER [employer]LOADER OBI MORRIS M.D. Performed By: #### U RDS #### [address] Cocaine Screen,Urine Positive High Negative [facility] Comment on above: Performed By: #### U RDS #### [address] Opiate Screen,Urine Negative Normal Negative [facility] Comment on above: Performed By: #### U RDS #### [place] [address] [place] Phencyclidine Screen,Urine Negative Normal Negative [facility] Comment on above: Performed By: #### U RDS #### [address] ECG 12 lead ECGon 05-21-2023 ECG 12 lead ECG [facility] [place] [address] [place] [address] Electrocardiograph Report Signed Patient: Tracy Bennett MR#: [id number] : 1995 Acct:[id number] Age/Sex: 28 / F ADM Date: 05/21/23 Loc: ER Room: Type: [facility] ER Attending Dr: Ordering Provider: Truong Concepcion [...] Sinus tachycardia Confirmed by Truong CONCEPCION DO ([id number]) on 05/21/2023 12:21:01 PM Referred By: Electronically Signed By:Truong CONCEPCION DO Transcribed By: MUS Signed By Truong Concepcion, 0 05/21/23 1221 Normal [facility] Eosinophils Auto (Bld) [#/Vo l]Ordered By: Truong Concepcion on 05-21-2023 Eosinophils (Bld) [#/Vol] 0.2 10*3/uL 0.0-0.45 [facility] Eosinophils/100 WBC Auto (Bl d)Ordered By: Truong Concepcion on 05-21-2023 Eosinophils/100 WBC (Bld) 2.2 % . [facility] Erythrocyte distribution wid th Auto (RBC) [Ratio]Ordered By: Truong Concepcion on 05-21-2023 Erythrocyte distribution width (RBC) [Ratio] 13.2 % 11.9-15.3 [facility] Globulin Calc (S) [Mass/Vol] Ordered By: Truong Concepcion on 05-21-2023 Globulin (S) [Mass/Vol] 3.3 g/dL [facility] Glucose [Mass/volume] in Ser um or PlasmaOrdered By: Truong Concepcion on 05-21-2023 Glucose [Mass/Vol] 120 mg/dL 70-100 [facility] Comment on above: ADA recommended refe rence rangeRandom Glucose Reference Range is dependent on time and content of last meal. Glucose of more than 200 mg/dL in a nonstressed, ambulatory subject supports the diagnosis of Diabetes Mellitus. HCG ( test) IA.rapi d Ql (U)Ordered By: Truong Concepcion on 05-21-2023 HCG ( test) Ql (U) Negative [facility] HCG,Urineon 05-21-2023 Beta HCG ( test) Ql (U) Negative Normal [facility] Comment on above: Order Comment: Name Collection Type:: Clean-Voided Midstream Result Comment: PERF ORMED BY: [facility] [address] [place] [address] PATHOLOGIST [employer]LOADER OBI MORRIS M.D. Performed By: #### U HCG, ADDONUAPLUS ####[facility] Hematocrit Auto (Bld) [Volum e fraction]Ordered By: Truong Concepcion on 05-21-2023 Hematocrit (Bld) [Volume fraction] 33.2 % 34.0-46.4 [facility] Hemoglobin [Mass/volume] in BloodOrdered By: Truong Concepcion on 05-21-2023 Hemoglobin (Bld) [Mass/Vol] 11.4 g/dL 11.8-15.4 [facility] INR in Platelet poor plasma by Coagulation assayOrdered By: Truong loco on 05-21-2023 INR Coag (PPP) [Relative time] 1.2 {INR} [facility] Comment on above: INR Therapeutic Rang [...] on 05-21-2023 Ketones (U) [Mass/Vol] Negative Negative [facility] Lactate [Moles/volume] in Se rum or PlasmaOrdered By: Truong Concepcion on 05-21-2023 Lactate [Moles/Vol] 1.0 mmol/L 0.5-2.2 [facility] Lactic Acidon 05-21-2023 Lactate [Moles/Vol] 1.0 mmol/L Normal 0.5-2.2 [facility] Comment on above: Result Comment: PERF ORMED BY: [place] [address] PATHOLOGIST [employer]LOADER OBI MORRIS M.D. Performed By: #### P T, LACTIC, CMP, HS TROP, BNP, MG, CK, PTT #### [address] Leukocytes [#/volume] correc shlomo for nucleated erythrocytes in Blood by Automated counOrdered By: [facility]23 WBC corrected for nucl RBC Auto (Bld) [#/Vol] 10.2 10*3/uL 3.8-11.6 [facility] Lymphocytes Auto (Bld) [#/Vo l]Ordered By: Truong Concepcion on 05-21-2023 Lymphocytes (Bld) [#/Vol] 2.8 10*3/uL 1.00-4.8 [facility] Lymphocytes/100 WBC Auto (Bl d)Ordered By: Truong Concepcion on 05-21-2023 Lymphocytes/100 WBC (Bld) 27.4 % . [facility] MCH Auto (RBC) [Entitic mass ]Ordered By: Truong Concepcion on 05-21-2023 MCH (RBC) [Entitic mass] 30.4 pg 24.7-34.3 [facility] MCHC Auto (RBC) [Mass/Vol]Or dered By: Truong Concepcion on 05-21-2023 MCHC (RBC) [Mass/Vol] 34.2 g/dL 32.0-35.0 [facility] MCV Auto (RBC) [Entitic vol] Ordered By: Truong Concepcion on 05-21-2023 MCV (RBC) [Entitic vol] 88.8 fL 80-100 [facility] Magnesiumon 05-21-2023 Magnesium [Mass/Vol] 1.9 mg/dL Normal 1.9-2.[address] [facility] Comment on above: Result Comment: PERF ORMED BY: [place] [address] PATHOLOGIST [employer] OBI MORRIS M.D. Performed By: #### P T, LACTIC, CMP, HS TROP, BNP, MG, CK, PTT #### [facility] [address] [place] [address] Magnesium [Mass/volume] in S toyin or PlasmaOrdered By: Truong Concepcion on 05-21-2023 Magnesium [Mass/Vol] 1.9 mg/dL 1.9-2.[address] [facility] Monocyte distribution width [Entitic volume] in Blood by AutomatedOrdered By: Truong Concepcion on 05-21-2023 Monocyte distribution width Auto (Bld) [Entitic vol] 20.95 % 0.00-20.00 [facility] Comment on above: For adults in ED, MD W > 20.0 may be associated with a higher risk of sepsis during the first 12 hrs of hospital admission Monocytes Auto (Bld) [#/Vol] Ordered By: Truong Concepcion on 05-21-2023 Monocytes (Bld) [#/Vol] 0.7 10*3/uL 0.0-0.8 [facility] Monocytes/100 WBC Auto (Bld) Ordered By: Truong Concepcion on 05-21-2023 Monocytes/100 WBC (Bld) 7.3 % . [facility] Natriuretic peptide B [Mass/ Vol]Ordered By: Truong Concepcion on 05-21-2023 Natriuretic peptide B (Bld) [Mass/Vol] 9.0 pg/mL 5-100 [facility] Neutrophils Auto (Bld) [#/Vo l]Ordered By: Truong Concepcion on 05-21-2023 Neutrophils (Bld) [#/Vol] 6.4 10*3/uL 1.8-7.7 [facility] Neutrophils/100 WBC Auto (Bl d)Ordered By: Truong Concepcion on 05-21-2023 Neutrophils/100 WBC (Bld) 62.5 % . [facility] Nitrite Test strip Ql (U)Ord ered By: Truong Concepcion on 05-21-2023 Nitrite Ql (U) Negative Negative [facility] No Panel InformationOrdered By: Truong Concepcion on 05-21-2023 Estimated GFR (CKD-EPI) > 60.0 mL/Min [facility] Creatinine Clearance (Chem 135.61 [facility] Nucleated erythrocytes [Pres ence] in Blood by Automated countOrdered By: Truong Concepcion on 05-21-2023 Nucleated RBC Auto Ql (Bld) 0.0 /100{WBC} 0-0.5 [facility] Opiates [Presence] in Urine by Screen methodOrdered By: Truong Concepcion on 05-21-2023 Opiates Screen Ql (U) Negative Negative [facility] Partial Thromboplastin Timeo n 05-21-2023 aPTT Coag (Bld) [Time] 30.5 s Normal 25.1-36.5 [facility] Comment on above: Result Comment: A he matocrit value greater than 55% may lead to inaccurate results in coagulation testing. Patients having hematocrit values >55% require a special collection tube for coagulation studies. Please contact the laboratory at [phone] for redraw instructions. PERFORMED BY: [facility] [address] [place] [address] PATHOLOGIST [employer] OBI MORRIS M.D. Performed By: #### P T, LACTIC, CMP, HS TROP, BNP, MG, CK, PTT #### [address] [address] [facility] Phencyclidine Screen Ql (U)O rdered By: Truong Concepcion on 05-21-2023 Phencyclidine Ql (U) Negative Negative [facility] Platelet mean volume Auto (B ld) [Entitic vol]Ordered By: Truong Concepcion on 05-21-2023 Platelet mean volume (Bld) [Entitic vol] 7.5 fL 6.3-10.7 [facility] Platelets Auto (Bld) [#/Vol] Ordered By: Truong Concepcion on 05-21-2023 Platelets (Bld) [#/Vol] 427 10*3/uL 150-450 [facility] Potassium [Moles/volume] in Serum or PlasmaOrdered By: Truong Concepcion on 05-21-2023 Potassium [Moles/Vol] 3.6 mmol/L 3.5-5.1 [facility] Protein Auto test strip (U) [Mass/Vol]Ordered By: Truong Concepcion on 05-21-2023 Protein (U) [Mass/Vol] Negative Negative [facility] Protein [Mass/volume] in Ser um or PlasmaOrdered By: Truong Concepcion on 05-21-2023 Protein [Mass/Vol] 7.4 g/dL 6.4-8.9 [facility] Prothrombin Time INRon 05-21 INR Coag (PPP) [Relative time] 1.2 {INR} Normal [facility] Comment on above: Result Comment: INR [...] HS TROP, BNP, MG, CK, PTT #### [facility] [address] [place] [id number] [facility] PT Coag (PPP) [Time] 14.2 s High 9.0-12.[address] [facility] Comment on above: Result Comment: A he matocrit value greater than 55% may lead to inaccurate results in coagulation testing. Patients having hematocrit values >55% require a special collection tube for coagulation studies. Please contact the laboratory at [phone] for redraw instructions. Performed By: #### P T, LACTIC, CMP, HS TROP, BNP, MG, CK, PTT #### [facility] [address] [place] [id number] [facility] Prothrombin time (PT)Ordered By: Truong Concepcion on 05-21-2023 PT Coag (PPP) [Time] 14.2 s 9.0-12.[address] [facility] Comment on above: A hematocrit value g reater than 55% may lead to inaccurate results in coagulation testing. Patients having hematocrit values >55% require a special collection tube for coagulation studies. Please contact the laboratory at [phone] for redraw instructions. RBC Auto (Bld) [#/Vol]Ordere d By: Truong Concepcion on 05-21-2023 RBC (Bld) [#/Vol] 3.74 10*6/uL 3.60-5.00 [facility] Serum or plasma albumin/glob ulin mass ratioOrdered By: Truong Concepcion on 05-21-2023 Albumin/Globulin [Mass ratio] 1.2 {ratio} [facility] Serum or plasma anion gap de terminationOrdered By: Truong Concepcion on 05-21-2023 Anion gap [Moles/Vol] 5.3 mmol/L 6.0-15.0 [facility] Sodium [Moles/volume] in Ser um or PlasmaOrdered By: Truong Concepcion on 05-21-2023 Sodium [Moles/Vol] 134 mmol/L 136-145 [facility] Specific gravity Auto test s trip (U) [Rel density]Ordered By: Truong Concepcion on 05-21-2023 Specific gravity (U) [Rel density] 1.011 1.001-1.030 [facility] Troponin I High Sensitivityo n 05-21-2023 Troponin I High Sensitivity 3.0 pg/mL Normal 0.0-15.0 [facility] Comment on above: Result Comment: PERF ORMED BY: [place] [address] PATHOLOGIST [employer] OBI MORRIS M.D. Performed By: #### P T, LACTIC, CMP, HS TROP, BNP, MG, CK, PTT ####[facility] Troponin I.cardiac [Mass/vol ume] in Serum or Plasma by Detection limit <= 0.01 ng/Ordered By: Truong Concepcion on 05-21-2023 Troponin I.cardiac DL <= 0.01 ng/mL [Mass/Vol] 3.0 pg/mL 0.0-15.0 [facility] US venous duplex LE LTon US venous duplex LE LT [place] [address] Ultrasound Report Signed Patient: Tracy Bennett MR#: [id number] : 1995 Acct:[id number] Age/Sex: 28 / F ADM Date: 05/21/23 Loc: ER Room: Type: [facility] ER Attending Dr: Ordering Provider: Truong Concepcion [...] Aroldo Johnson MD05/21/2023 2:40 PM Dictation Location: [place] [address] Tech: Nuvia Muller Transcribed By: MIN 05/21/23 144 Dictated By: Aroldo Johnson MD 05/21/23 144 Signed By: 05/21/23 1440 Normal [facility] Urea nitrogen [Mass/volume] in Serum or PlasmaOrdered By: Truong Concepcion on 05-21-2023 Urea nitrogen [Mass/Vol] 8 mg/dL 7 [facility] Urine bacteria detection by automated methodOrdered By: Truong Concepcion on 05-21-2023 Bacteria Auto Ql (U) Rare None Seen [facility] Urine clarity by refractomet ry automatedOrdered By: Truong Concepcion on 05-21-2023 Clarity Refractometry automated (U) Cloudy Clear [facility] Urine glucose measurement by automated test strip (mass/volume)Ordered By: Truong Concepcion on 05-21-2023 Glucose Auto test strip (U) [Mass/Vol] Normal mg/dL Normal [facility] Urine hemoglobin detection b y automated test stripOrdered By: Truong Concepcion on 05-21-2023 Hemoglobin Auto test strip Ql (U) Negative Negative [facility] Urine leukocyte esterase det ection by automated test stripOrdered By: Truong Concepcion on 05-21-2023 Leukocyte esterase Auto test strip Ql (U) Negative Negative [facility] Urine pH measurement by auto mated test stripOrdered By: Truong Concepcion on 05-21-2023 pH (U) 6.0 [pH] Normal 5.0-9.0 [facility] Comment on above: Order Comment: Name Collection Type:: Clean-Voided Midstream Performed By: #### U HCG, ADDONUAPLUS ####[facility] [address] [place] [address] [facility] Urobilinogen Auto test strip (U) [Mass/Vol]Ordered By: Truong Concepcion on 05-21-2023 Urobilinogen (U) [Mass/Vol] Normal mg/dL Normal [facility] WBC Auto (Bld) [#/Vol]Ordere d By: Truong Concepcion on 05-21-2023 WBC (Bld) [#/Vol] 10.2 10*3/uL 3.8-11.6 [facility] XR foot LT min 3V*on 023 XR foot LT min 3V* [place] [address] XRay Report Signed Patient: Tracy Bennett MR#: [id number] : 1995 Acct:[id number] Age/Sex: 28 / F ADM Date: 05/21/23 Loc: ER Room: Type: [facility] ER Attending Dr: Copies to: Truong Concepcion DO Ordering Provider: Truong Concepcion DO Date of Service: 05/21/23 XR/XR chest 2V*: Skin/Abscess/Foreign Body ([id number]) XR/XR foot LT min 3V*: Skin/Abscess/Foreign Body ([id number]) XR/XR tibia fibula LT 2V*: Skin/Abscess/Foreign Body [...] Eric Stewart M.D.05/21/2023 7:56 AM Dictation Location: [place] [address] Transcribed By: [facility] 05/21/23 075 Dictated By: Eric Stewart DO 05/21/23 0754 Signed By: 05/21/23 075 [facility] Basic Metabolic Panel w/ Ref aditya to MGon 04-27-2023 Anion gap [Moles/Vol] 12 mmol/L 9 - 17 mmol/L [facility] Calcium [Mass/Vol] 9.1 mg/dL 8.6 - 10. 4 mg/dL [facility] Chloride [Moles/Vol] 105 mmol/L 98 - 10 7 mmol/L [facility] CO2 [Moles/Vol] 21 mmol/L 20 - 31 mmol/L [facility] Creatinine [Mass/Vol] 0.8 mg/dL 0.5 - 0.9 mg/dL [facility] GFR/1.73 sq M.predicted MDRD (S/P/Bld) [Vol rate/Area] - PINF [facility] Comment on above: These results are not [...] 100 mg/dL High 70 - 99 mg/dL [facility] Interpretation and review of laboratory results Abnormal [facility] Potassium [Moles/Vol] 3.6 mmol/L Low 3.7 - 5.3 mmol/L [facility] Sodium [Moles/Vol] 138 mmol/L 135 - 144 mmol/L [facility] Urea nitrogen [Mass/Vol] 9 mg/dL 6 - 20 mg/dL [facility] CBC with Auto Differentialon 04-27-2023 Basophils (Bld) [#/Vol] 0.05 10*3/uL [facility] Basophils/100 WBC (Bld) 0 % 0 - 2 % [facility] Eosinophils (Bld) [#/Vol] 0.22 10*3/uL [facility] Eosinophils/100 WBC (Bld) 2 % 1 - 4 % [facility] Erythrocyte distribution width (RBC) [Ratio] 12.6 % 11.8 - 14.4 % [facility] Hematocrit (Bld) [Volume fraction] 38.2 % 36.3 - 47.1 % [facility] Hemoglobin (Bld) [Mass/Vol] 12.8 g/dL 11.9 - 15.1 g/dL [facility] Immature granulocytes (Bld) [#/Vol] 0.07 10*3/uL [facility] Immature granulocytes/100 WBC (Bld) 1 % High 0 [facility] Interpretation and review of laboratory results Abnormal [facility] Lymphocytes/100 WBC (Bld) 30 % 24 - 43 % [facility] Lymphocytes/100 WBC (Bld) 3.57 % [facility] MCH (RBC) [Entitic mass] 30.2 pg 25.2 - 33.5 pg [facility] MCHC (RBC) [Mass/Vol] 33.5 g/dL 28.4 - 34.8 g/dL [facility] MCV (RBC) [Entitic vol] 90.1 fL 82.6 - 102.9 fL [facility] Monocytes/100 WBC (Bld) 9 % 3 - 12 % [facility] Monocytes/100 WBC (Bld) 1.10 % [facility] Neutrophils/100 WBC (Bld) 58 % 36 - 65 % [facility] Nucleated RBC/100 WBC (Bld) [Ratio] 0.0 % 0.0 per 100 WBC [facility] Platelet mean volume (Bld) [Entitic vol] 9.4 fL 8.1 - 13.5 fL [facility] Platelets (Bld) [#/Vol] 405 10*3/uL [facility] RBC (Bld) [#/Vol] 4.24 10*6/uL 3.95 - 5.1 1 m/uL [facility] Segmented neutrophils/100 WBC (Bld) 6.73 % [facility] WBC other (Bld) [#/Vol] 11.7 High [facility] CKon 04-27-2023 CK [Catalytic activity/Vol] 2596 U/L High 26 - 192 U/L [facility] Interpretation and review of laboratory results Abnormal [facility] Culture, Blood 1on 3 Service comment (Unsp spec) [Interp] RT HAND 5 ML [facility] Culture, Blood 2on 3 Service comment (Unsp spec) [Interp] LEFT FA 5 ML [facility] Laboratoryon 04-27-2023 Microorganism identified Cx Nom (Unsp spec) NO GROWTH 5 DAYS [facility] No Panel Informationon 04-27 Specimen Description .BLOOD [facility] Basic Metabolic Panel w/ Ref aditya to MGon 04-26-2023 Anion gap [Moles/Vol] 14 mmol/L 9 - 17 mmol/L [facility] Calcium [Mass/Vol] 8.9 mg/dL 8.6 - 10. 4 mg/dL [facility] Chloride [Moles/Vol] 107 mmol/L 98 - 10 7 mmol/L [facility] CO2 [Moles/Vol] 20 mmol/L 20 - 31 mmol/L [facility] Creatinine [Mass/Vol] 1.0 mg/dL High 0.5 - 0.9 mg/dL [facility] GFR/1.73 sq M.predicted MDRD (S/P/Bld) [Vol rate/Area] - PINF [facility] Comment on above: These results are not [...] 100 mg/dL High 70 - 99 mg/dL [facility] Interpretation and review of laboratory results Abnormal [facility] Potassium [Moles/Vol] 4.2 mmol/L 3.7 - 5.3 mmol/L [facility] Sodium [Moles/Vol] 141 mmol/L 135 - 144 mmol/L [facility] Urea nitrogen [Mass/Vol] 9 mg/dL 6 - 20 mg/dL [facility] CBC with Auto Differentialon 04-26-2023 Basophils (Bld) [#/Vol] 0.08 10*3/uL [facility] Basophils/100 WBC (Bld) 1 % 0 - 2 % [facility] Eosinophils (Bld) [#/Vol] 0.17 10*3/uL [facility] Eosinophils/100 WBC (Bld) 1 % 1 - 4 % [facility] Erythrocyte distribution width (RBC) [Ratio] 12.1 % 11.8 - 14.4 % [facility] Hematocrit (Bld) [Volume fraction] 38.0 % 36.3 - 47.1 % [facility] Hemoglobin (Bld) [Mass/Vol] 12.4 g/dL 11.9 - 15.1 g/dL [facility] Immature granulocytes (Bld) [#/Vol] 0.06 10*3/uL [facility] Immature granulocytes/100 WBC (Bld) 1 % High 0 [facility] Interpretation and review of laboratory results Abnormal [facility] Lymphocytes/100 WBC (Bld) 25 % 24 - 43 % [facility] Lymphocytes/100 WBC (Bld) 2.94 % [facility] MCH (RBC) [Entitic mass] 30.5 pg 25.2 - 33.5 pg [facility] MCHC (RBC) [Mass/Vol] 32.6 g/dL 28.4 - 34.8 g/dL [facility] MCV (RBC) [Entitic vol] 93.6 fL 82.6 - 102.9 fL [facility] Monocytes/100 WBC (Bld) 9 % 3 - 12 % [facility] Monocytes/100 WBC (Bld) 1.11 % [facility] Neutrophils/100 WBC (Bld) 63 % 36 - 65 % [facility] Nucleated RBC/100 WBC (Bld) [Ratio] 0.0 % 0.0 per 100 WBC [facility] Platelet mean volume (Bld) [Entitic vol] 9.1 fL 8.1 - 13.5 fL [facility] Platelets (Bld) [#/Vol] 404 10*3/uL [facility] RBC (Bld) [#/Vol] 4.06 10*6/uL 3.95 - 5.1 1 m/uL [facility] Segmented neutrophils/100 WBC (Bld) 7.58 % [facility] WBC other (Bld) [#/Vol] 11.9 High [facility] CKon 04-26-2023 CK [Catalytic activity/Vol] 6033 U/L High 26 - 192 U/L [facility] Interpretation and review of laboratory results Abnormal [facility] Culture, Urineon 04-26-2023 Interpretation and review of laboratory results Abnormal [facility] Microorganism identified Cx Nom (Unsp spec) ESCHERICHIA COLI >100,000 CFU/ML Abnormal [facility] Specimen Description .CLEAN CATCH URINE [facility] HIV Screenon 04-26-2023 HIV 1+2 Ab+HIV1 p24 Ag IA Ql Non-Reactive NONREACTIVE [facility] Comment on above: No laboratory eviden ce of HIV infection. If acute HIV infection is suspected, consider testing for HIV-1 RNA. [facility] MRI TIBIA FIBULA LEFT WO CON TRASTon [...] to be communicated to a licensed caregiver. [facility] RIS CONSOLIDATED EXAMINATION: MRI OF THE LEFT [...] significant joint effusions or appreciable osseous erosions. [facility] Lance Jackson DO - 04/26/2023 [...] to be communicated to a licensed caregiver. [facility] Radiology Study observation (narrative) [facility] MRI TIBIA FIBULA LEFT WO CON TRASTOrdered By: Lance Jara on 04-26-2023 [facility] Work Phone: POC Glucose Fingerstickon Glucose [Mass/Vol] 133 mg/dL High 65 - 105 mg/dL [facility] Interpretation and review of laboratory results Abnormal [facility] [employer] Glucose [Mass/Vol] 129 mg/dL High 65 - 105 mg/dL [facility] Interpretation and review of laboratory results Abnormal [facility] Glucose [Mass/Vol] 96 mg/dL 65 - 105 mg/dL [facility] Vascular duplex lower extrem ity venous [...] of the calf veins due to swelling. [employer] [facility] Details A neves scale, color Doppler imaging and spectral Doppler analysis ultrasound was performed. During the study longitudinal and transverse views were obtained. Overall the study quality was limited. Study was technically difficult due to: patient uncooperative, presence of lines and dressings, bedside exam, patient positioning and edema. [facility] CV CPACS Vascular duplex lower extrem ity venous bilateralOrdered By: Al Phan on 04-26-2023 [facility] Work Phone: Basic Metabolic Panel w/ Ref aditya to MGon 04-25-2023 Anion gap [Moles/Vol] 12 mmol/L 9 - 17 mmol/L [facility] Calcium [Mass/Vol] 8.6 mg/dL 8.6 - 10. 4 mg/dL [facility] Chloride [Moles/Vol] 107 mmol/L 98 - 10 7 mmol/L [facility] CO2 [Moles/Vol] 24 mmol/L 20 - 31 mmol/L [facility] Creatinine [Mass/Vol] 1.0 mg/dL High 0.5 - 0.9 mg/dL [facility] GFR/1.73 sq M.predicted MDRD (S/P/Bld) [Vol rate/Area] - PINF [facility] Comment on above: These results are not [...] [Mass/Vol] 94 mg/dL 70 - 99 mg/dL [facility] Interpretation and review of laboratory results Abnormal [facility] Potassium [Moles/Vol] 3.6 mmol/L Low 3.7 - 5.3 mmol/L [facility] Sodium [Moles/Vol] 143 mmol/L 135 - 144 mmol/L [facility] Urea nitrogen [Mass/Vol] 12 mg/dL 6 - 20 mg/dL [facility] CBC with Auto Differentialon 04-25-2023 Basophils (Bld) [#/Vol] 0.04 10*3/uL [facility] Basophils/100 WBC (Bld) 0 % 0 - 2 % [facility] Eosinophils (Bld) [#/Vol] 0.15 10*3/uL [facility] Eosinophils/100 WBC (Bld) 1 % 1 - 4 % [facility] Erythrocyte distribution width (RBC) [Ratio] 12.3 % 11.8 - 14.4 % [facility] Hematocrit (Bld) [Volume fraction] 34.4 % Low 36.3 - 47.1 % [facility] Hemoglobin (Bld) [Mass/Vol] 11.8 g/dL Low 11.9 - 15.1 g/dL [facility] Immature granulocytes (Bld) [#/Vol] 0.08 10*3/uL [facility] Immature granulocytes/100 WBC (Bld) 1 % High 0 [facility] Interpretation and review of laboratory results Abnormal [facility] Lymphocytes/100 WBC (Bld) 21 % Low 24 - 43 % [facility] Lymphocytes/100 WBC (Bld) 2.71 % [facility] MCH (RBC) [Entitic mass] 30.4 pg 25.2 - 33.5 pg [facility] MCHC (RBC) [Mass/Vol] 34.3 g/dL 28.4 - 34.8 g/dL [facility] MCV (RBC) [Entitic vol] 88.7 fL 82.6 - 102.9 fL [facility] Monocytes/100 WBC (Bld) 8 % 3 - 12 % [facility] Monocytes/100 WBC (Bld) 1.07 % [facility] Neutrophils/100 WBC (Bld) 69 % High 36 - 65 % [facility] Nucleated RBC/100 WBC (Bld) [Ratio] 0.0 % 0.0 per 100 WBC [facility] Platelet mean volume (Bld) [Entitic vol] 10.0 fL 8.1 - 13.5 fL [facility] Platelets (Bld) [#/Vol] 415 10*3/uL [facility] RBC (Bld) [#/Vol] 3.88 10*6/uL Low 3.95 - 5.1 1 m/uL [facility] Segmented neutrophils/100 WBC (Bld) 9.05 % High [facility] WBC other (Bld) [#/Vol] 13.1 High [facility] CKon 04-25-2023 CK [Catalytic activity/Vol] 86259 U/L High 26 - 192 U/L [facility] Interpretation and review of laboratory results Abnormal [facility] Potassiumon 04-25-2023 Interpretation and review of laboratory results Abnormal [facility] Potassium [Moles/Vol] 3.4 mmol/L Low 3.7 - 5.3 mmol/L [facility] Vascular duplex lower extrem ity venous bilateralon 04-25-2023 Radiology Study observation (narrative) [facility] Basic Metabolic Panel w/ Ref aditya to MGon 04-24-2023 Anion gap [Moles/Vol] 8 mmol/L Low 9 - 17 mmol/L [facility] [facility] Calcium [Mass/Vol] 8.5 mg/dL Low 8.6 - 10. 4 mg/dL [facility] Chloride [Moles/Vol] 107 mmol/L 98 - 10 7 mmol/L [facility] CO2 [Moles/Vol] 25 mmol/L 20 - 31 mmol/L [facility] Creatinine [Mass/Vol] 1.2 mg/dL High 0.5 - 0.9 mg/dL [facility] GFR/1.73 sq M.predicted MDRD (S/P/Bld) [Vol rate/Area] - PINF [facility] Comment on above: These results are not [...] 140 mg/dL High 70 - 99 mg/dL [facility] Interpretation and review of laboratory results Abnormal [facility] Potassium [Moles/Vol] 3.5 mmol/L Low 3.7 - 5.3 mmol/L [facility] Sodium [Moles/Vol] 140 mmol/L 135 - 144 mmol/L [facility] Urea nitrogen [Mass/Vol] 14 mg/dL 6 - 20 mg/dL [facility] Anion gap [Moles/Vol] 9 mmol/L 9 - 17 mmol/L [facility] Calcium [Mass/Vol] 8.7 mg/dL 8.6 - 10. 4 mg/dL [facility] Chloride [Moles/Vol] 110 mmol/L High 98 - 10 7 mmol/L [facility] CO2 [Moles/Vol] 26 mmol/L 20 - 31 mmol/L [facility] Creatinine [Mass/Vol] 1.1 mg/dL High 0.5 - 0.9 mg/dL [facility] GFR/1.73 sq M.predicted MDRD (S/P/Bld) [Vol rate/Area] - PINF [facility] Comment on above: These results are not [...] 106 mg/dL High 70 - 99 mg/dL [facility] Interpretation and review of laboratory results Abnormal [facility] Potassium [Moles/Vol] 3.6 mmol/L Low 3.7 - 5.3 mmol/L [facility] Sodium [Moles/Vol] 145 mmol/L High 135 - 144 mmol/L [facility] Urea nitrogen [Mass/Vol] 17 mg/dL 6 - 20 mg/dL [facility] CBC with Auto Differentialon 04-24-2023 Basophils (Bld) [#/Vol] 0.04 10*3/uL [facility] Basophils/100 WBC (Bld) 0 % 0 - 2 % [facility] Eosinophils (Bld) [#/Vol] 0.23 10*3/uL [facility] Eosinophils/100 WBC (Bld) 2 % 1 - 4 % [facility] Erythrocyte distribution width (RBC) [Ratio] 12.3 % 11.8 - 14.4 % [facility] Hematocrit (Bld) [Volume fraction] 32.7 % Low 36.3 - 47.1 % [facility] Hemoglobin (Bld) [Mass/Vol] 11.1 g/dL Low 11.9 - 15.1 g/dL [facility] Immature granulocytes (Bld) [#/Vol] 0.05 10*3/uL [facility] Immature granulocytes/100 WBC (Bld) 0 % 0 [facility] Interpretation and review of laboratory results Abnormal [facility] Lymphocytes/100 WBC (Bld) 25 % 24 - 43 % [facility] Lymphocytes/100 WBC (Bld) 2.81 % [facility] MCH (RBC) [Entitic mass] 30.7 pg 25.2 - 33.5 pg [facility] MCHC (RBC) [Mass/Vol] 33.9 g/dL 28.4 - 34.8 g/dL [facility] MCV (RBC) [Entitic vol] 90.3 fL 82.6 - 102.9 fL [facility] Monocytes/100 WBC (Bld) 9 % 3 - 12 % [facility] Monocytes/100 WBC (Bld) 1.05 % [facility] Neutrophils/100 WBC (Bld) 64 % 36 - 65 % [facility] Nucleated RBC/100 WBC (Bld) [Ratio] 0.0 % 0.0 per 100 WBC [facility] Platelet mean volume (Bld) [Entitic vol] 9.4 fL 8.1 - 13.5 fL [facility] Platelets (Bld) [#/Vol] 358 10*3/uL [facility] RBC (Bld) [#/Vol] 3.62 10*6/uL Low 3.95 - 5.1 1 m/uL [facility] Segmented neutrophils/100 WBC (Bld) 7.24 % [facility] WBC other (Bld) [#/Vol] 11.4 High [facility] CKon 04-24-2023 CK [Catalytic activity/Vol] 35343 U/L High 26 - 192 U/L [facility] Interpretation and review of laboratory results Abnormal [facility] Drugs of abuse 9 serum w/ re flexon 04-24-2023 Amphetamine Negative Cutoff 20 ng/mL [facility] Barbiturates Negative Cutoff 50 ng/mL [facility] Benzodiazepines Ql (U) Negative Cutoff 50 ng/mL [facility] Buprenorphine Negative Cutoff 1 ng/mL [facility] Cocaine Ql (U) Negative Cutoff 20 ng/mL [facility] Drugs of Abuse Comment See Note [facility] Comment on above: (NOTE) INTERPRETIVE INFORMATION: Drug [...] developed and its performance characteristics determined by [facility]. It has not been cleared or approved by the [place] Food and Drug Administration. This test was performed in a CLIA certified laboratory and is intended for clinical purposes. Performed By: [facility] [address] [place], [place] [id number] Journeyman Pressman: Canelo Croft MD, PhD CLIA Number: [id number] Methadone Ql (U) Negative Cutoff 25 ng/mL [facility] Methamphetamine Negative Cutoff 20 ng/mL [facility] Opiates Ql (U) Negative Cutoff 20 ng/mL [facility] Oxycodone Negative Cutoff 20 ng/mL [facility] Phencyclidine Ql (U) Negative Cutoff 10 ng/mL [facility] THC Negative Cutoff 20 ng/mL [facility] Hepatic Function Panelon Albumin [Mass/Vol] 3.2 g/dL Low 3.5 - 5.2 g/dL [facility] Albumin/Globulin [Mass ratio] 1.2 {ratio} 1.0 - 2.5 [facility] ALP [Catalytic activity/Vol] 78 U/L 35 - 104 U/L [facility] ALT [Catalytic activity/Vol] 820 U/L High 5 - 33 U/L [facility] AST [Catalytic activity/Vol] 580 U/L High NINF - 32 U/L [facility] Bilirubin [Mass/Vol] 0.8 mg/dL 0.3 - 1 .2 mg/dL [facility] Bilirubin.direct [Mass/Vol] 0.4 mg/dL High NINF - 0.3 mg/dL [facility] Bilirubin.indirect [Mass/Vol] 0.4 mg/dL 0.0 - 1.0 mg/dL [facility] Interpretation and review of laboratory results Abnormal [facility] Protein [Mass/Vol] 5.9 g/dL Low 6.4 - 8.3 g/dL [facility] Hepatitis Panel, Acuteon HAV IgM IA Ql Non-Reactive NONREACTIVE [facility] HBV core IgM IA Ql Non-Reactive NONREACTIVE [facility] HBV surface Ag IA Ql Non-Reactive NONREACTIVE B [facility] HCV Ab IA Ql Reactive Abnormal NONREACTIVE [facility] Comment on above: The hepatitis C procedure [...] Interpretation and review of laboratory results Abnormal [facility] Magnesiumon 04-24-2023 Interpretation and review of laboratory results Abnormal [facility] Magnesium [Mass/Vol] 2.7 mg/dL High 1.6 - 2 .6 mg/dL [facility] Microscopic Urinalysison Bacteria LM Ql (Urine sed) MANY Abnormal None [facility] Casts LM.LPF (Urine sed) [#/Area] 10 TO 20 HYALINE Reference range defined for non-centrifuged specimen. [facility] Epithelial cells LM.HPF (Urine sed) [#/Area] 10 TO 20 [facility] Interpretation and review of laboratory results Abnormal [facility] RBC LM.HPF (Urine sed) [#/Area] 5 TO 10 [facility] Comment on above: Reference range defi flavia for non-centrifuged specimen. WBC LM.HPF (Urine sed) [#/Area] TOO NUMEROUS TO COUNT [facility] POC Glucose Fingerstickon Glucose [Mass/Vol] 110 mg/dL High 65 - 105 mg/dL [facility] Interpretation and review of laboratory results Abnormal [facility] Glucose [Mass/Vol] 112 mg/dL High 65 - 105 mg/dL [facility] Interpretation and review of laboratory results Abnormal [facility] Glucose [Mass/Vol] 114 mg/dL High 65 - 105 mg/dL [facility] Interpretation and review of laboratory results Abnormal [facility] Glucose [Mass/Vol] 112 mg/dL High 65 - 105 mg/dL [facility] Interpretation and review of laboratory results Abnormal [facility] TSH with Reflexon 04-24-2023 TSH Qn 1.12 m[IU]/L [facility] Urinalysis with Reflex to Cu ltureon 04-24-2023 Bilirubin Ql (U) Negative NEGATIVE [facility] Clarity (U) Turbid Abnormal Clear [facility] Color (U) Yellow Yellow [facility] Glucose Test strip (U) [Mass/Vol] Negative NEGATIVE mg/dL [facility] Hemoglobin Auto test strip Ql (U) LARGE Abnormal NEGATIVE [facility] Interpretation and review of laboratory results Abnormal [facility] Ketones (U) [Mass/Vol] Negative NEGATIVE mg/dL [facility] Leukocyte esterase Test strip Ql (U) LARGE Abnormal NEGATIVE [facility] Nitrite Ql (U) Positive Abnormal NEGATIVE [facility] pH (U) 7.0 [pH] 5.0 - 8.0 [facility] Protein (U) [Mass/Vol] 1+ Abnormal NEGATIVE mg/dL [facility] Specific gravity (U) [Rel density] 1.015 1.005 - 1.030 [facility] Urobilinogen Qn (U) ELEVATED 0.0 - 1. 0 EU/dL [facility] APTTon 04-23-2023 aPTT Coag (Bld) [Time] 26.1 s [facility] Comment on above: IV Heparin Therapy Range: 66.0-92.0 sec Ammoniaon 04-23-2023 Ammonia (P) [Moles/Vol] 41 umol/L 11 - 51 umol/L [facility] Basic Metabolic Panel w/ Ref aditya to MGon 04-23-2023 Anion gap [Moles/Vol] 12 mmol/L 9 - 17 mmol/L [facility] Calcium [Mass/Vol] 8.6 mg/dL 8.6 - 10. 4 mg/dL [facility] Chloride [Moles/Vol] 120 mmol/L High 98 - 10 7 mmol/L [facility] CO2 [Moles/Vol] 24 mmol/L 20 - 31 mmol/L [facility] Creatinine [Mass/Vol] 1.2 mg/dL High 0.5 - 0.9 mg/dL [facility] GFR/1.73 sq M.predicted MDRD (S/P/Bld) [Vol rate/Area] - PINF [facility] Comment on above: These results are not [...] 111 mg/dL High 70 - 99 mg/dL [facility] Interpretation and review of laboratory results Abnormal [facility] Potassium [Moles/Vol] 5.5 mmol/L High 3.7 - 5.3 mmol/L [facility] Sodium [Moles/Vol] 156 mmol/L High 135 - 144 mmol/L [facility] Urea nitrogen [Mass/Vol] 19 mg/dL 6 - 20 mg/dL [facility] CBC with Auto Differentialon 04-23-2023 Basophils (Bld) [#/Vol] 0.06 10*3/uL [facility] Basophils/100 WBC (Bld) 1 % 0 - 2 % [facility] Eosinophils (Bld) [#/Vol] 0.14 10*3/uL [facility] Eosinophils/100 WBC (Bld) 1 % 1 - 4 % [facility] Erythrocyte distribution width (RBC) [Ratio] 12.4 % 11.8 - 14.4 % [facility] Hematocrit (Bld) [Volume fraction] 36.7 % 36.3 - 47.1 % [facility] Hemoglobin (Bld) [Mass/Vol] 12.0 g/dL 11.9 - 15.1 g/dL [facility] Immature granulocytes (Bld) [#/Vol] 0.04 10*3/uL [facility] Immature granulocytes/100 WBC (Bld) 0 % 0 [facility] Interpretation and review of laboratory results Abnormal [facility] Lymphocytes/100 WBC (Bld) 20 % Low 24 - 43 % [facility] Lymphocytes/100 WBC (Bld) 2.35 % [facility] MCH (RBC) [Entitic mass] 30.2 pg 25.2 - 33.5 pg [facility] MCHC (RBC) [Mass/Vol] 32.7 g/dL 28.4 - 34.8 g/dL [facility] MCV (RBC) [Entitic vol] 92.2 fL 82.6 - 102.9 fL [facility] Monocytes/100 WBC (Bld) 7 % 3 - 12 % [facility] Monocytes/100 WBC (Bld) 0.89 % [facility] Neutrophils/100 WBC (Bld) 71 % High 36 - 65 % [facility] Nucleated RBC/100 WBC (Bld) [Ratio] 0.0 % 0.0 per 100 WBC [facility] Platelet mean volume (Bld) [Entitic vol] 9.1 fL 8.1 - 13.5 fL [facility] Platelets (Bld) [#/Vol] 374 10*3/uL [facility] RBC (Bld) [#/Vol] 3.98 10*6/uL 3.95 - 5.1 1 m/uL [facility] Segmented neutrophils/100 WBC (Bld) 8.59 % High [facility] WBC other (Bld) [#/Vol] 12.1 High [facility] CKon 04-23-2023 CK [Catalytic activity/Vol] 20926 U/L High 26 - 192 U/L [facility] Interpretation and review of laboratory results Abnormal [facility] Comprehensive Metabolic Pane l w/ Reflex to MGon 04-23-2023 Albumin [Mass/Vol] 3.3 g/dL Low 3.5 - 5.2 g/dL [facility] Albumin/Globulin [Mass ratio] 1.2 {ratio} 1.0 - 2.5 [facility] ALP [Catalytic activity/Vol] 78 U/L 35 - 104 U/L [facility] ALT [Catalytic activity/Vol] 1179 U/L High 5 - 33 U/L [facility] Anion gap [Moles/Vol] 9 mmol/L 9 - 17 mmol/L [facility] AST [Catalytic activity/Vol] 615 U/L High NINF - 32 U/L [facility] Bilirubin [Mass/Vol] 0.9 mg/dL 0.3 - 1 .2 mg/dL [facility] Calcium [Mass/Vol] 8.8 mg/dL 8.6 - 10. 4 mg/dL [facility] Chloride [Moles/Vol] 114 mmol/L High 98 - 10 7 mmol/L [facility] CO2 [Moles/Vol] 24 mmol/L 20 - 31 mmol/L [facility] Creatinine [Mass/Vol] 1.3 mg/dL High 0.5 - 0.9 mg/dL [facility] GFR/1.73 sq M.predicted MDRD (S/P/Bld) [Vol rate/Area] 57 mL/min/{1.73_m2} Low - PINF [facility] Comment on above: These results are not [...] [Mass/Vol] 99 mg/dL 70 - 99 mg/dL [facility] Interpretation and review of laboratory results Abnormal [facility] Potassium [Moles/Vol] 4.1 mmol/L 3.7 - 5.3 mmol/L [facility] Protein [Mass/Vol] 6.0 g/dL Low 6.4 - 8.3 g/dL [facility] Sodium [Moles/Vol] 147 mmol/L High 135 - 144 mmol/L [facility] Urea nitrogen [Mass/Vol] 21 mg/dL High 6 - 20 mg/dL [facility] No Panel Informationon 04-23 [facility] POC Glucose Fingerstickon Glucose [Mass/Vol] 111 mg/dL High 65 - 105 mg/dL [facility] Interpretation and review of laboratory results Abnormal [facility] Glucose [Mass/Vol] 115 mg/dL High 65 - 105 mg/dL [facility] Interpretation and review of laboratory results Abnormal [facility] Protime-INRon 04-23-2023 INR Coag (PPP) [Relative time] 1.5 {INR} [facility] Comment on above: Therapeutic Range: Moderate Anticoagulant Intensity: INR = 2.0-3.0 High Anticoagulant Intensity: INR = 2.5-3.5 Interpretation and review of laboratory results Abnormal [facility] PT Coag (PPP) [Time] 17.8 s High [facility] US GALLBLADDER RUQon 04-23-2 023 1. Cholelithiasis [...] sign. 2. Normal liver and biliary system. [facility] GALLBLADDER RUQOrdered By : Chela Sagastume on 04-23-2023 [facility] [employer] Work Phone: Arterial Blood Gas, POCon Brian Test Positive [facility] [employer] HCO3 (Bld) [Moles/Vol] 26.3 mmol/L 21.0 - 28.0 mmol/L [facility] [employer] Oxygen saturation in Blood 94.0 % 94.0 - 98.0 % [facility] POC pCO2 33.5 Low [facility] POC pCO2 Temp 35.0 mm Hg [facility] POC pH 7.503 High 7.350 - 7.450 [facility] POC pH Temp 7.488 [facility] POC PO2 63.3 Low [facility] POC pO2 Temp 67.8 mm Hg [facility] Positive Base Excess, Art 3.5 mmol/L High 0.0 - 3.0 mmol/L [facility] Pt Temp 38.0 [facility] Sample Site Right Radial Artery [facility] Basic Metabolic Panelon 03-26 Anion gap [Moles/Vol] 12 mmol/L 9 - 17 mmol/L [facility] Calcium [Mass/Vol] 8.1 mg/dL Low 8.6 - 10. 4 mg/dL [facility] Chloride [Moles/Vol] 108 mmol/L High 98 - 10 7 mmol/L [facility] CO2 [Moles/Vol] 24 mmol/L 20 - 31 mmol/L [facility] Creatinine [Mass/Vol] 1.4 mg/dL High 0.5 - 0.9 mg/dL [facility] GFR/1.73 sq M.predicted MDRD (S/P/Bld) [Vol rate/Area] 52 mL/min/{1.73_m2} Low - PINF [facility] Comment on above: These results are not [...] 105 mg/dL High 70 - 99 mg/dL [facility] Interpretation and review of laboratory results Abnormal [facility] Potassium [Moles/Vol] 3.5 mmol/L Low 3.7 - 5.3 mmol/L [facility] Sodium [Moles/Vol] 144 mmol/L 135 - 144 mmol/L [facility] Urea nitrogen [Mass/Vol] 23 mg/dL High 6 - 20 mg/dL [facility] Basic Metabolic Panel w/ Ref aditya to MGon 04-22-2023 Anion gap [Moles/Vol] 10 mmol/L 9 - 17 mmol/L [facility] Calcium [Mass/Vol] 8.2 mg/dL Low 8.6 - 10. 4 mg/dL [facility] Chloride [Moles/Vol] 112 mmol/L High 98 - 10 7 mmol/L [facility] CO2 [Moles/Vol] 23 mmol/L 20 - 31 mmol/L [facility] Creatinine [Mass/Vol] 1.3 mg/dL High 0.5 - 0.9 mg/dL [facility] GFR/1.73 sq M.predicted MDRD (S/P/Bld) [Vol rate/Area] 57 mL/min/{1.73_m2} Low - PINF [facility] Comment on above: These results are not [...] 117 mg/dL High 70 - 99 mg/dL [facility] Interpretation and review of laboratory results Abnormal [facility] Potassium [Moles/Vol] 4.1 mmol/L 3.7 - 5.3 mmol/L [facility] Sodium [Moles/Vol] 145 mmol/L High 135 - 144 mmol/L [facility] Urea nitrogen [Mass/Vol] 21 mg/dL High 6 - 20 mg/dL [facility] Anion gap [Moles/Vol] 12 mmol/L 9 - 17 mmol/L [facility] Calcium [Mass/Vol] 8.1 mg/dL Low 8.6 - 10. 4 mg/dL [facility] Chloride [Moles/Vol] 108 mmol/L High 98 - 10 7 mmol/L [facility] CO2 [Moles/Vol] 26 mmol/L 20 - 31 mmol/L [facility] Creatinine [Mass/Vol] 1.5 mg/dL High 0.5 - 0.9 mg/dL [facility] GFR/1.73 sq M.predicted MDRD (S/P/Bld) [Vol rate/Area] 48 mL/min/{1.73_m2} Low - PINF [facility] Comment on above: These results are not [...] [Mass/Vol] 91 mg/dL 70 - 99 mg/dL [facility] Interpretation and review of laboratory results Abnormal [facility] Potassium [Moles/Vol] 3.4 mmol/L Low 3.7 - 5.3 mmol/L [facility] Sodium [Moles/Vol] 146 mmol/L High 135 - 144 mmol/L [facility] Urea nitrogen [Mass/Vol] 26 mg/dL High 6 - 20 mg/dL [facility] CALCIUM, IONIC (POC)on 04-22 Calcium.ionized (Bld) [Moles/Vol] 1.10 mmol/L Low 1.15 - 1.33 mmol/L [facility] CBC with Auto Differentialon 04-22-2023 Basophils (Bld) [#/Vol] 0.00 10*3/uL [facility] Basophils/100 WBC (Bld) 0 % 0 - 2 % [facility] Eosinophils (Bld) [#/Vol] 0.00 10*3/uL [facility] Eosinophils/100 WBC (Bld) 0 % Low 1 - 4 % [facility] Erythrocyte distribution width (RBC) [Ratio] 12.4 % 11.8 - 14.4 % [facility] Hematocrit (Bld) [Volume fraction] 37.8 % 36.3 - 47.1 % [facility] Hemoglobin (Bld) [Mass/Vol] 13.0 g/dL 11.9 - 15.1 g/dL [facility] Immature granulocytes (Bld) [#/Vol] 0.00 10*3/uL [facility] Immature granulocytes/100 WBC (Bld) 0 % 0 [facility] Interpretation and review of laboratory results Abnormal [facility] Lymphocytes/100 WBC (Bld) 15 % Low 24 - 44 % [facility] Lymphocytes/100 WBC (Bld) 3.03 % [facility] MCH (RBC) [Entitic mass] 31.1 pg 25.2 - 33.5 pg [facility] MCHC (RBC) [Mass/Vol] 34.4 g/dL 28.4 - 34.8 g/dL [facility] MCV (RBC) [Entitic vol] 90.4 fL 82.6 - 102.9 fL [facility] Monocytes/100 WBC (Bld) 3 % 1 - 7 % [facility] Monocytes/100 WBC (Bld) 0.61 % [facility] Morphology Jad (Bld) [Interp] Normal [facility] Neutrophils/100 WBC (Bld) 82 % High 36 - 66 % [facility] Nucleated RBC/100 WBC (Bld) [Ratio] 0.0 % 0.0 per 100 WBC [facility] Platelet mean volume (Bld) [Entitic vol] 9.5 fL 8.1 - 13.5 fL [facility] Platelets (Bld) [#/Vol] 441 10*3/uL [facility] RBC (Bld) [#/Vol] 4.18 10*6/uL 3.95 - 5.1 1 m/uL [facility] Segmented neutrophils/100 WBC (Bld) 16.56 % High [facility] WBC other (Bld) [#/Vol] 20.2 High [facility] CKon 04-22-2023 CK [Catalytic activity/Vol] 68885 U/L High 26 - 192 U/L [facility] Interpretation and review of laboratory results Abnormal [facility] Creatinine W/GFR Point of Ca reon 04-22-2023 Creatinine [Mass/Vol] 1.5 mg/dL High 0.51 - 1.19 mg/dL [facility] eGFR, POC 48 mL/min/1.73m 2 [facility] Comment on above: These results are not [...] URINEon Amphetamines Ql (U) Positive Abnormal NEGATIVE [facility] [employer] Comment on above: (Positive cutoff 1000 ng/mL) Barbiturates Screen Ql (U) Negative NEGATIVE [facility] Comment on above: (Positive cutoff 200 ng/mL) Benzodiazepines Ql (U) Negative NEGATIVE [facility] Comment on above: (Positive cutoff 200 ng/mL) Cannabinoids Screen Ql (U) Negative NEGATIVE [facility] Comment on above: (Positive cutoff 50 ng/mL) Cocaine Ql (U) Negative NEGATIVE [facility] Comment on above: (Positive cutoff 300 ng/mL) fentaNYL Ql (U) Positive Abnormal NEGATIVE [facility] [employer] [facility] Comment on above: (Positive cutoff 5 ng/ml) Interpretation and review of laboratory results Abnormal [facility] Methadone Ql (U) Negative NEGATIVE [facility] Comment on above: (Positive cutoff 300 ng/mL) Opiates Screen Ql (U) Negative NEGATIVE [facility] Comment on above: (Positive cutoff 300 ng/mL) oxyCODONE Ql (U) Negative NEGATIVE [facility] Comment on above: (Positive cutoff 100 ng/mL) Phencyclidine Ql (U) Negative NEGATIVE pickrset [facility] Comment on above: (Positive cutoff 25 ng/mL) Test Information Assay provides medic al screening only. The absence of expected drug(s) and/or metabolite(s) may indicate diluted or adulterated urine, limitations of testing or timing of collection. [facility] Comment on above: Testing for legal pu rposes should be confirmed by another method. To request confirmation of test result, please call the lab within 7 days of sample submission. [facility] EKG 12 LeadOrdered By: Quinn Carrasco on 04-22-2023 Atrial Rate 115 BPM [facility] Work Phone: P [place] 56 degrees [facility] Work Phone: P-R Interval 132 ms [facility] Work Phone: Q-T Interval 382 ms [facility] Work Phone: QRS Duration 78 ms [facility] [employer] Work Phone: QTc Calculation (Bazett) 528 ms [facility] Work Phone: R [place] 54 degrees [facility] [employer] Work Phone: T [place] 60 degrees [facility] Work Phone: Ventricular Rate 115 BPM [facility] [employer] [facility] [employer] Work Phone: [facility] [employer] Work Phone: EKG 12 Leadon 04-22-[address] and T wave abnormality Prolonged QT Abnormal ECG When compared with ECG of 22-APR-2023 02:12, Fusion complexes are no longer Present [facility] STV Dale Ron MD - 04/22/[address] and T wave abnormality Prolonged QT Abnormal ECG When compared with ECG of 22-APR-2023 02:12, Fusion complexes are no longer Present [facility] [employer] ELECTROLYTES PLUSon 04-22-20 Anion gap [Moles/Vol] 8 mmol/L 7 - 16 mmol/L [facility] [employer] Chloride [Moles/Vol] 110 mmol/L High 98 - 10 7 mmol/L [facility] CO2 Calc (Bld) [Moles/Vol] 28 mmol/L 22 - 30 mmol/L [facility] [employer] Potassium [Moles/Vol] 3.1 mmol/L Low 3.5 - 4.5 mmol/L [facility] Sodium [Moles/Vol] 145 mmol/L 138 - 146 mmol/L [facility] Hemoglobin and hematocrit, b loodon 04-22-2023 Hematocrit (Bld) [Volume fraction] 39 % 36 - 46 % [facility] Hemoglobin (Bld) [Mass/Vol] 13.2 g/dL 12.0 - 16.0 g/dL [facility] [employer] Lactic Acidon 04-22-2023 Lactic Acid, Whole Blood 1.5 mmol/L 0.7 - 2.1 mmol/L [facility] Lactic Acid, Whole Blood 1.3 mmol/L 0.7 - 2.1 mmol/L [facility] Lactic Acid, POCon POC Lactic Acid 1.8 mmol/L High 0.56 - 1.39 mmol/L [facility] POC Lactic Acid 1.4 mmol/L High 0.56 - 1.39 mmol/L [facility] MRSA DNA Probe, Nasalon 03-26 Interpretation and review of laboratory results Abnormal [facility] MRSA, DNA, Nasal POSITIVE: MRSA DNA detected by nucleic acid amplification. Abnormal NEGATIVE [facility] Comment on above: Results should be used as an adjunct to nosocomial control efforts to identify patients needing enhanced precautions. The test is not intended to identify patients with staphylococcal infections. Results should not be used to guide or monitor treatment for MRSA infections. Specimen Description .NASAL SWAB [facility] Magnesiumon 04-22-2023 Magnesium [Mass/Vol] 2.4 mg/dL 1.6 - 2 .6 mg/dL [facility] Mixed Venous Gas, POCon 03-26 Brian Test Positive [facility] HCO3 (Bld) [Moles/Vol] 28.1 mmol/L 23.0 - 29.0 mmol/L [facility] Oxygen saturation in Blood 86.1 % High 60.0 - 80.0 % [facility] PCO2, Mixed 34.1 Low [facility] PH MIXED 7.524 High 7.310 - 7.410 [facility] PO2, Mixed 45.4 High [facility] POC pCO2 Temp 35.2 mm Hg [facility] POC pH Temp 7.513 [facility] POC pO2 Temp 47.6 mm Hg [facility] Positive Base Excess, Mixed 5.4 mmol/L High 0.0 - 3.0 mmol/L [facility] Pt Temp 37.7 [facility] Sample Site Left Radial Artery [facility] Myoglobin, Bloodon Interpretation and review of laboratory results Abnormal [facility] Myoglobin [Mass/Vol] 3819 ng/mL High 25 - 58 ng/mL [facility] No Panel Informationon 04-22 Interpretation and review of laboratory results Abnormal [facility] Interpretation and review of laboratory results Abnormal [facility] Radiology Study observation (narrative) [facility] POCT Glucoseon 04-22-2023 Glucose [Mass/Vol] 103 mg/dL High 74 - 100 mg/dL [facility] Glucose [Mass/Vol] 92 mg/dL 74 - 100 mg/dL [facility] POCT urea (BUN)on 04-22-2023 Urea nitrogen [Mass/Vol] 24 mg/dL 8 - 26 mg/dL [facility] Troponinon 04-22-2023 Interpretation and review of laboratory results Abnormal [facility] Troponin I.cardiac High sensitivity method [Mass/Vol] 84 ng/L Critically high 0 - 14 ng/L [facility] Comment on above: High Sensitivity Tro ponin values cannot be compared with other Troponin methodologies. Previous Alert Value Reported [facility] Interpretation and review of laboratory results Abnormal [facility] Troponin I.cardiac High sensitivity method [Mass/Vol] 90 ng/L Critically high 0 - 14 ng/L [facility] Comment on above: High Sensitivity Tro ponin values cannot be compared with other Troponin methodologies. Previous Alert Value Reported [facility] Interpretation and review of laboratory results Abnormal [facility] Troponin I.cardiac High sensitivity method [Mass/Vol] 103 ng/L Critically high 0 - 14 ng/L [facility] Comment on above: High Sensitivity Tro ponin values cannot be compared with other Troponin methodologies. Previous Alert Value Reported [facility] Interpretation and review of laboratory results Abnormal [facility] Troponin I.cardiac High sensitivity method [Mass/Vol] 105 ng/L Critically high 0 - 14 ng/L [facility] Comment on above: High Sensitivity Tro ponin values cannot be compared with other Troponin methodologies. [facility] [employer] XR CHEST PORTABLEon 04-22-20 Normal examination. MHPN [...] osseous and soft tissue structures are unremarkable. [facility] RIS CONSOLIDATED Benji Leiva MD - 04/22/2023 [...] tissue structures are unremarkable. IMPRESSION: Normal examination. [facility] [employer] [facility] XR CHEST PORTABLEOrdered By: Benji Leiva on 04-22-2023 [facility] Work Phone: HEPATITIS PANEL, ACUTEon HBsAg Screen Negative Normal Negative [facility] Comment on above: Performed By: #### H EPACUT #### [facility] [address] [place] [address] Dr. Dorothy Ornelas HCV AB >11.0 Critically high 0.0-0.9 [facility] Comment on above: Result Comment: . Performed By: #### H EPACUT #### [facility] [address] [address] [address] Dorothy Ornelas HCV log10 Normal [facility] Comment on above: Performed By: #### H EPACUT #### [facility] [address] [address] [address] Dorothy Ornelas Hep A Ab, IgM Negative Normal Negative [facility] Comment on above: Performed By: #### H EPACUT #### [facility] [address] [address] [address] Dorothy Ornelas Hep B Core Ab, IgM Negative Normal Negative [facility] Comment on above: Performed By: #### H EPACUT #### [facility] [address] [address] [address] Dorothy Ornelas Hep C Quantitation Not detected Normal [facility] Comment on above: Performed By: #### H EPACUT #### [facility] [address] [address] [address] Dorothy Ornelas Interpretation Comment Normal [facility] Comment on above: Result Comment: Posi tive HCV antibody screen without the presence of HCV RNA is consistent with a resolved past infection or a false positive HCV antibody. Consider repeat testing after one month. Performed By: #### H EPACUT #### [facility] [address] [place] [address] Dr. Dorothy Ornelas Test Information: Comment Normal [facility] Comment on above: Result Comment: The quantitative range of this assay is 15 IU/mL to 100 million IU/mL. Performed By: #### H EPACUT #### [facility] [address] [place] [address] Dr. Dorothy Ornelas HIV 1 AND 2 WITH REFLEXon HIV Screen 4th Generation wRfx Non-Reactive Normal Non Reactive [facility] Comment on above: Result Comment: HIV Negative HIV-1/HIV-2 antibodies and HIV-1 p24 antigen were NOT detected. There is no laboratory evidence of HIV infection. Performed By: #### H IV12 #### [facility] [address] [place] [address] Dr. Dorothy Ornelas RPR QUANTon 05-31-2022 Rapid Plasma Reagin, Quant Non-Reactive Normal NonRea<1:1 [facility] Comment on above: Result Comment: Plea se Note: This test does not meet current guidelines for screening and diagnosis of syphilis. This test is intended for following treatment response in patients being treated for syphilis infection. To screen for syphilis infection, a reflex cascade that includes both RPR and a treponema-specific assay should be utilized, such as Treponema pallidum (Syphilis) Screening [place] (284067) or Rapid Plasma Reagin (RPR) Test With Reflex to Quantitative RPR and Confirmatory Treponema pallidum Antibodies (333271). Performed By: #### R PRQ #### [facility] [address] [address] [address] Dorothy Ornelas CBC AUTO DIFFon 05-30-2022 BASO # 0.1 103/ul Normal 0.0-0.1 [facility] Comment on above: Performed By: #### C BC #### [facility] [address] [address] [address] Dorothy Ornelas Basophils/100 WBC (Bld) 0.5 % Normal 0.2-2.0 [facility] Comment on above: Performed By: #### C BC #### [facility] [address] [place] [address] Dr. Dorothy Ornelas EO # 0.1 103/ul Normal 0.0-0.7 [facility] Comment on above: Performed By: #### C BC #### [facility] [address] [place] [address] Dr. Dorothy Ornelas Eosinophils/100 WBC (Bld) 1.1 % Normal 0.9-7.0 [facility] Comment on above: Performed By: #### C BC #### [facility] [address] [place] [address] Dr. Dorothy Ornelas Erythrocyte distribution width (RBC) [Ratio] 13.0 % Normal 11.0-15.0 [facility] Comment on above: Performed By: #### C BC #### [facility] [address] [place] [address] Dr. Dorothy Ornelas Hematocrit (Bld) [Volume fraction] 45.1 % Normal 36.0-48.0 [facility] Comment on above: Performed By: #### C BC #### [facility] [address] [place] [address] Dr. Dorothy Ornelas Hemoglobin (Bld) [Mass/Vol] 15.1 g/dL Normal 12.0-16.0 [facility] Comment on above: Performed By: #### C BC #### [facility] [address] [place] [address] Dr. Dorothy Ornelas IG # 0.03 10e3/ul Normal 0.00-0.03 [facility] Comment on above: Performed By: #### C BC #### [facility] [address] [place] [address] Dr. Dorothy Ornelas IG % 0.3 % Normal 0.0-0.5 [facility] Comment on above: Performed By: #### C BC #### [facility] [address] [place] [address] Dr. Dorothy Ornelas LYMPH # 4.1 103/ul Critically high 1.2-3.8 [facility] Comment on above: Performed By: #### C BC #### [facility] [address] [place] [address] Dr. Dorothy Ornelas Lymphocytes/100 WBC (Bld) 38.2 % Normal 20.5-60.0 [facility] Comment on above: Performed By: #### C BC #### [facility] [address] [place] [address] Dr. Dorothy Ornelas MANUAL DIFF REQ NO Normal [facility] Comment on above: Performed By: #### C BC #### [facility] [address] [place] [address] Dr. Dorothy Ornelas MCH (RBC) [Entitic mass] 30.4 pg Normal 26.7-34.0 [facility] Comment on above: Performed By: #### C BC #### [facility] [address] [place] [address] Dr. Dorothy Ornelas MCHC (RBC) [Mass/Vol] 33.5 g/dL Normal 29.9-35.2 [facility] Comment on above: Performed By: #### C BC #### [facility] [address] [place] [address] Dr. Dorothy Ornelas MCV (RBC) [Entitic vol] 90.9 fL Normal 81.0-99.0 [facility] Comment on above: Performed By: #### C BC #### [facility] [address] [place] [address] Dr. Dorothy Ornelas MONO # 0.6 103/ul Normal 0.3-0.8 [facility] Comment on above: Performed By: #### C BC #### [facility] [address] [place] [address] Dr. Dorothy Ornelas Monocytes/100 WBC (Bld) 5.9 % Normal 1.7-12.0 [facility] Comment on above: Performed By: #### C BC #### [facility] [address] [place] [address] Dr. Dorothy Ornelas NEUT # 5.8 103/ul Normal 1.4-6.5 [facility] Comment on above: Performed By: #### C BC #### [facility] [address] [place] [address] Dr. Dorothy Ornelas Neutrophils/100 WBC (Bld) 54.0 % Normal 43.0-75.0 [facility] Comment on above: Performed By: #### C BC #### [facility] [address] [place] [address] Dr. Dorothy Ornelas Platelet mean volume (Bld) [Entitic vol] 9.3 fL Critically low 9.5-13.5 [facility] Comment on above: Performed By: #### C BC #### [facility] [address] [place] [address] Dr. Dorothy Ornelas PLT 390 103/ul Normal 150-450 [facility] Comment on above: Performed By: #### C BC #### [facility] [address] [place] [address] Dr. Dorothy Ornelas RBC 4.96 106/ul Normal 4.20-5.40 [facility] Comment on above: Performed By: #### C BC #### [facility] [address] [place] [address] Dr. Dorothy Ornelas WBC 10.8 103/ul Normal 4.0-11.0 [facility] Comment on above: Performed By: #### C BC #### [facility] [address] [place] [address] Dr. Dorothy Ornelas PROF 14(COMP METB)on 022 Albumin [Mass/Vol] 3.6 g/dL Normal 3.4-5.0 [facility] Comment on above: Performed By: #### C MP #### [facility] [address] [address] [address] Dorothy Ornelas Albumin/Globulin [Mass ratio] 0.8 {ratio} Normal [facility] Comment on above: Performed By: #### C MP #### [facility] [address] [address] [address] Dorothy Ornelas ALP [Catalytic activity/Vol] 101 U/L Normal 46-116 [facility] Comment on above: Performed By: #### C MP #### [facility] [address] [place] [address] Dr. Dorothy Ornelas ALT [Catalytic activity/Vol] 90 U/L Critically high 14-59 [facility] Comment on above: Performed By: #### C MP #### [facility] [address] [place] [address] Dr. Dorothy Ornelas Anion gap [Moles/Vol] 11.3 mmol/L Normal [facility] Comment on above: Performed By: #### C MP #### [facility] [address] [place] [address] Dr. Dorothy Ornelas AST [Catalytic activity/Vol] 65 U/L Critically high 15-37 [facility] Comment on above: Performed By: #### C MP #### [facility] [address] [place] [address] Dr. Dorothy Ornelas Bilirubin [Mass/Vol] 0.4 mg/dL Normal 0.2-1.0 [facility] Comment on above: Performed By: #### C MP #### [facility] [address] [place] [address] Dr. Dorothy Ornelas Calcium [Mass/Vol] 9.0 mg/dL Normal 8.5-10.1 [facility] Comment on above: Performed By: #### C MP #### [facility] [address] [place] [address] Dr. Dorothy Ornelas Chloride [Moles/Vol] 101 mmol/L Normal 98-107 [facility] Comment on above: Performed By: #### C MP #### [facility] [address] [place] [address] Dr. Dorothy Ornelas CO2 [Moles/Vol] 22.8 mmol/L Normal 21.0-32.0 [facility] Comment on above: Performed By: #### C MP #### [facility] [address] [address] [address] Dorothy Ornelas Creatinine [Mass/Vol] 0.84 mg/dL Normal 0.55-1.02 [facility] Comment on above: Performed By: #### C MP #### [facility] [address] [address] [address] Dorothy Ornelas EGFR-AF COMORAN >60 Normal >=60 [facility] Comment on above: Performed By: #### C MP #### [facility] [address] [address] [address] Dorothy Ornelas EGFR-NON AF COMORAN >60 Normal >=60 [facility] Comment on above: Performed By: #### C MP #### [facility] [address] [place] [address] Dr. Dorothy Ornelas Globulin (S) [Mass/Vol] 4.3 g/dL Normal [facility] Comment on above: Performed By: #### C MP #### [facility] [address] [place] [address] Dr. Dorothy Ornelas Glucose [Mass/Vol] 103 mg/dL Normal 74-106 [facility] Comment on above: Performed By: #### C MP #### [facility] [address] [place] [address] Dr. Dorothy Ornelas Potassium [Moles/Vol] 4.1 mmol/L Normal 3.5-5.1 [facility] Comment on above: Performed By: #### C MP #### [facility] [address] [address] [address] Dorothy Ornelas Protein [Mass/Vol] 7.9 g/dL Normal 6.4-8.2 [facility] Comment on above: Performed By: #### C MP #### [facility] [address] [place] [address] Dr. Dorothy Ornelas Sodium [Moles/Vol] 131 mmol/L Critically low 136-145 Th e [facility] Comment on above: Performed By: #### C MP #### [facility] [address] [address] [address] Dorothy Ornelas Urea nitrogen [Mass/Vol] 9.0 mg/dL Normal 7.0-18.0 [facility] Comment on above: Performed By: #### C MP #### [facility] [address] [address] [address] Dorothy Ornelas Urea nitrogen/Creatinine [Mass ratio] 10.7 mg/mg Normal [facility] Comment on above: Performed By: #### C MP #### [facility] [address] [address] [address] Dorothy Ornelas CBCon 01-11-2019 Erythrocyte distribution width (RBC) [Ratio] 14.2 % Normal 11.8-14.4 [facility] Comment on above: Performed By: #### C BC, HCG, CP #### [address] [place] [address] Motor Operator: Gee Velasco MD #### HIVCMB, PHEP #### [facility] [address] [place] [address] Motor Operator: Main Hunt MD Hematocrit (Bld) [Volume fraction] 36.1 % Low 36.3-47.1 [facility] Comment on above: Performed By: #### C BC, HCG, CP #### [address] [place] [address] Motor Operator: Gee Velasco MD #### HIVCMB, PHEP #### [facility] [address] [place] [address] Motor Operator: Main Hunt MD Hemoglobin (Bld) [Mass/Vol] 11.8 g/dL Low 11.9-15.1 [facility] Comment on above: Performed By: #### C BC, HCG, CP #### [address] [place] [address] Motor Operator: Gee Velasco MD #### HIVCMB, PHEP #### [address] [place], [place] [phone] Motor Operator: Main Hunt MD MCH (RBC) [Entitic mass] 28.4 pg Normal 25.2-33.5 [facility] Comment on above: Performed By: #### C BC, HCG, CP #### [address] [place] [place] [id number] Motor Operator: Gee Velasco MD #### HIVCMB, PHEP #### [address] [phone] Motor Operator: Main Hunt MD MCHC (RBC) [Mass/Vol] 32.7 g/dL Normal 28.4-34.8 [facility] Comment on above: Performed By: #### C BC, HCG, CP #### [address] [place] [phone] Motor Operator: Gee Velasco MD #### HIVCMB, PHEP #### [place] [address] Motor Operator: Main Hunt MD MCV (RBC) [Entitic vol] 86.8 fL Normal 82.6-102.9 [facility] Comment on above: Performed By: #### C BC, HCG, CP #### [address] [phone] Motor Operator: Gee Velasco MD #### HIVCMB, PHEP #### [address] [phone] Motor Operator: Main Hunt MD NRBC Automated 0.0 per 100 WBC Normal 0.0 [facility] Comment on above: Performed By: #### C BC, HCG, CP #### [address] [place] [phone] Motor Operator: Gee Velasco MD #### HIVCMB, PHEP #### [address] [place], [place] [phone] Motor Operator: Main Hunt MD Platelet mean volume (Bld) [Entitic vol] 9.5 fL Normal 8.1-13.5 [facility] Comment on above: Performed By: #### C BC, HCG, CP #### [facility] [address] [place] [address] [address] [place] [phone] Motor Operator: Gee Velasco MD #### HIVCMB, PHEP #### [address] [phone] Motor Operator: Main Hunt MD Platelets (Bld) [#/Vol] 453 10*3/uL Normal 138-453 [facility] Comment on above: Performed By: #### C BC, HCG, CP #### [address] [place] [phone] Motor Operator: Gee Velasco MD #### HIVCMB, PHEP #### [address] [phone] Motor Operator: Main Hunt MD RBC (Bld) [#/Vol] 4.16 10*6/uL Normal 3.95-5.11 [facility] Comment on above: Performed By: #### C BC, HCG, CP #### [address] [place] [address] Motor Operator: Gee Velasco MD #### HIVCMB, PHEP #### [address] [phone] Motor Operator: Main Hunt MD WBC (Bld) [#/Vol] 9.4 10*3/uL Normal 3.5-11.3 [facility] Comment on above: Performed By: #### C BC, HCG, CP #### [address] [place] [address] Motor Operator: Gee Velasco MD #### HIVCMB, PHEP #### [facility] [address] [place], [place] [phone] Motor Operator: Main Hunt MD Comp Metabolic Profon 2018 (cont.) Normal [facility] Comment on above: Result Comment: Aver age GFR for 20-29 years old: 116 mL/min/1.73sq m Chronic Kidney Disease: <60 mL/min/1.73sq m Kidney failure: <15 mL/min/1.73sq m eGFR calculated using average adult body mass. Additional eGFR calculator available at: http://www.[employer]/multiple_crcl_2011.htm Performed By: #### C BC, HCG, CP #### [address] [place] [address] Motor Operator: Gee Velasco MD #### HIVCMB, PHEP #### [address] [address] [place], [place] [id number] Motor Operator: Main Hunt MD Albumin [Mass/Vol] 4.1 g/dL Normal 3.5-5.2 [facility] Comment on above: Performed By: #### C BC, HCG, CP #### [address] [place] [address] Motor Operator: Gee Velasco MD #### HIVCMB, PHEP #### [facility] [address] [place], [place] [phone] Motor Operator: Main Hunt MD Albumin/Globulin [Mass ratio] 1.2 {ratio} Normal 1.0-2.5 [facility] Comment on above: Performed By: #### C BC, HCG, CP #### [address] [place] [address] Motor Operator: Gee Velasco MD #### HIVCMB, PHEP #### [address] [place] [address] Motor Operator: Main Hunt MD Alkaline Phos 85 U/L Normal 35-104 [facility] Comment on above: Performed By: #### C BC, HCG, CP #### [facility] [address] [place], [place] [phone] Motor Operator: Gee Velasco MD #### HIVCMB, PHEP #### [address] [address] Motor Operator: Main Hunt MD ALT [Catalytic activity/Vol] 26 U/L Normal 5-33 [facility] Comment on above: Performed By: #### C BC, HCG, CP #### [facility] [address] [place], [place] [phone] Motor Operator: Gee Velasco MD #### HIVCMB, PHEP #### [address] [address] Motor Operator: Main Hunt MD Anion gap [Moles/Vol] 14 mmol/L Normal 9-17 [facility] Comment on above: Performed By: #### C BC, HCG, CP #### [address] [place], [place] 2861083 Motor Operator: Gee Velasco MD #### HIVCMB, PHEP #### [address] [address] Motor Operator: Main Hunt MD AST [Catalytic activity/Vol] 23 U/L Normal <32 [facility] Comment on above: Performed By: #### C BC, HCG, CP #### [facility] [address] [place], [place] 3659483 Motor Operator: Gee Velasco MD #### HIVCMB, PHEP #### [address] [place] [address] Motor Operator: Main Hunt MD Bilirubin Ql (U) 0.65 mg/dL Normal 0.3-1.2 [facility] Comment on above: Performed By: #### C BC, HCG, CP #### [facility] [address] [place], [place] [phone] Motor Operator: Gee Velasco MD #### HIVCMB, PHEP #### [address] [address] Motor Operator: Main Hunt MD BUN/CRE Ratio 7 Low 9-20 [facility] Comment on above: Performed By: #### C BC, HCG, CP #### [facility] [address] [place] [address] Dr[address] [place], [place] [phone] Motor Operator: Gee Velasco MD #### HIVCMB, PHEP #### [address] [address] Motor Operator: Main Hunt MD Calcium [Mass/Vol] 9.3 mg/dL Normal 8.6-10.4 [facility] Comment on above: Performed By: #### C BC, HCG, CP #### [facility] [address] [place] [address] Dr[address] [place], [place] [phone] Motor Operator: Gee Velasco MD #### HIVCMB, PHEP #### [address] [address] Motor Operator: Main Hunt MD Chloride [Moles/Vol] 95 mmol/L Low 98-[address] [facility] Comment on above: Performed By: #### C BC, HCG, CP #### [facility] [address] [place] [address] Dr[address] [place], [place] [phone] Motor Operator: Gee Velasco MD #### HIVCMB, PHEP #### [address] [address] Motor Operator: Main Hunt MD CO2 [Moles/Vol] 26 mmol/L Normal 20-31 [facility] Comment on above: Performed By: #### C BC, HCG, CP #### [facility] [address] [place], [place] [phone] Motor Operator: Gee Velasco MD #### HIVCMB, PHEP #### [address] [address] Motor Operator: Main Hunt MD Creatinine [Mass/Vol] 0.69 mg/dL Normal 0.50-0.90 [facility] Comment on above: Performed By: #### C BC, HCG, CP #### [address] [place], [place] 2922383 Motor Operator: Gee Velasco MD #### HIVCMB, PHEP #### [address] [address] Motor Operator: Main Hunt MD GFR, Amer >60 Normal >60 [facility] Comment on above: Performed By: #### C BC, HCG, CP #### [facility] [address] [place] [address] Dr[address] [place], [place] [phone] Motor Operator: Gee Velasco MD #### HIVCMB, PHEP #### [address] [address] Motor Operator: Main Hunt MD GFR,non Amer >60 Normal >[address] [facility] Comment on above: Performed By: #### C BC, HCG, CP #### [facility] [address] [place] [address] Dr[address] [place], [place] 7155083 Motor Operator: Gee Velasco MD #### HIVCMB, PHEP #### [address] [address] Motor Operator: Main Hunt MD Glucose [Mass/Vol] 87 mg/dL Normal 70-99 [facility] Comment on above: Performed By: #### C BC, HCG, CP #### [facility] [address] [place] [address] Dr[address] [place], [place] [phone] Motor Operator: Gee Velasco MD #### HIVCMB, PHEP #### [address] [address] Motor Operator: Main Hunt MD Potassium [Moles/Vol] 3.6 mmol/L Low 3.7-5.3 [facility] Comment on above: Performed By: #### C BC, HCG, CP #### [address] [place] [phone] Motor Operator: Gee Velasco MD #### HIVCMB, PHEP #### [address] [address] Motor Operator: Main Hunt MD Protein [Mass/Vol] 7.6 g/dL Normal 6.4-8.3 [facility] Comment on above: Performed By: #### C BC, HCG, CP #### [address] [place] [phone] Motor Operator: Gee Velasco MD #### HIVCMB, PHEP #### [address] [address] Motor Operator: Main Hunt MD Sodium [Moles/Vol] 135 mmol/L Normal 135-144 [facility] Comment on above: Performed By: #### C BC, HCG, CP #### [address] [place] [phone] Motor Operator: eGe Velasco MD #### HIVCMB, PHEP #### [address] [address] Motor Operator: Main Hunt MD Staging: Normal [facility] Comment on above: Result Comment: Stag e 1: Some kidney damage normal GFR Stage 2: Mild kidney damage GFR 60-89 Stage 3: Moderate kidney damage GFR 30-59 Stage 4: Severe kidney damage GFR 15-29 Stage 5: Severe kidney damage GFR <15 ESRD - chronic treatment by dialysis or transplant Performed By: #### C BC, HCG, CP #### [facility] [address] [place], [place] [address] Motor Operator: Gee Velasco MD #### HIVCMB, PHEP #### [address] [place], [place] 4909508 Motor Operator: Main Hunt MD Urea nitrogen [Mass/Vol] 5 mg/dL Low - [facility] Comment on above: Performed By: #### C BC, HCG, CP #### [facility] [address] [place] [address] Motor Operator: Gee Velasco MD #### HIVCMB, PHEP #### [facility] [address] [place], [place] 0404608 Motor Operator: Main Hunt MD HCG Screen, Bloodon 01-12-20 19 HCG Qn Negative Normal NEG [facility] Comment on above: Result Comment: Spec imens with hCG levels near the threshold of the test (25 mIU/mL) may give a negative or indeterminate result. In such cases, another test should be performed with a new specimen in 48-72 hours. If early is suspected clinically in this setting, correlation with quantitative serum b-hCG level is suggested. [facility] has confirmed the use of plasma for this test. This has not been cleared or approved by the U.S. Food and Drug Administration. The FDA has determined that such clearance is not necessary. Performed By: #### C BC, HCG, CP #### [facility] [address] [place] [address] Motor Operator: Gee Velasco MD #### HIVCMB, PHEP #### [facility] [address] [place], [place] [phone] Motor Operator: Main Hunt MD HIV Ag/Abon 01-11-2019 HIV Ag/Ab NONREACTIVE Normal NR [facility] Comment on above: Result Comment: No l aboratory evidence of HIV infection. If acute HIV infection is suspected, consider testing for HIV-1 RNA. Performed By: #### C BC, HCG, CP #### [facility] [address] [place], [place] 1995483 Motor Operator: Gee Velasco MD #### HIVCMB, PHEP #### [address] [address] Motor Operator: Main Hunt MD Hepatitis Acute [facility] 01-11 Hep A Ab,IgM NONREACTIVE Normal NR [facility] Comment on above: Performed By: #### C BC, HCG, CP #### [facility] [address] [place] [address] Dr[address] [place], [place] 6026083 Motor Operator: Gee Velasco MD #### HIVCMB, PHEP #### [address] [address] Motor Operator: Main Hunt MD Hep B Core Ab,IgM NONREACTIVE Normal NR [facility] Comment on above: Performed By: #### C BC, HCG, CP #### [address] [place], [place] 1099883 Motor Operator: Gee Velasco MD #### HIVCMB, PHEP #### [address] [address] Motor Operator: Main Hunt MD Hep B Surf Ag NONREACTIVE Normal NR [facility] Comment on above: Performed By: #### C BC, HCG, CP #### [facility] [address] [place] [address] Motor Operator: Gee Velasco MD #### HIVCMB, PHEP #### [address] [address] Motor Operator: Main Hunt MD Hep C Ab NONREACTIVE Normal NR [facility] Comment on above: Result Comment: The [...] By: #### C BC, HCG, CP #### [facility] [address] [place] [address] Motor Operator: Gee Velasco MD #### HIVCMB, PHEP #### [facility] [address] [place], [place] 5587508 Motor Operator: Main Hunt MD Vital Signs Date Time Vital Sign Value Performing Clinician Faci lity 05-21-2023 09:17-0400 Diastolic blood pressure 90 mm[Hg] [facility] 05-21-2023 09:17-0400 Heart rate 115 /min [facility] 05-21-2023 09:17-0400 Respiratory rate 18 /min [facility] 05-21-2023 09:17-0400 SaO2% (BldA) [Mass fraction] 98 % [facility] 05-21-2023 09:17-0400 Systolic blood pressure 146 mm[Hg] [facility] 05-21-2023 06:28-0400 Body height 157.48 cm [facility] 05-21-2023 06:28-0400 Body weight 111.13 kg [facility] 05-21-2023 06:27-0400 Body temperature 98.4 [degF] [facility] 04-27-2023 09:38-0400 Respiratory rate 15 /min Salo Olivia MD Work Phone: CINDY ESPINOZA [facility] 04-27-2023 07:43-0400 Body temperature 98.4 [degF] Salo Olivia MD Work Phone: [facility] 04-27-2023 07:43-0400 Diastolic blood pressure 112 mm[Hg] Salo Olivia MD Work Phone: [facility] 04-27-2023 07:43-0400 Heart rate 116 /min Salo Olivia MD Work Phone: [facility] 04-27-2023 07:43-0400 SaO2% (BldA) [Mass fraction] 97 % Salo Olivia MD Work Phone: [facility] [employer] 04-27-2023 07:43-0400 Systolic blood pressure 160 mm[Hg] Salo Olivia MD Work Phone: [facility] 04-25-2023 06:00-0400 Body weight 108.4 kg Salo Olivia MD Work Phone: [facility] Encounters Encounter Date Encounter Type Care Provider Facility Start: 02-22-2024 End: 02-22-2024 Emergency department patient visit [facility] Start: 05-21-2023 End: 05-21-2023 Emergency department patient visit Truong Concepcion Facility:[facility] Start: 05-21-2023 End: 05-21-2023 Emergency department patient visit [facility] Work Phone: Start: 04-22-2023 End: 04-27-2023 Evaluation and management of inpatient Salo Olivia MD Work Phone: [facility] Comment on above: Leg swelling (Primar y Dx); Acute kidney injury (HCC); Non-traumatic rhabdomyolysis; Elevated LFTs Start: 05-30-2022 End: 05-31-[address] NANI GUNTER Facility: Start: 01-11-2019 End: 01-12-[address] [facility] Procedures Date Procedure Procedure Detail Performing Clinician Start: 05-21-2023 End: 05-21-2023 Plain chest X-ray Start: 05-21-2023 Plain X-ray of left tibia and left fibula Start: 04-27-2023 BASIC METABOLIC PANE L W/ REFLEX TO MG FOR LOW K Brendan Hand MD Work Phone: Start: 04-27-2023 Creatine kinase total J ulhima Schira ALFALFA DEHYDRATOR OPERATOR - HOME ORGANIZER Work Phone: Start: 04-26-2023 Glucose blood reagen t strip Yesenia Anne MD Work Phone: Start: 04-26-2023 Glucose blood reagen t strip Yesenia Anne MD Work Phone: Start: 04-26-2023 Mri lower extrem oth /thn jt w/o contr matrl Sandi Schira ALFALFA DEHYDRATOR OPERATOR - HOME ORGANIZER Work Phone: Start: 04-26-2023 Mri lower extrem oth /thn jt w/o contr matrl Joe Vurest DO Work Phone: Start: 04-26-2023 Antibody hiv-1&hiv-2 single result Sandi Schira ALFALFA DEHYDRATOR OPERATOR - HOME ORGANIZER Work Phone: Start: 04-26-2023 Creatine kinase total J ulhima Schira ALFALFA DEHYDRATOR OPERATOR - HOME ORGANIZER Work Phone: Start: 04-26-2023 BASIC METABOLIC PANE [...] limb veins US venous duplex LE LT [facility] Start: 05-21-2023 US Lower extremity v ein - left [facility] Start: 05-04-2023 End: 04-27-2024 CK CK Lab Routine Non-traumatic rhabdomyolysis Expected: 05/04/2023, Expires: 04/27/2024 [facility] Comment on above: Expected: 05/04/2023 , Expires: 04/27/2024 Start: 05-04-2023 End: 04-27-2024 Comprehensive metabolic 2000 panel - Serum or Plasma Comprehensive Metabolic Panel Lab Routine Acute kidney injury (HCC) Elevated LFTs Expected: 05/04/2023, Expires: 04/27/2024 [facility] [employer] [facility] Comment on above: Expected: 05/04/2023 , Expires: 04/27/2024 Start: 03-24-2023 Influenza vaccination Flu vaccine (# 1) [facility] Start: 2015 Screening for malign ant neoplasm of cervix Pap smear [facility] Start: 2013 DTaP/Tdap/Td vaccine (1 - Tdap) DTaP/Tdap/Td vaccine (1 - Tdap) [facility] Start: 2006 Depression Monitoring Depression Mon itoring [facility] Start: 1995 Varicella vaccine (1 of 2 - 2-dose childhood series) Varicella vaccine (1 of 2 - 2-dose childhood series) [facility] Start: 1994 COVID-19 Vaccine (#1) COVID-19 Vacci ne (#1) [facility] [employer] ABG draw ABG draw Respira tory Care Routine As Needed until discontinued starting 04/22/2023 [facility] Comment on above: As Needed until disc ontinued starting 04/22/2023 End: 05-16-2023 CBC W Auto Differential panel - Blood CBC with Auto Differential Lab Routine Daily for 3 Weeks starting 04/26/2023 until 05/16/2023, 2 completed [facility] Comment on above: Daily for [address] arting 04/26/2023 until 05/16/2023, 2 completed End: 04-29-2023 CK CK Lab Routine Daily for 3 Days starting 04/27/2023 until 04/29/2023, 1 completed [facility] Comment on above: Daily for 3 Days sta rting 04/27/2023 until 04/29/2023, 1 completed Continuous pulse oximetry Pulse oximetry, continuous Respiratory Care Routine Every 4hr until discontinued starting 04/22/2023 [facility] Comment on above: Every 4hr until disc ontinued starting 04/22/2023 End: 04-22-2023 Culture, Respiratory Culture, Respiratory Microbiology Routine One Time for 1 Occurrences starting 04/22/2023 until 04/22/2023 [facility] Comment on above: One Time for 1 Occur rences starting 04/22/2023 until 04/22/2023 End: 04-22-2023 Culture, Virus, Respiratory Culture, Virus, Respiratory Microbiology Routine One Time for 1 Occurrences starting 04/22/2023 until 04/22/2023 [facility] Comment on above: One Time for 1 Occur rences starting 04/22/2023 until 04/22/2023 Glucose [Mass/volume ] in Serum or Plasma POCT glucose Point of Care Testing Routine 4X Daily (AC & HS) until discontinued starting 04/22/2023 [facility] Work Phone: Comment on above: 4X Daily (AC & HS) u ntil discontinued starting 04/22/2023 Mri lower extrem oth /thn jt w/o contr matrl MRI TIBIA FIBULA RIGHT WO CONTRAST Imaging STAT 04/26/2023 12:06 PM EDT [facility] Oxygen therapy [[facility]] Initiate Oxygen Therapy Protocol Respiratory Care Routine As Needed until discontinued starting 04/22/2023 [facility] Comment on above: As Needed until disc ontinued starting 04/22/2023 Patient Education Tachycardia De pendent Edema (DC) Muscle and Bone Pain (DC) [facility] Work Phone: Patient referral [facility] Work Phone: End: 04-22-2023 PREVIOUS SPECIMEN [facility] Work Phone: Comment on above: Once for 1 Occurrenc es starting 04/22/2023 until 04/22/2023 Radiologic examinati on femur minimum 2 views XR FEMUR RIGHT (MIN 2 VIEWS) Imaging STAT 04/25/2023 6:26 PM EDT [facility] Radiologic examinati on knee 3 views XR KNEE RIGHT (3 VIEWS) Imaging STAT 04/25/2023 6:26 PM EDT [facility] Work Phone: Radiologic examinati on tibia & fibula 2 views XR TIBIA FIBULA RIGHT (2 VIEWS) Imaging STAT 04/25/2023 6:26 PM EDT [facility] Payers Date Payer Category Payer Self-pay [id number] 1995 Unknown [id number] 1994 Unknown [id number] 1994 Unknown [id number] 1959 Unknown [id number] Unknown [id number] [id number] [id number] Social History Date Type Detail Facility Tobacco smoking status MOIS Tobacco smoking consumption unknown [facility] Start: 1995 Sex Assigned At Not on file B ON [facility] Start: 05-21-2023 Tobacco smoking status NHIS Smoker (finding) [facility] Start: 1995 Sex Assigned At Female F [facility] Discharge instructions 04-27-2023 Discharge InstructionsAttachments Note Date & Type Note Facility 04-27-2023 Hospital Discharg e instructions Yesenia Anne MD - 04/27/2023 3:37 PM EDT - Avoid excessive or strenuous activities till you follow-up with your PCP and get cleared -Repeat blood work in 1 week The following attachments cannot be sent through Care Everywhere.UTI (Urinary Tract Infection): Female (Ghanaian)Rhabdomyolysis (Ghanaian)Hepatitis C (Ghanaian)documented in this encounter [facility] course Narrative 04-27-2023 Yesenia Anne MD - 04/27/2023 2:24 PM EDT Note Date & Type Note Facility 04-27-2023 Hospital course Narrative [facility] Office: [phone] Evangelista Ledezma DO, Wojciech New DO, Pietr Shin DO, [place] Aguillon DO, Ila Davila [...] Cheatham CNP, Courtney Carson CNP, Yuko Viveros, PRESCHOOL ASSISTANT PRINCIPAL, Jyoti Brown, PRESCHOOL ASSISTANT PRINCIPAL, Jennifer Osborne, PRESCHOOL ASSISTANT PRINCIPAL, Xochitl Bowman, PRAVEEN, Rubin Cordero PA-C, Marci Ibarra, MING, Marcella Stewart, PRAVEEN, Ene Castellanos CNP [facility] IN-PATIENT SERVICE [facility] Discharge Summary Patient ID: Tracy Bennett : 1995 ACCOUNT: [id number] Patient's PCP: VICKIE NUÑEZ Admit Date: 04/22/2023 [...] 28 y.o. who was a transfer from [facility] due to drug overdose. Patient went to ER at [facility] due to suspected drug overdose. Patient had [...] included she just got out of the alf a couple of weeks ago and they [...] that clinical picture, patient was sent to [place] [facility] for further management. Upon arrival she [...] Home Physician Follow Up: Vickie Nuñez [address] [place] [address] Follow up for follow up after hospitalization [facility] [address] [address] Follow up hep c treatment [...] Your Medications These medications were sent to [facility] - [place], [place] - [address] - P [phone] - F [phone], [place] [address] nitrofurantoin (macrocrystal-monohydrate) 100 MG capsule Discharge Procedure [...] this patient's care. documented in this encounter [facility] History of Present illness Narrative 04-26-2023 Nai Alves - 04/26/2023 3:09 PM EDTJacqueline Peñaloza, PT - 04/26/2023 2:28 PM EDSerg Kline OT - 04/26/2023 2:09 PM EDTNaimafaraz Munoz, ALFALFA DEHYDRATOR OPERATOR - HOME ORGANIZER - 04/26/2023 8:15 AM EDT Note Date & Type Note Facility 04-26-2023 History of Present illness Narrative CLINICAL PHARMACY NOTE: MEDS TO BEDS Total # of Prescriptions Filled: 1 The following medications were delivered to the patient: Nitrofurantoin 100mg Additional Documentation: Delivered to patient and two guests at 2:30pm. No copay. HR Physical Therapy Facility/Department: [facility] RENAL//MED SURG Physical Therapy Initial [...] 28 y.o. who was a transfer from [facility] due to drug overdose. Patient went to ER at [facility] due to suspected drug overdose. Patient had [...] included she just got out of the alf a couple of weeks ago and they have been sharing Suboxone. Patient [facility]an at that [...] Ambulation Assistance: Independent Transfer Assistance: Independent Active Creeler: No Patient's Creeler Info: family transports Mode of Transportation: Car [...] and assessment indicating need for AD with [facility] Pt educated with practical instruction with std walker, 4ww, and 2 ww, crutches deferred 2/2 decreased coordination. It was determined that pt is a fall risk with 2 WW improving safety with mobiltiy. left LE pain and weakness is a barrier Functional Reach Test Fall Risk (Score of <10 inches is fall risk): Yes [facility] Score [facility] Inpatient Mobility Raw Score : 18 (04/26/23 144) [facility] Inpatient T-Scale Score : 43.63 (04/26/231441) Mobility [...] original note were not included. Occupational Therapy [facility] Occupational Therapy Not Seen Note DATE: 04/26/2023 [...] from the original note were not included. [facility] Office: [phone] Evangelista Ledezma DO, Wojciech New DO, Piter [...] Munoz DNP, Brittany Cheatham, PRAVEEN, Courtney Carson, PRESCHOOL ASSISTANT PRINCIPAL, Yuko Viveros, PRESCHOOL ASSISTANT PRINCIPAL, Jyoti Brown, PRESCHOOL ASSISTANT PRINCIPAL, Jennifer Osborne, PRAVEEN, Xochitl Bowman, PRESCHOOL ASSISTANT PRINCIPAL, Rubin Cordero PA-C, Marci Ibarra, MING, Marcella Stewart, PRAVEEN, Ene Castellanos, PRAVEEN [facility] IN-PATIENT SERVICE [facility] Progress Note 04/26/2023 8:15 AM Name: Tracy Bennett Acct: [id number] Room: 0318/0318-01 Day: 4 Admit Date: 04/22/2023 [...] 28 y.o. who was a transfer from [facility] due to drug overdose. Patient went to ER at [facility] due to suspected drug overdose. Patient had [...] included she just got out of the alf a couple of weeks ago and they [...] that clinical picture, patient was sent to [place] [facility] for further management. Upon arrival she [...] 03:27 AM PBEA 3.5 04/22/2023 03:27 AM [id number] 94.0 04/22/2023 03:27 AM Lab Results Component [...] with boss in the vehicle. Taken to [facility] where there was suspicion of drug overdose. [...] results for input(s): POCPH, POCPCO2, POCPO2, POCHCO3, [id number] in the last 72 hours. CBC: Recent [...] George MD Internal Medicine Resident, PGY- 3 [facility]; [place], [place] 04/26/2023, 7:07 AM Please note that this chart was generated using voice recognition Dragon dictation software. Although every effort was made to ensure the accuracy of this automated duster tender, some errors in duster tender may have occurred. Attending Physician Statement I [...] to ensure the accuracy of this automated duster tender, some errors in duster tender may have occurred. Orlando Kay MD 04/26/2023 6:08 PM Critical care team - Resident sign-out to medicine service Date and time: 04/25/2023 12:16 PM Patient's name: Tracy Bennett Patient's account/billing number: [id number] Patient's Date of : 1995 Age: 28 [...] 28 y.o. who was a transfer from [facility] due to drug overdose. Patient went to ER at [facility] due to suspected drug overdose. Patient had [...] included she just got out of the alf a couple of weeks ago and they [...] that clinical picture, patient was sent to [place] [facility] for further management. Upon arrival she [...] from the original note were not included. [facility] Department of Internal Medicine & Critical Care - Staff Internal Medicine Teaching Service Critical Care - Daily Progress Note Date and time: 04/25/2023 7:29 AM Patient's name: Tracy Bennett Patient's account/billing number: [id number] Patient's Date of : 1995 Age: 28 [...] 28 y.o. who was a transfer from [facility] due to drug overdose. Patient went to ER at [facility] due to suspected drug overdose. Patient had [...] included she just got out of the alf a couple of weeks ago and they [...] that clinical picture, patient was sent to [place] [facility] for further management. Upon arrival she [...] ABGs: No results found for: PHART, PH, [id number], PCO2, PO2ART, PO2, XND9ETI, HCO3, BEART, BE, THGBART, THB, SXT8YNF, V4GSECYS, O2SAT, FIO2 Lactic Acid: No results found [...] Sheila Parekh MD PGY-3, Internal Medicine Resident [facility] [place] 04/25/2023, 7:29 AM Associated attestation - Robert [...] patient care in detail. Patient transferred from [facility] due to drug overdose. As per the [...] off at the time of transfer. Robert uDran MD Pulmonary and Critical Care Medicine Images from the original note were not included. [facility] Department of Internal Medicine & Critical Care - Staff Internal Medicine Teaching Service Critical Care - Daily Progress Note Date and time: 04/24/2023 8:18 AM Patient's name: Tracy Bennett Patient's account/billing number: [id number] Patient's Date of : 1995 Age: 28 [...] 28 y.o. who was a transfer from [facility] due to drug overdose. Patient went to ER at [facility] due to suspected drug overdose. Patient had [...] included she just got out of the alf a couple of weeks ago and they [...] that clinical picture, [facility]. Upon arrival she was [...] ABGs: No results found for: PHART, PH, [id number], PCO2, PO2ART, PO2, QQX3KHJ, HCO3, BEART, BE, THGBART, THB, HKM1EUS, A9ODALXR, O2SAT, FIO2 Lactic Acid: No results found [...] Sheila Parekh MD PGY-2, Internal Medicine Resident [facility] [place] 04/24/2023, 8:18 AM Associated attestation - Robert [...] Patient's name: Tracy Bennett Patient's account/billing number: [id number] Patient's Date of : 1995 Age: 28 y.o. Date of Admission: 04/22/2023 1:42 AM Length of stay during current admission: 1 Primary Care Physician: VICKIE NUÑEZ ICU Attending Physician: Dr. Olivia Code Status: Full Code Reason for ICU admission: drug overdose SUBJECTIVE: History Of Present Illness: History was obtained from chart review. Tracy Bennett is a 28 y.o. who was a transfer from [facility] due to drug overdose. Patient went to ER at [facility] due to suspected drug overdose. Patient had [...] included she just got out of the alf a couple of weeks ago and they [...] that clinical picture, patient was sent to [place] [facility] for further management. Upon arrival she [...] amphetamine and fentanyl - Upon arrival to [facility], creatinine 2.36, CK 10,778, myoglobin 14,630 Radiology/Imaging: [...] [x] No [] Yes Mira Reyes MD Associate Creative Director Resident [facility] 04/23/2023, 10:17 AM Critical Care Attending Physician [...] Care Medicine documented in this encounter [facility] Evaluation note Note Date & Type Note [...] site not specified documented in this encounter [facility] Evaluation note Note Date & Type Note Facility Evaluation note No assessment information availa ble [facility] Work Phone: Hospital Discharge instructions Note Date & Type Note Facility Hospital Discharge instructions Additional Instructions If your symptoms return/worsen or you develop any further concerns or symptoms please see your doctor or return to the emergency department immediately. [facility] Work Phone: Summary Purpose Family [...] section and content) DATE CREATED AUTHOR 06/04/2019 [facility] DATE CREATED AUTHOR AUTHOR'S ORGANIZ ATION 06/04/2022 [facility] DATE CREATED AUTHOR AUTHOR'S ORGANIZ ATION 06/02/2023 [facility] DATE CREATED AUTHOR AUTHOR'S ORGANIZ ATION 02/22/2024 [facility] Reason for Visit (unrecogniz ed section and content) Specialty Diagnoses / Procedures Referred By Contvida t Referred To Contact Diagnoses Acute kidney injury (HCC) Drug overdose of undetermined intent, initial encounter acute kidney injury Salo Olivia MD [address] [facility] [address] [place] [address] [facility] [address] [place] [address] Referral ID Status Reason Start Date Expiration Date Visits Re quested Visits Authorized [id number] 1 1 Ordered Prescriptions (unrec ognized section [...] Care Teams (unrecognized sec tion and content) Medicine Tech Relationship Specialty Start Date End Date Vickie Nuñez [address] [place] [id number] PCP - General Nurse Practitioner 04/22/23 Team [...] BE BASED ON THE PRIMARY CLINICAL RECORDS. [facility] [employer] [facility]. provides no warranty or guarantee of the accuracy or completeness of information in this document.
[2024-05-14 16:22] VITALS: BP 127/67; PULSE 99; TEMP 36.6; O2SAT 98; BMI 33.7
--- NOTE | 2024-05-14 17:01 | ED_ITS ---
HPI HPI - General Adult General Chief complaint: Skin/Abscess/Foreign Body Stated complaint: REPACK ABCESS ON NECK Time Seen by Provider: 05/14/24 16:01 Source: patient Mode of arrival: walk-in History of Present Illness HPI narrative: 29-year-old female presents here with a chief complaint of needing packing removed from an abscess. She was seen here on 10 May and had an incision and drainage of a large abscess on the thoracic back region. She has been taking Keflex and Bactrim. She does have a history of staph infection in the past. She has not been able to follow-up with a primary care physician. She states she does not have insurance. She is here for us to reevaluate the wound and remove packing. Related Data Home Medications ?Medication ?Instructions ?Recorded ?Confirmed aripiprazole 10 mg tablet 10 mg PO DAILY 08/04/23 08/04/23 buspirone 10 mg tablet 10 mg PO BID 08/04/23 08/04/23 clonidine HCl 0.1 mg tablet 0.1 mg PO TID 08/04/23 08/04/23 cyclobenzaprine 10 mg tablet 10 mg PO TID 08/04/23 08/04/23 gabapentin 300 mg capsule 300 mg PO TID 08/04/23 08/04/23 hydroxyzine HCl 25 mg tablet 25 mg PO DAILY 08/04/23 08/04/23 Previous Rx's ?Medication ?Instructions ?Recorded sulfamethoxazole 800 1 tab PO BID 10 days #20 tabs 08/06/23 mg-trimethoprim 160 mg tablet (Bactrim DS) cephalexin 500 mg capsule 500 mg PO QID 7 days #28 caps 05/10/24 oxycodone-acetaminophen 5 mg-325 1 tab PO Q4H PRN pain #10 tabs 05/10/24 mg tablet (Percocet) sulfamethoxazole 800 1 tab PO TID 10 days #30 tabs 05/10/24 mg-trimethoprim 160 mg tablet (Bactrim DS) Allergies Allergy/AdvReac Type Severity Reaction Status Date / Time No Known Drug Allergies Allergy Verified 05/10/24 06:57 Opioid HPI Opioid Management Most Recent Opioid Data: Last Pain Scale 7 05/10/24 08:06 Ur Phencyclidine Scrn Negative (NEGATIVE) 04/21/23 17:00 Review of Systems ROS0 Narrative All Systems are negative except as noted/marked.All systems reviewed and otherwise negative PFSH PFSH Social History Smoking status: Current every day smoker Exam Narrative Exam Narrative: Nurses note and vital signs reviewed and patient is not hypoxic. General: The patient appears well and in no apparent distress. Patient is resting comfortably on cart. Skin: Warm, dry, no pallor noted. Large healing abscess with packing noted minimal fluctuance. Head: Normocephalic, atraumatic Eye: Normal conjunctiva, no drainage, EOMI. PERRL Ears, Nose, Mouth, and Throat: oral mucosa is moist. Nares patent. Mouth without vesicles. Ear canals patent. Tm's without Erythema Musculoskeletal: The patient has no evidence of calf tenderness, no pitting edema, symmetrical pulses noted bilaterally Neurological: A&O x4, normal speech Psychiatric: Cooperative Constitutional Vital Signs, click to edit/add: Last Vital Signs Temp 98 F 05/14/24 16:22 Pulse 99 H 05/14/24 16:22 Resp 18 05/14/24 16:22 BP 127/67 05/14/24 16:22 Pulse Ox 98 05/14/24 16:22 O2 Del Method Room Air 05/14/24 16:22 Course Vital Signs Vital signs: Vital Signs Temperature 98 F 05/14/24 16:22 Pulse Rate 99 H 05/14/24 16:22 Respiratory Rate 18 05/14/24 16:22 Blood Pressure 127/67 05/14/24 16:22 Pulse Oximetry 98 05/14/24 16:22 Oxygen Delivery Method Room Air 05/14/24 16:22 Temperature 98 F 05/14/24 16:22 Pulse Rate 99 H 05/14/24 16:22 Respiratory Rate 18 05/14/24 16:22 Blood Pressure 127/67 05/14/24 16:22 Pulse Oximetry 98 05/14/24 16:22 Oxygen Delivery Method Room Air 05/14/24 16:22 Medical Decision Making [facility] Narrative Medical decision making narrative: 29-year-old female presents here with a chief complaint of needing packing removed from an abscess. She was seen here on 10 May and had an incision and drainage of a large abscess on the thoracic back region. She has been taking Keflex and Bactrim. She does have a history of staph infection in the past. She has not been able to follow-up with a primary care physician. She states she does not have insurance. She is here for us to reevaluate the wound and remove packing. Dressing was removed from her back. Patient had packing which was removed, copious amount of purulent drainage was expressed. The area was then irrigated well with Hibiclens and normal saline. Copious amount of fluid was expressed. Quarter-inch packing was then placed. Dressing applied by nursing staff. Patient advised to continue taking medications as prescribed. She denies any fevers or chills. She was given Bactrim and Keflex previously with history of staph. Patient instructed to follow-up with general surgeon Dr. Diamond or primary care physician. I did instruct significant other on how to repack this wound. Patient agrees with plan of care. Wound does appear much improved from previous documentation. Discharge Plan Discharge Chief Complaint: Skin/Abscess/Foreign Body Clinical Impression: Abscess, Encounter for wound care Patient Disposition: Home, Self-Care Time of Disposition Decision: 16:51 Condition: Good Prescriptions / Home Meds: No Action aripiprazole 10 mg tablet 10 mg PO DAILY buspirone 10 mg tablet 10 mg PO BID clonidine HCl 0.1 mg tablet 0.1 mg PO TID cyclobenzaprine 10 mg tablet 10 mg PO TID gabapentin 300 mg capsule 300 mg PO TID hydroxyzine HCl 25 mg tablet 25 mg PO DAILY sulfamethoxazole-trimethoprim [Bactrim DS] 800-160 mg tablet 1 tab PO BID 10 Days Qty: 20 0RF sulfamethoxazole-trimethoprim [Bactrim DS] 800-160 mg tablet 1 tab PO TID 10 Days Qty: 30 0RF cephalexin 500 mg capsule 500 mg PO QID 7 Days Qty: 28 0RF oxycodone-acetaminophen [Percocet] 5-325 mg tablet 1 tab PO Q4H PRN (Reason: pain) Qty: 10 0RF Print Language: Thai Instructions: Abscess Follow-up (ED), Abscess Incision and Drainage (DC), Incision and Drainage (ED) Additional Instructions: Packing in 48 hours as discussed and instructed. Follow-up with Dr. Diamond as previously directed by Dr. Gtz. Continue taking Bactrim and Keflex until is completely gone. Return to the emergency room symptoms change or worsen. Abscess does appear to be improving from previous documentation. Referrals: GHASSAN AL [Primary Care Provider] - 1 week
== END 2024-05-14 17:04 | disposition home or self-care (01) ==
PROVIDERS: Emergency Provider Emergency Medicine; PCP Nurse Practitioner Family
DX: Z48.00 Encounter for change or removal of nonsurgical wound dressing (principal); L02.212 Cutaneous abscess of back [any part, except buttock and flank]; F17.200 Nicotine dependence, unspecified, uncomplicated
CPT/HCPCS: 99282